=== PATIENT | female | born 1945 | race Caucasian/White ===

== ENCOUNTER 2023-09-24 00:29 | Inpatient (IN) | payer MEDICARE, SELFPAY ==
[2023-09-24] VITALS (19 sets, daily range): BP systolic 161–280; BP diastolic 80–120; PULSE 67–83; RESP 12–23; TEMP 36.6–37; O2SAT 95–100; BMI 21.1
--- NOTE | ~2023-09-24 | US_ITS ---
EXAMINATION: US RETROPERITONEAL LIMITED (RENAL ONLY) CLINICAL INFORMATION: CLEMENTE, JANEY. COMPARISON: None available. TECHNIQUE: Routine grayscale, color color and Doppler imaging of kidneys was performed. FINDINGS: RIGHT KIDNEY: 10.5 x 4.1 x 4.5 cm (SAG x AP x TRV). The kidney is normal in size, contour, and echogenicity. Renal cortical thickness is normal. There are no echogenic calculi seen. There is anechoic cyst with septation midpole measuring 5.0 x 2.5 x 3.7 cm. No congenital calculi seen.. No hydronephrosis. On Doppler imaging there is index upper pole is 0.67, midpole 0.67 and lower pole are 0.59. Peak systolic velocity/end osteoblastic velocity proximal renal artery measures 103/14.6 cm/second, midsegment measures 71.6/21.6 cm/second and distal segment measures 79.3/20.8 cm/second. The abdominal aorta is of normal caliber with peak systolic velocity of 75.5 cm/second LEFT KIDNEY: The left kidney has been surgically removed. US/US renal BI IMPRESSION: 1. No echogenic renal calculi or hydronephrosis. 2. Complex cyst midpole right kidney. 3. Normal Doppler imaging right kidney. 4. The left kidney has been surgically removed.
--- NOTE | ~2023-09-24 | US_ITS ---
EXAMINATION: US RETROPERITONEAL LIMITED (RENAL ONLY) CLINICAL INFORMATION: CLEMENTE, JANEY. COMPARISON: None available. TECHNIQUE: Routine grayscale, color color and Doppler imaging of kidneys was performed. FINDINGS: RIGHT KIDNEY: 10.5 x 4.1 x 4.5 cm (SAG x AP x TRV). The kidney is normal in size, contour, and echogenicity. Renal cortical thickness is normal. There are no echogenic calculi seen. There is anechoic cyst with septation midpole measuring 5.0 x 2.5 x 3.7 cm. No congenital calculi seen.. No hydronephrosis. On Doppler imaging there is index upper pole is 0.67, midpole 0.67 and lower pole are 0.59. Peak systolic velocity/end osteoblastic velocity proximal renal artery measures 103/14.6 cm/second, midsegment measures 71.6/21.6 cm/second and distal segment measures 79.3/20.8 cm/second. The abdominal aorta is of normal caliber with peak systolic velocity of 75.5 cm/second LEFT KIDNEY: The left kidney has been surgically removed. US/US renal doppler IMPRESSION: 1. No echogenic renal calculi or hydronephrosis. 2. Complex cyst midpole right kidney. 3. Normal Doppler imaging right kidney. 4. The left kidney has been surgically removed.
--- NOTE | ~2023-09-24 | XR_ITS ---
EXAMINATION: XR CHEST CLINICAL INFORMATION: Syncope. COMPARISON: 07/08/2015. TECHNIQUE: Frontal view of the chest was obtained. FINDINGS: The cardiomediastinal silhouette is stable and within normal limits. There is apparent pulmonary vascular congestion and diffuse increased markings. There is blunting of the costophrenic angles. The bony structures and soft tissues are unremarkable XR/XR chest 1V IMPRESSION: Pulmonary vascular congestion and diffuse increased markings. Consider developing fluid overload or congestive heart failure with early edema. There appear to be small bilateral pleural effusions.
--- NOTE | ~2023-09-24 | US_ITS ---
EXAMINATION: US EXTRACRANIAL CAROTID DUPLEX, BILATERAL CLINICAL INFORMATION: Syncope COMPARISON: None available. TECHNIQUE: Real-time ultrasound and Doppler techniques (integrating B-mode 2-D vascular images, Doppler spectral analysis and color-flow Doppler imaging) were utilized to interrogate the extracranial carotid arteries, the vertebral arteries and proximal subclavian arteries bilaterally. The degree of stenosis is determined by criteria similar to NASCET. FINDINGS: Right Side: 1. There is high atherosclerotic plaque seen in the bifurcation/proximal ICA/bulb region. 2. The common carotid artery PSV proximally is 85 cm/s and distally 72 cm/s. 3. The proximal internal carotid artery velocities are 84 cm/s systolic and 22 cm/s diastolic. 4. The proximal external carotid artery PSV is 114 cm/s. 5. The vertebral artery shows antegrade is flow. 6. The subclavian artery waveforms are normal. Left Side: 1. There is soft atherosclerotic plaque seen in the bifurcation/proximal ICA region. 2. The common carotid artery PSV proximally is 103 cm/s and distally 8 cm/s. 3. The proximal internal carotid artery velocities are 79 cm/s systolic and 14 cm/s diastolic. 4. The proximal external carotid artery PSV is 135 cm/s. 5. The vertebral artery shows antegrade flow. 6. The subclavian artery waveforms are normal. US/US carotid duplex BI IMPRESSION: 1. RIGHT: No hemodynamically significant stenosis in right carotid artery. 2. LEFT: 0-49% range stenosis in left proximal ICA and bulb region. 3. Normal antegrade flow seen in both vertebral arteries.
--- NOTE | ~2023-09-24 | CT_ITS ---
EXAMINATION: CT head/brain wo IV con, CT cervical spine wo IV con CLINICAL INFORMATION: Reason for Exam FALL HEAD STRIKE COMPARISON: MRI brain 06/04/2014 TECHNIQUE: Contiguous axial imaging was performed from the skull base to vertex without intravenous contrast. Sagittal and coronal reformatted images were obtained. CT images of the cervical spine were acquired without intravenous contrast. This CT examination was performed using dose optimization techniques as appropriate, variously including the following: * Automated exposure control * Adjustment of mA and/or kV according to patient size (this includes techniques or standardized protocols for targeted exams where dose is matched to indication/reason for exam; i.e. extremities or head) Use of iterative reconstruction technique DLP: 830.97 mGy-cm mGy-cm FINDINGS: CT HEAD: Motion degraded examination. There is no evidence of acute intracranial hemorrhage. No mass-effect or ventricular shift is noted. No acute, territorial loss of bishop-white differentiation. Encephalomalacia/gliosis in the right occipital lobe. Generalized cerebral volume loss with associated ventricular and sulcal prominence.Periventricular and subcortical white matter hypodensity is nonspecific but likely represents chronic microvascular ischemic change. Intracranial atherosclerotic calcification is noted. Soft tissue swelling/hematoma along the right posterior calvarium. No underlying depressed calvarial fracture.The paranasal sinuses are well-aerated. The mastoid air cells are clear. Bilateral intraocular lens replacements. CT CERVICAL SPINE: No prevertebral soft tissue swelling. The craniocervical junction is intact. The cervical lordosis is preserved. Grade 1 anterolisthesis of C4-C5, C5-C6, and C7-T1. Vertebral body heights are normal without acute compression fracture. No suspicious osseous lesion. There is multilevel cervical spondylosis. Biapical pleural parenchymal scarring. CT/CT cervical spine wo IV con IMPRESSION: No acute intracranial hemorrhage. Soft tissue swelling/hematoma along the right posterior calvarium. No underlying depressed calvarial fracture. No acute, displaced cervical spine fracture.
--- NOTE | 2023-09-24 00:48 | PC.NURSE ---
provider Elmolgy aware patient presenting with slight confusion and high BP. At time of triage pt pupils reactive. Pt answering questions however confused about what happened, why she is here, what the year is , and what her date of is. Per patient usually A&Ox4 with no confusion. Head CT/C spine CT ordered.
--- NOTE | 2023-09-24 00:59 | ECG_ITS ---
Test Reason : FALL Blood Pressure : / mmHG Vent. Rate : 068 BPM Atrial Rate : 068 BPM P-R Int : 156 ms QRS Dur : 086 ms QT Int : 430 ms P-R-T Axes : 032 -24 049 degrees QTc Int : 457 ms Normal sinus rhythm Minimal voltage criteria for LVH, may be normal variant ( Fuentes product ) Anteroseptal infarct (cited on or before 04-JUN-2014) Abnormal ECG When compared with ECG of 09-JUL-2015 07:04, No significant change was found Referred By: Chalino Dockery Electronically Signed By:ZANE SANTACRUZ
--- NOTE | 2023-09-24 01:04 | ED_ITS ---
HPI - Head Injury General Chief complaint: Head Injury Stated complaint: FALL Time Seen by Provider: 09/24/23 00:51 Source: patient, family () and EMS Mode of arrival: EMS Limitations: physical limitation (Patient is a poor historian) History of Present Illness HPI Narrative: This is a 78-year-old female brought in by ambulance for evaluation after fall/syncope. Patient and left together independently at home as per patient, patient otherwise unable to provide history, no old records for this patient in our facility despite patient confirmed she has been here before, patient can not confirm her medication including anticoagulation therapy, do not remember details of the fall, complaining of right occipital area hematoma and pain with headache. Patient declined CP or SOB. Declined any other injury or pain in the extremities. Related Data Allergies Allergy/AdvReac Type Severity Reaction Status Date / Time No Known Allergies Allergy Verified 09/24/23 00:48 Review of Systems 2 Review of Systems: All other systems are reviewed and are negative Constitutional: Reports as per HPI and Reports no additional constitutional complaints Eyes: Reports as per HPI and Reports no additional eye complaints Reports system reviewed and no additional complaints, except as documented Cardiovascular: Reports as per HPI and Reports no additional cardiovascular complaints Respiratory: Reports as per HPI and Reports no additional respiratory complaints Gastrointestinal: Reports as per HPI and Reports no additional gastrointestinal complaints Genitourinary: Reports no additional female genitourinary complaints Musculoskeletal: Reports no additional musculoskeletal complaints Skin/Breast: Reports system reviewed and no additional complaints, except as docu Psychiatric: Reports no additional psychiatric complaints Endocrine: Reports no additional endocrine complaints Hematologic/Lymphatic: Reports no additional hematologic/lymphatic complaints Allergic/Immunologic: Reports no additional allergic/immunologic complaints Reports system reviewed and no additional complaints, except as documented and Reports Abnormal speech present [facility] Social History Social History Smoked in Last 30 Days: No Use of substances other than those prescribed or required for medical reasons: No Advance Directives: No Advance Directives Information Provided: Yes Physical Exam 2 Vital Signs: Vital Signs: Last Vital Signs Pulse 69 09/24/23 02:53 Resp 16 09/24/23 02:53 BP 232/93 H 09/24/23 02:53 Pulse Ox 99 09/24/23 02:53 O2 Del Method Room Air 09/24/23 02:53 BMI result Body Mass Index 21.1 Vital signs have been reviewed and appear to be correct. Blood pressure elevated. Heart rate normal. Respiratory rate normal. Temperature normal. Oxygen saturation normal. Appearance: Alert. Oriented X2 place, person but not to time. No acute distress. GCS 15 Head: Normal external exam. Normocephalic. 3 x 3 cm area of right occipital hematoma, no step-off, no deformity. No Shen signs noted. No raccoon eyes noted Eyes: PERRLA. EOMI. Conjunctiva and sclera normal. Eyelids normal. ENT: TM's Normal. Pharynx normal. Uvula midline. Moist mucous membranes. No trismus noted. No drooling noted. No muffled voice noted. Neck: Normal inspection. Neck supple. FROM. No adenopathy. Thyroid Normal. No meningeal signs. No neck mass noted. CVS: Normal heart rate and rhythm. Heart sound normal. No murmurs noted. Pulses normal throughout. Respiratory: No respiratory distress. Painless inspiration. Breath sounds normal. No wheezes/rales/rhonchi noted. Chest nontender. No accessory muscle usage noted or decreased air movement noted. Abdomen: Soft and nontender. Bowel sounds normal in all 4 quadrants. No distention noted. No organomegaly noted. No visible injury noted. Back: No CVA tenderness. Full range of motion noted. Skin: Skin warm and dry. Normal skin color. Normal skin turgor. No rashes/lesions/lacerations noted. Extremities: +1 lower extremity edema. Extremities exhibit normal range of motion. Extremities nontender. Neuro: Oriented X2 not to time.. Cranial nerve exam: II-XII are grossly intact No motor deficit. No sensory deficit. Reflexes normal. Course Reevaluation(s) Reevaluation #1: A 78-year-old female with unknown past medical history patient is a poor historian appears to be secondary to dementia no record is available in our facility and patient does not know what she normally receives her medical care came in after she sustained a fall of unclear mechanism but possibly syncope, x- ray of the chest show pulmonary edema with elevated BNP patient declined any dyspnea or PND, found to have high blood pressure in the emergency department will give her a dose of Lasix/nitro paste/low dose of amlodipine for elevated blood pressure. Occipital scalp hematoma with no intracranial bleed with GCS of 15. Time: 02:59 Medical Decision Making Differential Diagnosis Differential Diagnoses: The differential diagnosis associated with the presentation includes (Severe anemia, electrolyte abnormality, intracranial bleed, coagulopathy, ACS, syncope, mechanical fall, cervical spine injury, CHF.) Admission/Observation Consideration of admission/observation: Escalation of care including admission/observation considered Lab Data MDM Lab Attestation statement: I reviewed the patient's lab results. 09/24/23 01:30 09/24/23 01:30 Labs: Lab Results 09/24/23 Range/Units 01:30 WBC 5.3 (4.8-10.8) X10*3/uL RBC 3.30 L (4.20-5.50) X10*6/uL Hgb 12.1 (12.0-16.0) g/dl Hct 35.5 L (37.0-47.0) % MCV 107.6 H (80.0-98.0) fL MCH 36.7 H (27.0-33.0) pg MCHC 34.1 (31.0-35.0) g/dl RDW 14.2 (11.0-16.0) % Plt Count 200 (160-400) X10*3/uL MPV 10.4 (9.4-12.3) fL Immature Gran % (Auto) 0.4 (0.0-0.4) % Neut % (Auto) 56.7 (45-73) % Lymph % (Auto) 25.7 (20-40) % [place] % (Auto) 12.7 H (2-11) % Eos % (Auto) 3.4 (0-4) % Baso % (Auto) 1.1 (0-2) % Lymph # (Auto) 1.4 (1.2-4.9) X10*3/uL [place] # (Auto) 0.7 (0.1-1.2) X10*3/uL Eos # (Auto) 0.2 (0.0-0.4) X10*3/uL Baso # (Auto) 0.1 (0.0-0.2) X10*3/uL Abs Immat Gran (auto) 0.02 (0.00-0.03) X10*3/uL Absolute Neuts (auto) 3.0 (2.0-8.3) x10*3/uL Absolute Nucleated RBC 0.000 (0.0-0.012) X10*3/uL Nucleated RBC % (auto) 0.0 (0.0-0.2) /100WBC PT 11.5 (11.1-13.3) SEC INR 0.9 (0.9-1.1) Sodium 141 (135-145) mmol/L Potassium 4.8 (3.3-5.1) mmol/L Chloride 107 (96-108) mmol/L Carbon Dioxide 25 (22-29) mmol/L Anion Gap 14 (12-20) BUN 16 (9-16) mg/dL Creatinine 1.76 H (0.5-1.4) mg/dL Estim Creat Clear Calc 18.6 Estimated GFR 28 Random Glucose 88 (60-115) mg/dL Calcium 8.9 (8.4-10.2) mg/dL Total Bilirubin 0.5 (0.0-1.0) mg/dL Direct Bilirubin 0.1 (0.0-0.5) mg/dL AST 30 (5-31) U/L ALT 12 (0-31) U/L Alkaline Phosphatase 88 (39-117) U/L Total Creatine Kinase 43 (26-140) U/L Troponin I High Sens 10.6 (<3.5-17.0) ng/L B-Natriuretic Peptide 677 H (<100) pg/mL Total Protein 6.8 (6.5-8.0) g/dL Albumin 3.3 L (3.5-5.0) g/dL Lipase 51 (8-78) U/L Independent Interpretation I performed an independent interpretation of an: Plain X-Ray (Chest:Pulmonary vascular congestion and diffuse increased markings. Consider developing fluid overload or congestive heart failure with early edema. There appear to be small bilateral pleural effusions. ) and CT Scan (Head/C-spine:No acute intracranial hemorrhage. Soft tissue swelling/hematoma along the right posterior calvarium. No underlying depressed calvarial fracture. No acute, displaced cervical spine fracture.) Radiology Impression Discussion of test interpretation with radiology: I have reviewed the radiologist's reading. Chronic Conditions Patient?s care impacted by: Hypertension Critical Care Time Critical Care Time Critical Care Time: Yes Total Critical Care Time: 45 Attestation: I spent 45 minutes providing critical care service to the patient, this including time spent at the bedside to evaluate the patient, reassess the patient, monitoring vital signs, review labs, and radiographic studies, counseling the patient/family, discussing the case with consultants, disposition the patient. Discharge Plan Discharge Clinical Impression: Closed head injury, Syncope, CHF (congestive heart failure), Hypertension Patient Disposition: Admitted As Inpatient
[2023-09-24 01:36] LABS: MANUAL DIFF FLAG NO
[2023-09-24 01:38] LABS: Basophils Absolute Auto 0.1 X10*3/uL (0.0-0.2); Basophils Percent Auto 1.1 % (0-2); Eosinophils Absolute Auto 0.2 X10*3/uL (0.0-0.4); Eosinophils Percent Auto 3.4 % (0-4); Hematocrit 35.5 % (37.0-47.0); Hemoglobin 12.1 g/dl (12.0-16.0); Imm Gran Abs Auto 0.02 X10*3/uL (0.00-0.03); Imm Gran Pct Auto 0.4 % (0.0-0.4); Lymphocytes Absolute Auto 1.4 X10*3/uL (1.2-4.9); Lymphocytes Percent Auto 25.7 % (20-40); Mean Corpuscular HGB Conc 34.1 g/dl (31.0-35.0); Mean Corpuscular Hemoglobin 36.7 pg (27.0-33.0); Mean Corpuscular Volume 107.6 fL (80.0-98.0); Mean Platelet Volume 10.4 fL (9.4-12.3); Monocytes Absolute Auto 0.7 X10*3/uL (0.1-1.2); Monocytes Percent Auto 12.7 % (2-11); Neutrophils Percent Auto 56.7 % (45-73); Platelet Count 200 X10*3/uL (160-400); Red Cell Distribution Width 14.2 % (11.0-16.0); White Blood Count 5.3 X10*3/uL (4.8-10.8)
[2023-09-24 01:44] LABS: INTERNATIONAL NORM RATIO 0.9 (0.9-1.1); Prothrombin Time 11.5 SEC (11.1-13.3)
[2023-09-24 01:57] LABS: Alanine Aminotransferase 12 U/L (0-31); Albumin Level 3.3 g/dL (3.5-5.0); Alkaline Phosphatase 88 U/L (39-117); Anion Gap 14 (12-20); Aspartate Amino Transferase 30 U/L (5-31); Bilirubin Direct 0.1 mg/dL (0.0-0.5); Bilirubin Total 0.5 mg/dL (0.0-1.0); Blood Urea Nitrogen 16 mg/dL (9-16); Calcium 8.9 mg/dL (8.4-10.2); Carbon Dioxide 25 mmol/L (22-29); Chloride 107 mmol/L (96-108); Creatinine Clr Calc Pharmacy 18.6; Estimated Glomerular Filt Rate 28; Glucose Random 88 mg/dL (60-115); Lipase 51 U/L (8-78); Potassium 4.8 mmol/L (3.3-5.1); Sodium 141 mmol/L (135-145); Total Protein 6.8 g/dL (6.5-8.0)
[2023-09-24 01:58] LABS: B Type Natriuretic Peptide 677 pg/mL (<100); Troponin-I High Sensitivity 10.6 ng/L (<3.5-17.0)
--- NOTE | 2023-09-24 02:53 | PC.NURSE ---
PTS BP continues to be elevated at 232/93, Dr. French made aware, Amlodipine ordered. PT continues to be confused, asked this sports book writer several times how she hit her head. Dr. French aware.
[2023-09-24 02:59] LABS: Appearance Urine Clear; Color Urine Yellow; Glucose Urine UA Negative (Negative); Leukocyte Esterase Urine Trace (Negative); Nitrite Urine Negative (Negative); PH 7.5 (5.0-9.0); Specific Gravity - Urine <= 1.005 (1.005-1.025); UMIC TRIGGER UACC YES; Urine Blood Negative (Negative); Urine Ketones Negative (Negative); Urine Protein Negative (Neg-Trace)
[2023-09-24] MEDS: amLODIPine Besylate 5 MG TABLET PO (02:59)
[2023-09-24 03:01] LABS: Bacteria Urine None Seen (None Seen); Hyaline Casts Urine 0-2 /LPF (0-2); RBC Urine 0-2 /HPF (0-2); Squamous Epithelial Cell Urine 0-2 /HPF (0-2); WBC Urine 0-5 /HPF (0-5)
[2023-09-24] MEDS: Nitroglycerin 2 % Oint 1 GM Packet 0.5 INCH TRANSDERMA (03:02)
[2023-09-24] MEDS: Furosemide 40 MG/4 ML VIAL IVPUSH ×2 (03:03→09:41)
--- NOTE | 2023-09-24 04:05 | P.HPHOSP_ITS ---
History of Present Illness Date of Service: 09/24/23 Attending physician on admission: Jocelyn Hussein Chief Complaint: Loss of consciousness Nataliya Forrest is a 78 years old woman who was brought to the ED via EMS after she sustained a fall and hit the posterior aspect of her head. The patient does not have any recollection of what happened and was unable to provide a precise HPI. Even her who was at bedside was not contributing much to the HPI. She does not recall the name of her medication or her past medical history. She thinks that she uses a medication for high blood pressure. She told me multiple occasions that she is always in good health and that she has been always healthy one . At the moment, she only complains of headache related to the head trauma. She denied dizziness, shortness on breath at rest or exertion, chest pain, palpitations, focal weakness, cough, fever or chills. She denies edema to lower extremities. She did not complain of any abdominal pain, nausea, vomiting or diarrhea. In the ED, she was found to have significant systolic hypertension. The rest of the vital signs are normal. Her oxygen saturation is 99% on room air. Blood workup showed no leukocytosis. MCV is elevated. There are no electrolyte imbalances. Creatinine is 1.76. BNP is elevated, 677. LFTs are normal. Head and c-spine CT scans are unremarkable. CXR showed pulmonary vascular congestion and diffuse increased marking (fluid overload or CHF with early edema). ED tx: Amlodipine 5 mg p.o., Lasix 40 mg IV, nitro ointment 0.5 in transdermal, acetaminophen 975 mg PO. Review of Systems 2 Review of Systems: Limited, possibly underlying dementia. [facility] Social History Smoked in Last 30 Days: No Use of substances other than those prescribed or required for medical reasons: No Advance Directives: No Advance Directives Information Provided: Yes Meds Allergies Allergy/AdvReac Type Severity Reaction Status Date / Time No Known Allergies Allergy Verified 09/24/23 00:48 Active Medications: Current Medications Acetaminophen (Acetaminophen 325 Mg Tablet) 650 mg PO Q6H PRN PRN Reason: Pain, Mild (Pain Scale 1-3) Furosemide (Furosemide 20 Mg Tablet) 20 mg PO DAILY RAMY; Protocol Heparin Sodium (Porcine) (Heparin Sodium,Porcine 5,000 Unit/Ml Vial) 5,000 unit SUBCUT Q12H [facility] Sodium Chloride (0.9 % Sodium Chloride Flush 3 Ml Syringe) 3 ml IVFLUSH QSHIFT RAMY Physical Exam 2 Vital Signs and Narrative: Vital Signs: Last Vital Signs Pulse 69 09/24/23 02:53 Resp 16 09/24/23 02:53 BP 232/93 H 09/24/23 02:53 Pulse Ox 99 09/24/23 02:53 O2 Del Method Room Air 09/24/23 02:53 BMI result Body Mass Index 21.1 Constitutional - Awake and Alert, No apparent distress Eyes - PERRLA, EOMI Cardiovascular - S1S2, RRR, No edema Respiratory - Normal lung expansion, Normal respiratory effort, No respiratory distress. Bibasilar crackles. Gastrointestinal - NT / ND; +BS; No rebound or guarding Extremities - No calf tenderness bilaterally, no swelling Musculoskeletal - Normal inspection, normal ROM Skin - Warm/Dry Neurological - Alert & oriented x3. No focal weakness. Normal speech Psychological - Appropriate affect Results Labs 09/24/23 01:30 09/24/23 01:30 Labs: Laboratory Results - last 24 hr 09/24/23 09/24/23 01:30 02:51 MCV 107.6 H MCH 36.7 H MCHC 34.1 RDW 14.2 Plt Count 200 MPV 10.4 Immature Gran % (Auto) 0.4 Neut % (Auto) 56.7 Lymph % (Auto) 25.7 Moore % (Auto) 12.7 H Eos % (Auto) 3.4 Baso % (Auto) 1.1 Lymph # (Auto) 1.4 Moore # (Auto) 0.7 Eos # (Auto) 0.2 Baso # (Auto) 0.1 Abs Immat Gran (auto) 0.02 Absolute Neuts (auto) 3.0 Absolute Nucleated RBC 0.000 Nucleated RBC % (auto) 0.0 PT 11.5 INR 0.9 Anion Gap 14 Estim Creat Clear Calc 18.6 Estimated GFR 28 Random Glucose 88 Calcium 8.9 Total Bilirubin 0.5 Direct Bilirubin 0.1 AST 30 ALT 12 Alkaline Phosphatase 88 Total Creatine Kinase 43 B-Natriuretic Peptide 677 H Total Protein 6.8 Albumin 3.3 L Lipase 51 Urine Color Yellow Urine Appearance Clear Urine pH 7.5 Ur Specific [place] <= 1.005 Urine Protein Negative Urine Glucose (UA) Negative Urine Ketones Negative Urine Blood Negative Urine Nitrite Negative Ur Leukocyte Esterase Trace H Urine RBC 0-2 Urine WBC 0-5 Ur Squamous Epith Cells 0-2 Urine Bacteria None Seen Hyaline Casts 0-2 Imaging Radiologist's Impressions: Impressions Chest X-Ray 09/24/23 01:10 IMPRESSION: Pulmonary vascular congestion and diffuse increased markings. Consider developing fluid overload or congestive heart failure with early edema. There appear to be small bilateral pleural effusions. Cervical Spine CT 09/24/23 01:21 IMPRESSION: No acute intracranial hemorrhage. Soft tissue swelling/hematoma along the right posterior calvarium. No underlying depressed calvarial fracture. No acute, displaced cervical spine fracture. Head CT 09/24/23 01:21 IMPRESSION: No acute intracranial hemorrhage. Soft tissue swelling/hematoma along the right posterior calvarium. No underlying depressed calvarial fracture. No acute, displaced cervical spine fracture. Assessment and Plan (1) Pulmonary edema: Qualifiers: Chronicity: acute Qualified Code(s): J81.0 - Acute pulmonary edema Status: Acute (2) Hypertension: Qualifiers: Hypertension type: primary hypertension Qualified Code(s): I10 - Essential (primary) hypertension Status: Acute (3) Syncope: Qualifiers: Syncope type: unspecified Qualified Code(s): R55 - Syncope and collapse Status: Acute (4) Closed head injury: Qualifiers: Encounter type: initial encounter Qualified Code(s): S09.90XA - Unspecified injury of head, initial encounter Status: Acute Plan Nataliya Forrest is a 78 years old woman presents with: * Syncope. Keeping observation. Telemetry. * Mild pulmonary edema (no shortness a breath, no chest pain, normal oxygen saturation). Pulse oximetry. Supplemental oxygen if needed Continue Lasix. Check TTE. Recheck BNP. Check troponin x2. * Uncontrolled hypertension. Continue Norvasc. * Headache secondary to head trauma. Head and C-spine CT scan are normal. Tylenol as needed. * Fall. Fall precautions. Check vitamin-D level. * Elevated MCV. Check folate and vitamin B12. * Dementia? Check TSH and vitamin B12. DVT prophylaxis: Heparin subcut Code status: Full Quality Stroke Does the patient have a stroke diagnosis?: No VTE Prior VTE?: No VTE Risk Level:: Medical - moderate - high VTE Device Contraindication: Treatment Not Indicated VTE Drug Contraindication: N/A - Med Ordered
--- NOTE | 2023-09-24 04:21 | PC.NURSE ---
Dr. Casey Hussein aware of BP. pt crying stating she needs to go home tonight and there is no reason for me to stay here. pt educated on plan of care and medical necessity to stay. pt axo to self and place unable to state situation/believes it is 2022. previous shift stated this has been baseline since arrival. Dr. Casey Hussein aware of mentation and behavior at this time. PERRLA. skin wpd.
[2023-09-24] MEDS: LORazepam 0.5 MG TABLET 0.25 MG PO (04:43)
[2023-09-24] MEDS: Acetaminophen 325 MG TABLET 975 MG PO (04:43)
--- NOTE | 2023-09-24 05:10 | PC.NURSE ---
Addendum entered by Melva Grant 09/24/23 05:15: call bender within reach. tv turned on for pt. Original Note: pt had moderate BM appears dark. Dr. Casey Hussein visualized stool; obs obtained at bedside sent to lab. pt had an incontinence episode following; changed new bed linen provided. purewick provided. skin intact no sores/wounds/abrasions noted. PERRLA. neuros intact. pt appears more calm now. pt moved to room 10 closer to nurses station. Dr. Casey Hussein aware of vs.
[2023-09-24 05:14] LABS: MANUAL DIFF FLAG NO
[2023-09-24 05:19] LABS: Basophils Percent Auto 0.6 % (0-2); Eosinophils Absolute Auto 0.2 X10*3/uL (0.0-0.4); Eosinophils Percent Auto 3.7 % (0-4); Hematocrit 34.8 % (37.0-47.0); Hemoglobin 11.9 g/dl (12.0-16.0); Imm Gran Abs Auto 0.02 X10*3/uL (0.00-0.03); Imm Gran Pct Auto 0.3 % (0.0-0.4); Lymphocytes Absolute Auto 1.7 X10*3/uL (1.2-4.9); Lymphocytes Percent Auto 26.7 % (20-40); Mean Corpuscular HGB Conc 34.2 g/dl (31.0-35.0); Mean Corpuscular Hemoglobin 36.3 pg (27.0-33.0); Mean Corpuscular Volume 106.1 fL (80.0-98.0); Mean Platelet Volume 10.5 fL (9.4-12.3); Monocytes Absolute Auto 0.8 X10*3/uL (0.1-1.2); Monocytes Percent Auto 13.4 % (2-11); Neutrophils Absolute Auto 3.4 x10*3/uL (2.0-8.3); Neutrophils Percent Auto 55.3 % (45-73); Platelet Count 203 X10*3/uL (160-400); Red Blood Count 3.28 X10*6/uL (4.20-5.50); Red Cell Distribution Width 13.8 % (11.0-16.0); White Blood Count 6.2 X10*3/uL (4.8-10.8)
[2023-09-24 05:21] LABS: OBS Int Ctl Valid YES; OBS1 NEGATIVE (NEGATIVE)
[2023-09-24 05:40] LABS: Alanine Aminotransferase 11 U/L (0-31); Albumin Level 3.3 g/dL (3.5-5.0); Alkaline Phosphatase 88 U/L (39-117); Anion Gap 16 (12-20); Aspartate Amino Transferase 25 U/L (5-31); Bilirubin Total 0.5 mg/dL (0.0-1.0); Blood Urea Nitrogen 17 mg/dL (9-16); Calcium 9.2 mg/dL (8.4-10.2); Carbon Dioxide 23 mmol/L (22-29); Chloride 107 mmol/L (96-108); Creatinine Clr Calc Pharmacy 18.2; Estimated Glomerular Filt Rate 27; Glucose Random 86 mg/dL (60-115); Potassium 4.4 mmol/L (3.3-5.1); Sodium 142 mmol/L (135-145); Total Protein 6.6 g/dL (6.5-8.0)
[2023-09-24 05:44] LABS: Troponin-I High Sensitivity 8.3 ng/L (<3.5-17.0)
[2023-09-24 06:11] LABS: Folate 3.6 ng/mL (> or = 4.0); Vitamin B12 323 pg/mL (200-900)
[2023-09-24] MEDS: Labetalol HCL 100 MG/20 ML VIAL 10 MG IVPUSH ×4 (06:53→22:54)
[2023-09-24] MEDS: Pantoprazole Sodium 40 MG/10 ML VIAL IVPUSH (06:53)
--- NOTE | 2023-09-24 06:54 | PC.NURSE ---
pt found oob trying to leave. pt reassured and brought back to stretcher. placed back on heart monitor and vitals obtained. bp as noted prn labetolol given. call bender within reach. charge account clerk aware of need for sitter.
[2023-09-24] MEDS: Nitroglycerin 2 % Oint 1 GM Packet 1 INCH TRANSDERMA ×2 (07:34→19:18)
--- NOTE | 2023-09-24 08:08 | PHA.MEDREC ---
Pharmacy Consult ? Medication Reconciliation Pharmacy has completed the medication reconciliation.Confirmed medications with patient. Patient is unsure if she takes carvedilol 25mg BID (prescription) says she takes it at least once in the AM. Also is prescribed Alendronate 70mg but states is unsure if she is taking it.
--- NOTE | 2023-09-24 08:14 | MHC.EDTECH ---
placed a purewick after washing and replacing the chucks on the patients bed. trying a purewick to see if she will stay still enough for it to be effective.
[2023-09-24] MEDS: Heparin Sodium,Porcine 5,000 UNIT/ML VIAL 5000 UNIT SUBCUT ×2 (09:41→20:46)
[2023-09-24] MEDS: 0.9 % Sodium Chloride Flush 3 ML SYRINGE IVFLUSH ×3 (09:42→22:50)
[2023-09-24 11:05] LABS: Troponin-I High Sensitivity 10.8 ng/L (<3.5-17.0)
--- NOTE | 2023-09-24 11:28 | PC.NURSE ---
pt reports she wants to go home, refusing to allow staff to call her family - reportedly has two sons but pt and her do not know their numbers. pt reported to DR. Mcdonough that she is afraid that she will before seeing her sons again. both pt and at bedside severely confused, only alert to self. pts took off pts nitro paste, has been helping pt get dressed, both pt and report they are wanting to go home and they will walk home. dr mcdonough at beside talking with pt about the dangers of leaving and going home given her BP pt agreeable to stay, agreed to have Dr. Mcdonough call her son(s). unfortunately, no phone number at this time is available.
--- NOTE | 2023-09-24 11:48 | PC.NURSE ---
pts belongings removed from her room and held at nurses station as they encourage pt to get dressed and leave. shirt, pants and bra in bag
--- NOTE | 2023-09-24 12:04 | MHC.CM.PN ---
Addendum entered by Diana Gilbert 09/24/23 16:19: AFTER SPEAKING WITH HOSPITALIST, PTS SON DECIDED TO COME STAY WITH HIS FATHER WHILE HIS MOTHER IS IN THE HOSPITAL HE IS AWARE HIS FATHER HAS MEMORY IMPAIRMENT AND SAYS HE WILL PROVIDE ANY NECESSARY CARE DCP: HOME ? NEW VNA AND REFERRAL TO [facility] FOR [facility] SERVICES PTS SON TO TRANSPORT Addendum entered by Diana Gilbert 09/24/23 12:10: IMM ALSO DELIVERED TO PTS SON VIA T/C Original Note: CM MET WITH PT AND , JORDYN, AT BEDSIDE THEY REPORT THEY LIVE ALONE AND HAVE BEEN INDEPENDENT WITH CARE THEY HAVE TWO SONS, ONE IN [place] AND ONE IN [place] THEY INITIALLY REQUESTED FAMILY NOT BE CONTACTED THEY REPORT PT DOES NOT USE ANY DME AND HAD NO SERVICES BOTH PT AND INITIALLY SAID HE DROVE HERE, THEN SAID THEY GOT A RIDE PER EMR, PT ARRIVED BY AMBULANCE PT LATER STATED SHE WANTED TO LEAVE, SHE SAID IF SHE WERE TO , SHE WOULD WANT TO MAKE SURE SHE SAW HER BOYS SHE THEN AGREED TO LET HER SONS BE CONTACTED BUT DID NOT HAVE THEIR PHONE NUMBERS SHE PROVIDED CM WITH HER SONS NAME, AKOSUA WATKINS AND LOCATION IN [facility] CM WAS ABLE TO FIND RED NUMBER [phone] AND CALLED TO CONFIRM HIS RELATIONSHIP TO THE PT AKOSUA THEN SPOKE TO THE PT USING A CELL PHONE AFTER DISCUSSION, PT AGREES TO STAY AND RECEIVE TREATMENT AKOSUA IS CURRENTLY AWAITING A CALL FROM PTS HOSPITALIST IMM DELIVERED TO PT AND
--- NOTE | 2023-09-24 16:15 | PM.EVENT ---
Event Note Date of Service: 09/24/23 Event Note: Chart reviewed patient examined. Agree with the H&P as outlined. Aggressive blood pressure control. Spoke with son Clarence who will be here later today to assist with father's care Time Spent With Patient Time: Total time managing care of this patient today ____ minutes.
[2023-09-24] MEDS: lisinopriL 5 MG TABLET PO (16:53)
--- NOTE | 2023-09-24 18:36 | PC.NURSE ---
PT CONTINUALLY ATTEMPTING TO GET OUT OF BED, SHE ISTEARFUL,REPORTS NO ONE WILL SAY HI TO HER, PT STATES iM JUST A STUPID WOMAN . comfort provided. pt quickly attempts to exit her bed again. request made for 1:1 bedside sitter.
--- NOTE | 2023-09-24 18:43 | PC.NURSE ---
provided pt with sensory items to help calm her.
[2023-09-25] VITALS (7 sets, daily range): BP systolic 114–159; BP diastolic 56–72; PULSE 56–75; RESP 16–20; TEMP 36.2–37.2; O2SAT 96–99
--- NOTE | 2023-09-25 | ECG_ITS ---
Test Reason : cp Blood Pressure : / mmHG Vent. Rate : 072 BPM Atrial Rate : 072 BPM P-R Int : 136 ms QRS Dur : 080 ms QT Int : 440 ms P-R-T Axes : 000 190 106 degrees QTc Int : 481 ms Suspect limb lead reversal, interpretation assumes no reversal Normal sinus rhythm Minimal voltage criteria for LVH, may be normal variant ( Fuentes product ) Inferior infarct , age undetermined Anterolateral infarct (cited on or before 04-JUN-2014) Abnormal ECG When compared with ECG of 24-SEP-2023 01:40, QRS axis Shifted left Questionable change in initial forces of Lateral leads Referred By: Clarence Lam Electronically Signed By:Moses Crowder
[2023-09-25 06:12] LABS: MANUAL DIFF FLAG NO
[2023-09-25 06:35] LABS: Basophils Percent Auto 0.6 % (0-2); Eosinophils Absolute Auto 0.1 X10*3/uL (0.0-0.4); Eosinophils Percent Auto 2.6 % (0-4); Hematocrit 30.7 % (37.0-47.0); Hemoglobin 10.6 g/dl (12.0-16.0); Imm Gran Abs Auto 0.02 X10*3/uL (0.00-0.03); Imm Gran Pct Auto 0.4 % (0.0-0.4); Lymphocytes Absolute Auto 1.2 X10*3/uL (1.2-4.9); Lymphocytes Percent Auto 22.5 % (20-40); Mean Corpuscular HGB Conc 34.5 g/dl (31.0-35.0); Mean Corpuscular Hemoglobin 36.6 pg (27.0-33.0); Mean Corpuscular Volume 105.9 fL (80.0-98.0); Mean Platelet Volume 11.4 fL (9.4-12.3); Monocytes Absolute Auto 0.9 X10*3/uL (0.1-1.2); Monocytes Percent Auto 16.5 % (2-11); Neutrophils Absolute Auto 3.1 x10*3/uL (2.0-8.3); Neutrophils Percent Auto 57.4 % (45-73); Platelet Count 185 X10*3/uL (160-400); White Blood Count 5.3 X10*3/uL (4.8-10.8)
[2023-09-25 06:55] LABS: B Type Natriuretic Peptide 419 pg/mL (<100)
[2023-09-25 07:01] LABS: Alanine Aminotransferase 9 U/L (0-31); Albumin Level 3.1 g/dL (3.5-5.0); Alkaline Phosphatase 79 U/L (39-117); Aspartate Amino Transferase 20 U/L (5-31); Bilirubin Total 0.6 mg/dL (0.0-1.0); Blood Urea Nitrogen 22 mg/dL (9-16); Calcium 8.3 mg/dL (8.4-10.2); Creatinine Clr Calc Pharmacy 14.5; Estimated Glomerular Filt Rate 21; Glucose Fasting 87 mg/dL (60-99)
[2023-09-25 07:14] LABS: Anion Gap 16 (12-20); Carbon Dioxide 25 mmol/L (22-29); Chloride 103 mmol/L (96-108); Potassium 3.5 mmol/L (3.3-5.1); Sodium 140 mmol/L (135-145); Thyroid Stimulating Hormone 6.45 uIU/mL (0.32-4.0)
[2023-09-25] MEDS: Heparin Sodium,Porcine 5,000 UNIT/ML VIAL 5000 UNIT SUBCUT (09:43)
[2023-09-25] MEDS: 0.9 % Sodium Chloride Flush 3 ML SYRINGE IVFLUSH ×2 (09:43→16:38)
[2023-09-25] MEDS: lisinopriL 5 MG TABLET PO (09:44)
[2023-09-25] MEDS: Furosemide 20 MG TABLET PO ×2 (09:44→09:46)
[2023-09-25] MEDS: amLODIPine Besylate 5 MG TABLET PO (09:44)
[2023-09-25] MEDS: amLODIPine Besylate 10 MG TABLET PO (13:32)
[2023-09-25] MEDS: carvediloL 25 MG TABLET PO (13:32)
[2023-09-25] MEDS: Sertraline HCL 50 MG TABLET PO (13:33)
--- NOTE | 2023-09-25 14:14 | HO.PM.IMPN ---
Subjective Subjective Date of Service: 09/25/23 Interval History: No acute issues overnight. Blood pressure improved with resumption of therapies Review of Systems Denies chest pain Denies shortness of breath Denies nausea vomiting diarrhea Denies fever chills Physical Exam Vital Signs: Vital Signs: Last Vital Signs Temp 99.0 F 09/25/23 11:58 Pulse 73 09/25/23 11:58 Resp 20 09/25/23 11:58 BP 150/71 H 09/25/23 11:58 Pulse Ox 97 09/25/23 11:58 O2 Del Method Room Air 09/25/23 11:58 BMI result Body Mass Index 21.1 Const: Other: Awake alert no acute distress Resp: Other: Clear to auscultation bilaterally no rales rhonchi or wheezes Cardio: Other: No S4; positive S1-S2; no S3 murmurs rubs or gallops GI: Other: Soft nontender nondistended normoactive bowel sounds Extrem: Other: No edema bilaterally Objective Data Active Medications Acetaminophen (Acetaminophen 325 Mg Tablet) 650 mg PO Q6H PRN PRN Reason: Pain, Mild (Pain Scale 1-3) Amlodipine Besylate (Amlodipine Besylate 10 Mg Tablet) 10 mg PO DAILY [facility]; Protocol Last Admin: 09/25/23 13:32 Dose: 5 mg Documented By: ROLAND Carvedilol (Carvedilol 25 Mg Tablet) 25 mg PO DAILY [facility]; Protocol Last Admin: 09/25/23 13:32 Dose: 25 mg Documented By: ROLAND Heparin Sodium (Porcine) (Heparin Sodium,Porcine 5,000 Unit/Ml Vial) 5,000 unit SUBCUT Q12H [facility] Last Admin: 09/25/23 09:43 Dose: 5,000 unit Documented By: ROLAND Labetalol HCl (Labetalol Hcl 100 Mg/20 Ml Vial) 10 mg IVPUSH Q3H PRN PRN Reason: SBP > 160 Last Admin: 09/24/23 22:54 Dose: 10 mg Documented By: TYREE Losartan Potassium (Losartan Potassium 50 Mg Tablet) 100 mg PO DAILY [facility]; Protocol Last Admin: 09/25/23 13:35 Dose: Not Given Documented By: ROLAND Non-Admin Reason: See Note Comments: Medication change, dose will start during next schedule time Nitroglycerin (Nitroglycerin 2 % Oint 1 Gm Packet) 1 inch TRANSDERMA RQ6H WHILE AWAKE [facility] Last Admin: 09/25/23 12:27 Dose: Not Given Documented By: ERIKA Non-Admin Reason: no chest pain Sertraline HCl (Sertraline Hcl 50 Mg Tablet) 50 mg PO DAILY [facility] Last Admin: 09/25/23 13:33 Dose: 50 mg Documented By: ROLAND Sodium Chloride (0.9 % Sodium Chloride Flush 3 Ml Syringe) 3 ml IVFLUSH QSHIFT [facility] Last Admin: 09/25/23 09:43 Dose: 3 ml Documented By: ROLAND Labs 09/25/23 05:40 09/25/23 05:40 Labs: Laboratory Results - last 24 hr 09/25/23 05:40 MCV 105.9 H MCH 36.6 H MCHC 34.5 RDW 14.0 Plt Count 185 MPV 11.4 Immature Gran % (Auto) 0.4 Neut % (Auto) 57.4 Lymph % (Auto) 22.5 [place] % (Auto) 16.5 H Eos % (Auto) 2.6 Baso % (Auto) 0.6 Lymph # (Auto) 1.2 [place] # (Auto) 0.9 Eos # (Auto) 0.1 Baso # (Auto) 0.0 Abs Immat Gran (auto) 0.02 Absolute Neuts (auto) 3.1 Absolute Nucleated RBC 0.000 Nucleated RBC % (auto) 0.0 Anion Gap 16 Estim Creat Clear Calc 14.5 Estimated GFR 21 Fasting Glucose 87 Calcium 8.3 L D Total Bilirubin 0.6 AST 20 ALT 9 Alkaline Phosphatase 79 B-Natriuretic Peptide 419 H Total Protein 6.0 L Albumin 3.1 L TSH 6.45 H Assessment and Plan (1) Hypertension: Status: Acute (2) Pulmonary edema: Status: Acute Plan Nataliya Forrest is a 78 years old woman presents after near syncopal episode 1. Near-syncope -continue to monitor on telemetry -treat as appropriate 2. Uncontrolled hypertension with pulmonary edema -resume all outpatient therapies -adjust as indicated -renal consult -follow renals/divalents Heparin subcut Full code Requires ongoing hospitalization to achieve optimal blood pressure control to prevent recurrence of pulmonary edema. High risk of outpatient failure at this time Quality Stroke Does the patient have a stroke diagnosis?: No VTE Prior VTE?: No VTE Risk Level:: Medical - moderate - high VTE Device Contraindication: Treatment Not Indicated VTE Drug Contraindication: N/A - Med Ordered
[2023-09-25 16:25] LABS: Glucose, Whole Blood 141 mg/dL (60-115)
[2023-09-25] MEDS: Nitroglycerin 2 % Oint 1 GM Packet 1 INCH TRANSDERMA (16:38)
[2023-09-25 16:51] LABS: OBS Int Ctl Valid YES; OBS1 NEGATIVE (NEGATIVE)
[2023-09-26 04:00] VITALS: BP 139/67; PULSE 72; RESP 18; TEMP 36.2; O2SAT 99
[2023-09-26 06:01] LABS: MANUAL DIFF FLAG NO
[2023-09-26 06:26] LABS: Basophils Percent Auto 0.6 % (0-2); Eosinophils Absolute Auto 0.2 X10*3/uL (0.0-0.4); Eosinophils Percent Auto 4.2 % (0-4); Hematocrit 30.5 % (37.0-47.0); Hemoglobin 10.3 g/dl (12.0-16.0); Imm Gran Abs Auto 0.01 X10*3/uL (0.00-0.03); Imm Gran Pct Auto 0.2 % (0.0-0.4); Lymphocytes Absolute Auto 1.3 X10*3/uL (1.2-4.9); Lymphocytes Percent Auto 23.7 % (20-40); Mean Corpuscular HGB Conc 33.8 g/dl (31.0-35.0); Mean Corpuscular Hemoglobin 36.3 pg (27.0-33.0); Mean Corpuscular Volume 107.4 fL (80.0-98.0); Mean Platelet Volume 11.5 fL (9.4-12.3); Monocytes Absolute Auto 0.9 X10*3/uL (0.1-1.2); Monocytes Percent Auto 16.7 % (2-11); Neutrophils Absolute Auto 2.9 x10*3/uL (2.0-8.3); Neutrophils Percent Auto 54.6 % (45-73); Platelet Count 164 X10*3/uL (160-400); Red Blood Count 2.84 X10*6/uL (4.20-5.50); Red Cell Distribution Width 14.1 % (11.0-16.0); White Blood Count 5.3 X10*3/uL (4.8-10.8)
[2023-09-26 06:34] LABS: Alanine Aminotransferase 8 U/L (0-31); Alkaline Phosphatase 70 U/L (39-117); Anion Gap 14 (12-20); Aspartate Amino Transferase 16 U/L (5-31); Bilirubin Total 0.5 mg/dL (0.0-1.0); Blood Urea Nitrogen 28 mg/dL (9-16); Calcium 8.4 mg/dL (8.4-10.2); Carbon Dioxide 26 mmol/L (22-29); Chloride 102 mmol/L (96-108); Creatinine Clr Calc Pharmacy 13.2; Estimated Glomerular Filt Rate 19; Glucose Fasting 98 mg/dL (60-99); Potassium 3.7 mmol/L (3.3-5.1); Sodium 138 mmol/L (135-145)
[2023-09-26 07:22] VITALS: BP 169/74; PULSE 75; RESP 18; TEMP 36.6; O2SAT 100
--- NOTE | 2023-09-26 07:51 | P.CONNP_ITS ---
History of Present Illness Reason for Consult Consult date: 09/26/23 Chief Complaint Chief complaint: Syncope History of Present Illness Narrative: RTANE Consulted for JANEY CKD severe HTN full noted dictated JANEY: susp[ecy hemodymanic mediated and ques intolerance to TERRANCE/ARB and ? underlying CLEMENTE Severe HTN CKD 3: BSL SCr 1.5-1.8 Will follow w team [facility] Social History Social History Patient Tobacco Use Status: Never used Tobacco Smoked in Last 30 Days: No Use of substances other than those prescribed or required for medical reasons: No Currently Displaying Signs/Symptoms of Drug Intoxication Withdrawal: No Advance Directives: No Advance Directives Information Provided: Yes Nutrition Risks: No Nutritional Risk service: No Meds Allergies Allergy/AdvReac Type Severity Reaction Status Date / Time No Known Allergies Allergy Verified 09/24/23 00:48 Active Medications: Current Medications Acetaminophen (Acetaminophen 325 Mg Tablet) 650 mg PO Q6H PRN PRN Reason: Pain, Mild (Pain Scale 1-3) Amlodipine Besylate (Amlodipine Besylate 10 Mg Tablet) 10 mg PO DAILY [facility]; Protocol Last Admin: 09/25/23 13:32 Dose: 5 mg Carvedilol (Carvedilol 25 Mg Tablet) 25 mg PO DAILY [facility]; Protocol Last Admin: 09/25/23 13:32 Dose: 25 mg Heparin Sodium (Porcine) (Heparin Sodium,Porcine 5,000 Unit/Ml Vial) 5,000 unit SUBCUT Q12H [facility] Last Admin: 09/25/23 21:29 Dose: Not Given Labetalol HCl (Labetalol Hcl 100 Mg/20 Ml Vial) 10 mg IVPUSH Q3H PRN PRN Reason: SBP > 160 Last Admin: 09/24/23 22:54 Dose: 10 mg Nitroglycerin (Nitroglycerin 2 % Oint 1 Gm Packet) 1 inch TRANSDERMA RQ6H WHILE AWAKE [facility] Last Admin: 09/25/23 21:24 Dose: Not Given Sertraline HCl (Sertraline Hcl 50 Mg Tablet) 50 mg PO DAILY [facility] Last Admin: 09/25/23 13:33 Dose: 50 mg Sodium Chloride (0.9 % Sodium Chloride Flush 3 Ml Syringe) 3 ml IVFLUSH QSHIFT [facility] Last Admin: 09/26/23 01:03 Dose: Not Given Home Medications Medication Instructions Recorded Confirmed Last Taken Type carvedilol 25 mg tablet 25 mg PO DAILY 09/24/23 09/24/23 09/24/23 History losartan 100 mg tablet 100 mg PO QAM 09/24/23 09/24/23 09/24/23 History sertraline 50 mg tablet 50 mg PO QAM 09/24/23 09/24/23 09/24/23 History Physical Exam Vital Signs: Last Vital Signs Temp 97.9 F 09/26/23 07:22 Pulse 75 09/26/23 07:22 Resp 18 09/26/23 07:22 BP 169/74 H 09/26/23 07:22 Pulse Ox 100 09/26/23 07:22 O2 Del Method Room Air 09/26/23 07:22 BMI result Body Mass Index 21.1 Results Lab Results 09/26/23 05:49 09/26/23 05:49 Lab results: Chemistry 09/24/23 09/24/23 09/25/23 01:30 04:59 05:40 Sodium 141 142 140 Potassium 4.8 4.4 3.5 D Carbon Dioxide 25 23 25 BUN 16 17 H 22 H Creatinine 1.76 H 1.80 H 2.25 H Calcium 8.9 9.2 8.3 L D 09/26/23 05:49 Sodium 138 Potassium 3.7 Carbon Dioxide 26 BUN 28 H Creatinine 2.48 H Calcium 8.4 Hematology 09/24/23 09/24/23 09/25/23 01:30 04:59 05:40 WBC 5.3 6.2 5.3 Hgb 12.1 11.9 L 10.6 L Plt Count 200 203 185 09/26/23 05:49 WBC 5.3 Hgb 10.3 L Plt Count 164 Urinalysis 09/24/23 02:51 Urine Color Yellow Urine Appearance Clear Urine pH 7.5 Ur Specific [place] <= 1.005 Urine Protein Negative Urine Glucose (UA) Negative Urine Ketones Negative Urine Blood Negative Urine Nitrite Negative Ur Leukocyte Esterase Trace H Urine RBC 0-2 Urine WBC 0-5 Ur Squamous Epith Cells 0-2 Hyaline Casts 0-2 Procedures Date of Service Date of Service: 09/26/23
[2023-09-26] MEDS: Nitroglycerin 2 % Oint 1 GM Packet 1 INCH TRANSDERMA (09:35)
[2023-09-26] MEDS: 0.9 % Sodium Chloride Flush 3 ML SYRINGE IVFLUSH ×3 (09:35→20:07)
[2023-09-26] MEDS: amLODIPine Besylate 10 MG TABLET PO (09:36)
[2023-09-26] MEDS: carvediloL 25 MG TABLET PO (09:36)
[2023-09-26] MEDS: Sertraline HCL 50 MG TABLET PO (09:36)
[2023-09-26] MEDS: Heparin Sodium,Porcine 5,000 UNIT/ML VIAL 5000 UNIT SUBCUT ×2 (09:36→20:07)
[2023-09-26 11:17] VITALS: BP 113/58; PULSE 68; RESP 18; TEMP 36.6; O2SAT 97
--- NOTE | 2023-09-26 13:54 | HO.PM.IMPN ---
Subjective Subjective Date of Service: 09/26/23 Interval History: No acute issues overnight Review of Systems Denies chest pain Denies shortness of breath Denies nausea vomiting diarrhea Denies fever chills Physical Exam Vital Signs: Vital Signs: Last Vital Signs Temp 97.9 F 09/26/23 11:17 Pulse 68 09/26/23 11:17 Resp 18 09/26/23 11:17 BP 113/58 L 09/26/23 11:17 Pulse Ox 97 09/26/23 11:17 O2 Del Method Room Air 09/26/23 11:17 BMI result Body Mass Index 21.1 Const: Other: Awake alert no acute distress Resp: Other: Clear to auscultation bilaterally no rales rhonchi or wheezes Cardio: Other: No S4; positive S1-S2; no S3 murmurs rubs or gallops GI: Other: Soft nontender nondistended normoactive bowel sounds Extrem: Other: No edema bilaterally Objective Data Active Medications Acetaminophen (Acetaminophen 325 Mg Tablet) 650 mg PO Q6H PRN PRN Reason: Pain, Mild (Pain Scale 1-3) Amlodipine Besylate (Amlodipine Besylate 10 Mg Tablet) 10 mg PO DAILY [facility]; Protocol Last Admin: 09/26/23 09:36 Dose: 10 mg Documented By: SUE Carvedilol (Carvedilol 25 Mg Tablet) 25 mg PO DAILY [facility]; Protocol Last Admin: 09/26/23 09:36 Dose: 25 mg Documented By: SUE Heparin Sodium (Porcine) (Heparin Sodium,Porcine 5,000 Unit/Ml Vial) 5,000 unit SUBCUT Q12H [facility] Last Admin: 09/26/23 09:36 Dose: 5,000 unit Documented By: SUE Labetalol HCl (Labetalol Hcl 100 Mg/20 Ml Vial) 10 mg IVPUSH Q3H PRN PRN Reason: SBP > 160 Last Admin: 09/24/23 22:54 Dose: 10 mg Documented By: TYREE Nitroglycerin (Nitroglycerin 2 % Oint 1 Gm Packet) 1 inch TRANSDERMA RQ6H WHILE AWAKE [facility] Last Admin: 09/26/23 09:35 Dose: 1 inch Documented By: SUE Sertraline HCl (Sertraline Hcl 50 Mg Tablet) 50 mg PO DAILY [facility] Last Admin: 09/26/23 09:36 Dose: 50 mg Documented By: SUE Sodium Chloride (0.9 % Sodium Chloride Flush 3 Ml Syringe) 3 ml IVFLUSH QSHIFT [facility] Last Admin: 09/26/23 09:35 Dose: 3 ml Documented By: SUE Labs 09/26/23 05:49 09/26/23 05:49 Labs: Laboratory Results - last 24 hr 09/25/23 09/25/23 09/26/23 14:41 16:24 05:49 MCV 107.4 H MCH 36.3 H MCHC 33.8 RDW 14.1 Plt Count 164 MPV 11.5 Immature Gran % (Auto) 0.2 Neut % (Auto) 54.6 Lymph % (Auto) 23.7 [place] % (Auto) 16.7 H Eos % (Auto) 4.2 H Baso % (Auto) 0.6 Lymph # (Auto) 1.3 [place] # (Auto) 0.9 Eos # (Auto) 0.2 Baso # (Auto) 0.0 Abs Immat Gran (auto) 0.01 Absolute Neuts (auto) 2.9 Absolute Nucleated RBC 0.000 Nucleated RBC % (auto) 0.0 Anion Gap 14 Estim Creat Clear Calc 13.2 Estimated GFR 19 POC Glucose 141 H Fasting Glucose 98 Calcium 8.4 Total Bilirubin 0.5 AST 16 ALT 8 Alkaline Phosphatase 70 Total Protein 6.0 L Albumin 3.0 L Stool Occult Blood NEGATIVE Assessment and Plan (1) Syncope: Status: Acute (2) Hypertension: Status: Acute (3) Pulmonary edema: Status: Acute Plan Nataliya Forrest is a 78 years old woman presents after near syncopal episode 1. Near-syncope -continue to monitor on telemetry... No dysrhythmias noted -check carotid ultrasound/echo -EEG in a.m. -neuro consult 2. Uncontrolled hypertension with pulmonary edemaCKD -resume all outpatient therapies -adjust as indicated -renal consult appreciated -follow renals/divalents Heparin subcut Full code Requires ongoing hospitalization to achieve optimal blood pressure control to prevent recurrence of pulmonary edema. High risk of outpatient failure at this time Quality Stroke Does the patient have a stroke diagnosis?: No VTE Prior VTE?: No VTE Risk Level:: Medical - moderate - high VTE Device Contraindication: Treatment Not Indicated VTE Drug Contraindication: N/A - Med Ordered
[2023-09-26 15:27] VITALS: BP 95/51; PULSE 71; RESP 20; TEMP 36.8; O2SAT 98
[2023-09-26 19:25] VITALS: BP 115/52; PULSE 77; RESP 20; TEMP 36.6; O2SAT 98
[2023-09-27] VITALS: BP 131/62; PULSE 73; RESP 16; TEMP 36.9; O2SAT 97
[2023-09-27 03:09] VITALS: BP 129/60; PULSE 76; RESP 16; TEMP 36.8; O2SAT 100
[2023-09-27 07:46] VITALS: BP 141/64; PULSE 64; RESP 16; TEMP 36.2; O2SAT 98
[2023-09-27] MEDS: amLODIPine Besylate 10 MG TABLET PO (08:46)
[2023-09-27] MEDS: carvediloL 25 MG TABLET PO (08:46)
[2023-09-27] MEDS: Sertraline HCL 50 MG TABLET PO (08:46)
[2023-09-27] MEDS: Heparin Sodium,Porcine 5,000 UNIT/ML VIAL 5000 UNIT SUBCUT ×2 (08:47→20:42)
[2023-09-27] MEDS: 0.9 % Sodium Chloride Flush 3 ML SYRINGE IVFLUSH ×2 (08:47→15:25)
--- NOTE | 2023-09-27 11:04 | P.CNNE_ITS ---
History of Present Illness Data of Consult Service Date: 09/27/23 Primary Care Provider: North Perez MD [facility] Reason for consult: Fall 78 years old woman living with her came to hospital after she fell down at home in the middle of night. Details were unclear as both her and her suffered from cognitive difficulties. The have 2 children, 1 of them lived about an hour away and other 1 in [place]. I talked to the son who was local. There was no previous history of seizure disorder. She has been taking care of her and her cognitive issues have decline recently. She was unable to provide any meaningful history. Review of Systems 2 Review of Systems: No recent known cold or flu-like illness PMFSH Social History Social History Comment: Family in room most of the day Patient Tobacco Use Status: Never used Tobacco Smoked in Last 30 Days: No Use of substances other than those prescribed or required for medical reasons: No Currently Displaying Signs/Symptoms of Drug Intoxication Withdrawal: No Advance Directives: No Advance Directives Information Provided: Yes Nutrition Risks: No Nutritional Risk service: No Meds Allergies Allergy/AdvReac Type Severity Reaction Status Date / Time No Known Allergies Allergy Verified 09/24/23 00:48 Active Medications: Current Medications Acetaminophen (Acetaminophen 325 Mg Tablet) 650 mg PO Q6H PRN PRN Reason: Pain, Mild (Pain Scale 1-3) Amlodipine Besylate (Amlodipine Besylate 10 Mg Tablet) 10 mg PO DAILY [facility]; Protocol Last Admin: 09/27/23 08:46 Dose: 10 mg Carvedilol (Carvedilol 25 Mg Tablet) 25 mg PO DAILY [facility]; Protocol Last Admin: 09/27/23 08:46 Dose: 25 mg Heparin Sodium (Porcine) (Heparin Sodium,Porcine 5,000 Unit/Ml Vial) 5,000 unit SUBCUT Q12H [facility] Last Admin: 09/27/23 08:47 Dose: 5,000 unit Labetalol HCl (Labetalol Hcl 100 Mg/20 Ml Vial) 10 mg IVPUSH Q3H PRN PRN Reason: SBP > 160 Last Admin: 09/24/23 22:54 Dose: 10 mg Sertraline HCl (Sertraline Hcl 50 Mg Tablet) 50 mg PO DAILY [facility] Last Admin: 09/27/23 08:46 Dose: 50 mg Sodium Chloride (0.9 % Sodium Chloride Flush 3 Ml Syringe) 3 ml IVFLUSH QSHIFT [facility] Last Admin: 09/27/23 08:47 Dose: 3 ml Home Medications Medication Instructions Recorded Confirmed Last Taken Type carvedilol 25 mg tablet 25 mg PO DAILY 09/24/23 09/24/23 09/24/23 History losartan 100 mg tablet 100 mg PO QAM 09/24/23 09/24/23 09/24/23 History sertraline 50 mg tablet 50 mg PO QAM 09/24/23 09/24/23 09/24/23 History Physical Exam 2 Vital Signs: Vital Signs: Last Vital Signs Temp 97.2 F 09/27/23 07:46 Pulse 64 09/27/23 07:46 Resp 16 09/27/23 07:46 BP 141/64 H 09/27/23 07:46 Pulse Ox 98 09/27/23 07:46 O2 Del Method Room Air 09/27/23 07:46 BMI result Body Mass Index 21.1 Neuro: Other: Alert and awake looking around with relatively flat affect. Fluency and spontaneity of speech are somewhat diminished. She did not know where she was in what had happened. Face was symmetrical. Visual adams are full. Plantars were flexor. Speech was normal. 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 She was brought to hospital after she fell at home. Details were unclear. She was at risk for mechanical fall and seizure disorder. Sometime a common infection like UTI can also cause falling. I recommend ruling out common infections an EEG. I talked to her son and my advised was 2 find a place closer to his home for both parents as there were not be able to take care of themselves with cognitive difficulties. Procedures Date of Service Date of Service: 09/27/23
--- NOTE | 2023-09-27 11:14 | CONS_ITS ---
DATE OF SERVICE: 09/26/2023 REASON FOR CONSULTATION: I was asked to see the patient to assist in evaluation and management of the patient's acute kidney injury on chronic kidney disease reflected by BUN and creatinine today of 28 and 2.48, whereas her baseline creatinine is usually in the 1.5 to 2.0 range and on admission it was 1.76. HISTORY OF PRESENT ILLNESS: In summary, the patient is a 78-year-old female, who came to the emergency room after having a falling episode and hit the back of her head. The patient does not recall what happened and why she fell. In the emergency room, she was noted to be markedly hypertensive on admission. Her blood pressures have improved with restarting her medications. She has had increasing creatinine as noted, which may reflect that her blood pressure was too well controlled for a period of time. Presently, she is feeling better. PAST MEDICAL HISTORY: Includes stage 3 chronic kidney disease, baseline creatinine 1.5 to 1.8. The patient is a poor historian. Information obtained from electronic medical record. MEDICATIONS ON ADMISSION: It is not completely clear, which she is normally taking. Presently, she is on amlodipine 10 once a day, carvedilol 25 once a day, and she was getting Cozaar. It was also mentioned that she was on Lasix and lisinopril, but they have been discontinued. ALLERGIES: NOTED IN THE EHR. SOCIAL HISTORY: She is a nonsmoker, nondrinker. No illicit drug use. REVIEW OF SYSTEMS: Somewhat limited as the patient is a poor historian. PHYSICAL EXAMINATION: VITAL SIGNS: Blood pressure this morning is 169/74. In reviewing her blood pressures as mentioned when she first came in, she was markedly hypertensive with blood pressure of 220/100. Then she had blood pressures as low as 117/57 yesterday. HEENT: Head is atraumatic, normocephalic. NECK: Supple. Mucous membranes are moist. LUNGS: Breath sounds bilaterally clear. CARDIAC: Regular rate and rhythm without rub. ABDOMEN: Soft, nontender. Good bowel sounds. No CVA tenderness. EXTREMITIES: No edema. LABORATORY DATA: From today, sodium 138, potassium , chloride 102, bicarb 26, BUN 28, creatinine 2.48. Yesterday, BUN and creatinine of 22 and 2.25. As mentioned, admission creatinine was 1.76. Hemoglobin 10.3, hematocrit 30.5, white blood cell count 5.3. Urine was essentially negative by dipstick. She had a head CT on admission without contrast. IMPRESSION AND PLAN: THIS IS A 78-YEAR-OLD WITH ACUTE KIDNEY INJURY ON CHRONIC KIDNEY DISEASE IN THE SETTING OF SEVERE HYPERTENSION AND A FALLING EPISODE. 1. Acute kidney injury. Suspect that she has hemodynamically-mediated acute kidney injury from her severe hypertension on admission and then her blood pressure going lower on the blood pressure medications including the ARB. She certainly may have underlying renovascular disease and be intolerant to ARB or TERRANCE inhibitors and this could be playing a significant role for her bump in creatinine. Her urinalysis is bland, which would go against an acute GN or acute interstitial nephritis. Likewise, obstructive uropathy seems unlikely in a female, but would be in the differential. 2. Stage 3 chronic kidney disease. Baseline creatinine 1.5 to 1.8. Most likely, this is due to hypertensive nephrosclerosis. Renal artery stenosis with ischemic nephropathy would be in the differential as well. 3. Underlying myeloma given her anemia would be also in the differential; however, given her UA is completely negative, this would go against that. 4. Severe hypertension. Certainly, a concern for renovascular-mediated hypertension. Blood pressure control needs to be further adjusted with medication adjustments. At this point, I would avoid using an TERRANCE or an ARB. She is currently on Norvasc and Coreg. We may need to add additional blood pressure medications, but I would monitor blood pressures over the next 24 hours and then see about adding additional blood pressure medications, but avoiding TERRANCE or ARBs. RECOMMENDATIONS: At this time include continue to monitor blood pressures. Avoid TERRANCE and ARBs. Obtain a Doppler of the renal arteries to rule out renal artery stenosis. Avoid NSAIDs. We will follow the patient closely with the team. MD JOSE Holder/KEEGAN / [phone]
[2023-09-27 11:59] VITALS: BP 148/65; PULSE 67; RESP 16; TEMP 36.4; O2SAT 98
[2023-09-27 12:11] LABS: MANUAL DIFF FLAG NO
[2023-09-27 12:14] LABS: Basophils Percent Auto 0.4 % (0-2); Eosinophils Absolute Auto 0.1 X10*3/uL (0.0-0.4); Eosinophils Percent Auto 3.1 % (0-4); Hematocrit 32.7 % (37.0-47.0); Hemoglobin 11.1 g/dl (12.0-16.0); Imm Gran Abs Auto 0.01 X10*3/uL (0.00-0.03); Imm Gran Pct Auto 0.2 % (0.0-0.4); Lymphocytes Absolute Auto 1.1 X10*3/uL (1.2-4.9); Lymphocytes Percent Auto 23.3 % (20-40); Mean Corpuscular HGB Conc 33.9 g/dl (31.0-35.0); Mean Corpuscular Hemoglobin 36.3 pg (27.0-33.0); Mean Corpuscular Volume 106.9 fL (80.0-98.0); Mean Platelet Volume 11.3 fL (9.4-12.3); Monocytes Absolute Auto 0.8 X10*3/uL (0.1-1.2); Monocytes Percent Auto 17.8 % (2-11); Neutrophils Absolute Auto 2.5 x10*3/uL (2.0-8.3); Neutrophils Percent Auto 55.2 % (45-73); Platelet Count 158 X10*3/uL (160-400); Red Blood Count 3.06 X10*6/uL (4.20-5.50); White Blood Count 4.5 X10*3/uL (4.8-10.8)
[2023-09-27] MEDS: Acetaminophen 325 MG TABLET 650 MG PO (12:17)
[2023-09-27 12:32] LABS: Alanine Aminotransferase 12 U/L (0-31); Albumin Level 3.2 g/dL (3.5-5.0); Alkaline Phosphatase 65 U/L (39-117); Anion Gap 16 (12-20); Aspartate Amino Transferase 25 U/L (5-31); Bilirubin Total 0.4 mg/dL (0.0-1.0); Blood Urea Nitrogen 39 mg/dL (9-16); Calcium 8.4 mg/dL (8.4-10.2); Carbon Dioxide 24 mmol/L (22-29); Chloride 103 mmol/L (96-108); Creatinine Clr Calc Pharmacy 13.9; Estimated Glomerular Filt Rate 20; Glucose Fasting 91 mg/dL (60-99); Sodium 139 mmol/L (135-145); Total Protein 6.5 g/dL (6.5-8.0)
--- NOTE | 2023-09-27 14:20 | P.PNIM_ITS ---
Subjective Subjective Date of Service: 09/27/23 Interval History: no further episodes of syncope neck pain, unable to perform EEG Review of Systems Review of Systems: Yes all other systems are reviewed and are negative Physical Exam 2 Vital Signs: Vital Signs: Last Vital Signs Temp 97.5 F 09/27/23 11:59 Pulse 67 09/27/23 11:59 Resp 16 09/27/23 11:59 BP 148/65 H 09/27/23 11:59 Pulse Ox 98 09/27/23 11:59 O2 Del Method Room Air 09/27/23 11:59 BMI result Body Mass Index 21.1 Gen: in no acute distress HEENT: sclera anicteric, moist mucus membranes Neck: supple Lungs: clear to auscultation bilaterally Heart: regular rate and rhythm, no murmurs Abd: soft, non-tender, non-distended Ext: no edema Skin: warm/well-perfused Neuro: alert and oriented to person and place, no focal weakness Psych: appropriate affect Objective Data Active Medications Acetaminophen (Acetaminophen 325 Mg Tablet) 650 mg PO Q6H PRN PRN Reason: Pain, Mild (Pain Scale 1-3) Last Admin: 09/27/23 12:17 Dose: 650 mg Documented By: ELIZA Amlodipine Besylate (Amlodipine Besylate 10 Mg Tablet) 10 mg PO DAILY [facility]; Protocol Last Admin: 09/27/23 08:46 Dose: 10 mg Documented By: ELIZA Carvedilol (Carvedilol 25 Mg Tablet) 25 mg PO DAILY [facility]; Protocol Last Admin: 09/27/23 08:46 Dose: 25 mg Documented By: ELIZA Heparin Sodium (Porcine) (Heparin Sodium,Porcine 5,000 Unit/Ml Vial) 5,000 unit SUBCUT Q12H [facility] Last Admin: 09/27/23 08:47 Dose: 5,000 unit Documented By: ELIZA Labetalol HCl (Labetalol Hcl 100 Mg/20 Ml Vial) 10 mg IVPUSH Q3H PRN PRN Reason: SBP > 160 Last Admin: 09/24/23 22:54 Dose: 10 mg Documented By: TYREE Sertraline HCl (Sertraline Hcl 50 Mg Tablet) 50 mg PO DAILY [facility] Last Admin: 09/27/23 08:46 Dose: 50 mg Documented By: ELIZA Sodium Chloride (0.9 % Sodium Chloride Flush 3 Ml Syringe) 3 ml IVFLUSH QSHIFT [facility] Last Admin: 09/27/23 08:47 Dose: 3 ml Documented By: ELIZA Labs 09/27/23 12:05 09/27/23 12:05 Labs: Laboratory Results - last 24 hr 09/27/23 12:05 MCV 106.9 H MCH 36.3 H MCHC 33.9 RDW 14.0 Plt Count 158 L MPV 11.3 Immature Gran % (Auto) 0.2 Neut % (Auto) 55.2 Lymph % (Auto) 23.3 [place] % (Auto) 17.8 H Eos % (Auto) 3.1 Baso % (Auto) 0.4 Lymph # (Auto) 1.1 L [place] # (Auto) 0.8 Eos # (Auto) 0.1 Baso # (Auto) 0.0 Abs Immat Gran (auto) 0.01 Absolute Neuts (auto) 2.5 Absolute Nucleated RBC 0.000 Nucleated RBC % (auto) 0.0 Anion Gap 16 Estim Creat Clear Calc 13.9 Estimated GFR 20 Fasting Glucose 91 Calcium 8.4 Total Bilirubin 0.4 AST 25 ALT 12 Alkaline Phosphatase 65 Total Protein 6.5 Albumin 3.2 L ITS Impressions Chest X-Ray 09/24/23 01:10 IMPRESSION: Pulmonary vascular congestion and diffuse increased markings. Consider developing fluid overload or congestive heart failure with early edema. There appear to be small bilateral pleural effusions. Cervical Spine CT 09/24/23 01:21 IMPRESSION: No acute intracranial hemorrhage. Soft tissue swelling/hematoma along the right posterior calvarium. No underlying depressed calvarial fracture. No acute, displaced cervical spine fracture. Head CT 09/24/23 01:21 IMPRESSION: No acute intracranial hemorrhage. Soft tissue swelling/hematoma along the right posterior calvarium. No underlying depressed calvarial fracture. No acute, displaced cervical spine fracture. Renal Ultrasound 09/26/23 08:35 IMPRESSION: 1. No echogenic renal calculi or hydronephrosis. 2. Complex cyst midpole right kidney. 3. Normal Doppler imaging right kidney. 4. The left kidney has been surgically removed. Renal Ultrasound 09/26/23 08:35 IMPRESSION: 1. No echogenic renal calculi or hydronephrosis. 2. Complex cyst midpole right kidney. 3. Normal Doppler imaging right kidney. 4. The left kidney has been surgically removed. Carotid Doppler Study 09/26/23 14:20 IMPRESSION: 1. RIGHT: No hemodynamically significant stenosis in right carotid artery. 2. LEFT: 0-49% range stenosis in left proximal ICA and bulb region. 3. Normal antegrade flow seen in both vertebral arteries. Assessment and Plan (1) Syncope: Status: Acute (2) Hypertension: Status: Acute (3) Pulmonary edema: Status: Acute Plan d4 78yo F with HTN + CKD3 + solitary kidney s/p nephrectomy for RCC who sustained fall and hit the back of her head, admitted for workup of presyncope and sustained a witnessed synpocal episode. Found to have markedly elevated HTN presyncope/syncope - Neuro consult, TTE uncontrolled HTN - continue carvedilol, replaced losartan with amlodipine JANEY/CKD3 - Cr appears to be improving with BP control. Losartan discontinued. Renal doppler in remaining kidney normal. elevated TSH - check LT4 folate deficiency - replete folate VTE ppx - UFH dispo - PT consult In my clinical judgment, the patient requires continued inpatient hospitalization for the following reasons: syncope workup Quality Stroke Does the patient have a stroke diagnosis?: No VTE Prior VTE?: No VTE Risk Level:: Medical - moderate - high VTE Device Contraindication: Treatment Not Indicated VTE Drug Contraindication: N/A - Med Ordered
[2023-09-27] MEDS: Folic Acid 1 MG TABLET PO (15:11)
[2023-09-27 15:12] LABS: Free T4 (Free Thyroxine) 1.02 ng/dL (0.71-1.85)
[2023-09-27] MEDS: 0.9 % Sodium Chloride 1,000 ML 100 ML IVCONT (15:25)
[2023-09-27 15:40] VITALS: BP 121/59; PULSE 66; RESP 16; TEMP 36.4; O2SAT 98
--- NOTE | 2023-09-27 17:58 | P.PNNP_ITS ---
Subjective Subjective Date of Service: 09/27/23 Interval history: Seen and examined, events noted Orhtostaic today SON at bedside Physical Exam 2 Vital Signs: Vital Signs: Last Vital Signs Temp 97.6 F 09/27/23 15:40 Pulse 66 09/27/23 15:40 Resp 16 09/27/23 15:40 BP 121/59 L 09/27/23 15:40 Pulse Ox 98 09/27/23 15:40 O2 Del Method Room Air 09/27/23 15:40 BMI result Body Mass Index 21.1 Const: Other: Awake alert no acute distress Resp: Other: Clear to auscultation bilaterally no rales rhonchi or wheezes Cardio: Other: No S4; positive S1-S2; no S3 murmurs rubs or gallops GI: Other: Soft nontender nondistended normoactive bowel sounds Neuro: Other: Alert and awake looking around with relatively flat affect. Fluency and spontaneity of speech are somewhat diminished. She did not know where she was in what had happened. Face was symmetrical. Visual adams are full. Plantars were flexor. Speech was normal. Extrem: Other: No edema bilaterally Objective Data Labs 09/27/23 12:05 09/27/23 12:05 Labs: Laboratory Results - last 24 hr 09/27/23 12:05 WBC 4.5 L RBC 3.06 L Hgb 11.1 L Hct 32.7 L MCV 106.9 H MCH 36.3 H MCHC 33.9 RDW 14.0 Plt Count 158 L MPV 11.3 Immature Gran % (Auto) 0.2 Neut % (Auto) 55.2 Lymph % (Auto) 23.3 [place] % (Auto) 17.8 H Eos % (Auto) 3.1 Baso % (Auto) 0.4 Lymph # (Auto) 1.1 L [place] # (Auto) 0.8 Eos # (Auto) 0.1 Baso # (Auto) 0.0 Abs Immat Gran (auto) 0.01 Absolute Neuts (auto) 2.5 Absolute Nucleated RBC 0.000 Nucleated RBC % (auto) 0.0 Sodium 139 Potassium 4.0 Chloride 103 Carbon Dioxide 24 Anion Gap 16 BUN 39 H Creatinine 2.34 H Estim Creat Clear Calc 13.9 Estimated GFR 20 Fasting Glucose 91 Calcium 8.4 Total Bilirubin 0.4 AST 25 ALT 12 Alkaline Phosphatase 65 Total Protein 6.5 Albumin 3.2 L Free T4 1.02 Procedures Date of Service Date of Service: 09/27/23 Assessment & Plan Assessment and plan (1) Syncope: Status: Acute (2) Hypertension: Status: Acute (3) Pulmonary edema: Status: Acute Plan 78yo F adm with syncope and severe HTN and developed JANEY on CKD in PT with shavon salgado 1. JANEY: c/w renal hypoperfsuiion with over medicated and ARB effect 2. CKD 3: siolitary kidney and most likely signif HTN renal dis Doppler neg for CLEMENTE 3. Syncope: suspect orthostatiic Hypotension playing signif role; Neuro eval for other causes REC: avoid TERRANCE/ARB; decr BP meds; check orhtostatic BPs; track renal func; need PT/OT to deal with [place] Time Spent With Patient Time: Total time managing care of this patient today ____ minutes. Progress Note: Quality Stroke Does the patient have a stroke diagnosis?: No
[2023-09-27 20:00] VITALS: BP 139/61; PULSE 67; RESP 18; TEMP 36.2; O2SAT 100
[2023-09-28] VITALS (10 sets, daily range): BP systolic 103–139; BP diastolic 50–70; PULSE 61–79; RESP 18–20; TEMP 36.1–36.4; O2SAT 97–100
[2023-09-28] MEDS: 0.9 % Sodium Chloride 1,000 ML 100 ML IVCONT ×2 (02:41→11:17)
--- NOTE | 2023-09-28 07:00 | CA_ITS ---
Transthoracic Echocardiogram Patient (Last, First, Middle): Nataliya Forrest, Gender: Female Date of : 1945 Age: 78 Procedure Date: 09/28/2023 Procedure Type: Transthoracic Echocardiogram [place] [facility] [place]: 152. cm Weight: 48.54 kg BSA: 1.43 m2 Heart Rate: 62 bpm BP: 129 / 60 mmHg Lathe Operator Contact Lens: TIFFANY Referring MD: Clarence Lam DO Symptoms: syncope Study Quality: Adequate ECG Rhythm: Sinus Conclusions: - Normal left ventricular size, thickness, systolic function, and wall motion. The visually estimated ejection fraction is between 55-60%. Abnormal diastolic function is noted. Spectral Doppler is indicative of an impaired relaxation filling pattern. Elevated filling pressures. GLS -18%. - Normal right ventricular cavity size and systolic function. - The left atrium is normal in size. The right atrium is moderately dilated. Findings Left Ventricle Normal left ventricular size, thickness, systolic function, and wall motion. The visually estimated ejection fraction is between 55-60%. Abnormal diastolic function is noted. Spectral Doppler is indicative of an impaired relaxation filling pattern. Elevated filling pressures. GLS -18%. Right Ventricle Normal right ventricular cavity size and systolic function. Atria The left atrium is normal in size. The right atrium is moderately dilated. Aortic Valve There is a normal trileaflet aortic valve. There is no aortic valve stenosis. There is trace (trivial) aortic valve regurgitation. Mitral Valve There is mild mitral annular calcification. There is no mitral valve regurgitation. There is no mitral valve stenosis. Pulmonic Valve The pulmonic valve is likely normal. Tricuspid Valve Normal tricuspid valve structure. There is no tricuspid valve regurgitation. Normal right atrial pressure. There is no evidence of pulmonary hypertension. Great Vessels All visible segments of the aorta are normal in size. Venous The inferior vena cava is normal in size and collapses greater than 50% with inspiration. Pericardium/Pleural There is no evidence of pericardial effusion. Prior Study Comparison No prior study available for comparison. Measurements 2D Linear Measurements IVSd: 0.95 0.6-0.9/0.6-1.0 cm LVIDd: 3.94 3.9-5.3/4.2-5.9 cm LVIDd Index: 2.76 2.4-3.2/2.2-3.1 cm/m2 LVIDs: 2.79 2.0-3.6 cm LVPWd: 1.05 0.7-1.1 cm LA Diam: 2.60 2.7-3.8/3.0-4.0 cm LAIDs Index: 1.82 1.5-2.3 cm/m2 LV Mass: 154.14 67-162/88-224 g LV Mass Index: 107.79 43-95/49-115 g/m2 LVOT Diam: 1.80 3.0+(-)1.3 cm 2D Systolic Function EF 4C: 68.20 >55% EF 2C: 68.00 >55% EF BiP: 65.70 >55% Mitral Valve MV Pk E: 0.92 MV PK A: 0.94 MV Decel Time: 310.00 E/A: 1.00 E'Lateral: 5.98 E'Medial: 5.00 E/E' Med: 18.50 E/E' Lat: 15.50 PHT: 91.00 MVA PHT: 2.42 Decel [place]: 2.98 Aortic Valve AoV Pk Vlad: 1.93 AoV Mn Vlad: 1.50 AoV VTI: 0.43 AoV Pk Grad: 15.00 Aov Mn Grad: 10.00 CHER Cont.VTI: 1.48 LVOT LVOT Pk Vlad: 1.14 LVOT Mn Vlad: 0.80 LVOT VTI: 0.25 LVOT Pk Grad: 5.00 LVOT Mn Grad: 3.00 LVOT Diam: 1.80 LVOT Area: 2.54 Diastolic Function MV Pk E: 0.92 MV Pk A: 0.94 E/A: 1.00 E'Medial: 5.00 E/E' Med: 18.50 E' Laterial: 5.98 E/E' Lat: 15.50 Right Ventricle TAPSE (mm): 17.20 TVS' Vlad: 14.70 Tricuspid Valve TR Pk Vlad: 2.35 TR Pk Grad: 22.00 RA Press: 3.00 RVSP: 25.00 Great Vessels Aorta Sinus of Valsalva: 2.90 2.0-3.5 cm Ao Asc: 2.90 2.1-3.4 cm Pulmonary Valve PV Pk Vlad: 1.19 Peak PV Grad: 6.00 Updated in Other Vendor System with Status of Final Moses Crowder MD electronically signed on 09/28/2023 11:10:28 AM with status of Final
[2023-09-28] MEDS: amLODIPine Besylate 5 MG TABLET PO (08:46)
[2023-09-28] MEDS: Heparin Sodium,Porcine 5,000 UNIT/ML VIAL 5000 UNIT SUBCUT (08:46)
[2023-09-28] MEDS: carvediloL 25 MG TABLET PO (08:46)
[2023-09-28] MEDS: Folic Acid 1 MG TABLET PO (08:46)
[2023-09-28] MEDS: 0.9 % Sodium Chloride Flush 3 ML SYRINGE IVFLUSH ×2 (08:46→23:55)
[2023-09-28] MEDS: Sertraline HCL 50 MG TABLET PO (08:46)
[2023-09-28 09:05] LABS: Anion Gap 11 (12-20); Blood Urea Nitrogen 34 mg/dL (9-16); Calcium 7.9 mg/dL (8.4-10.2); Carbon Dioxide 23 mmol/L (22-29); Chloride 111 mmol/L (96-108); Estimated Glomerular Filt Rate 29; Glucose Random 87 mg/dL (60-115); Potassium 3.5 mmol/L (3.3-5.1); Sodium 141 mmol/L (135-145)
--- NOTE | 2023-09-28 13:11 | MHC.CM.PN ---
EMR REVIEWED, PER HOSPITALIST PT REMAINS ORTHOSTATIC, P.T. RECOMMENDING STR HOWEVER UNSURE HOW WELL PT WOULD DO PT HAS DEMENTIA AND ACCORDING TO SON AKOSUA HAS BEEN WORSE SINCE SHE CAME IN TO THE HOSPITAL REPORTING TO SON/CM THAT SHE IS IN [place], PER SON AKOSUA THEY HAVE HIRED A HH AGENCY FOR PT AND PT'S AND PT'S OTHER SON IN [facility] IS COMING AND THEY WILL BOTH BE STAYING W/PT & WHILE THEY LOOK FOR AN [facility] NEAR [place] IN [place]. CM HAD INITIALLY CALLED SON TO LET HIM KNOW PT WOULD BE CLEARED FOR DC HOWEVER THAT WAS PRIOR TO ORTHO'S BEING REPEATED, CM ATTEMPTED TO CONTACT AKOSUA AT [phone] AND PT'S DIL GAVE CM AKOSUA'S CELL PHONE [phone], DETAILED MESSAGE LEFT.
--- NOTE | 2023-09-28 13:47 | P.PNIM_ITS ---
Subjective Subjective Date of Service: 09/28/23 Interval History: still orthostatic though improved; BP dropped to 103/50 standing and pt became dizzy Review of Systems Review of Systems: Yes all other systems are reviewed and are negative Physical Exam 2 Vital Signs: Vital Signs: Last Vital Signs Temp 97.6 F 09/28/23 11:39 Pulse 65 09/28/23 12:14 Resp 18 09/28/23 11:39 BP 130/64 09/28/23 12:14 Pulse Ox 97 09/28/23 12:14 O2 Del Method Room Air 09/28/23 11:39 BMI result Body Mass Index 21.1 Gen: in no acute distress HEENT: sclera anicteric, moist mucus membranes Neck: supple Lungs: clear to auscultation bilaterally Heart: regular rate and rhythm, no murmurs Abd: soft, non-tender, non-distended Ext: no edema Skin: warm/well-perfused Neuro: alert and oriented to person and place, no focal weakness Psych: appropriate affect Objective Data Active Medications Acetaminophen (Acetaminophen 325 Mg Tablet) 650 mg PO Q6H PRN PRN Reason: Pain, Mild (Pain Scale 1-3) Last Admin: 09/27/23 12:17 Dose: 650 mg Documented By: ELIZA Amlodipine Besylate (Amlodipine Besylate 5 Mg Tablet) 5 mg PO DAILY [facility]; Protocol Last Admin: 09/28/23 08:46 Dose: 5 mg Documented By: SAL Carvedilol (Carvedilol 25 Mg Tablet) 25 mg PO DAILY [facility]; Protocol Last Admin: 09/28/23 08:46 Dose: 25 mg Documented By: SAL Folic Acid (Folic Acid 1 Mg Tablet) 1 mg PO DAILY [facility] Last Admin: 09/28/23 08:46 Dose: 1 mg Documented By: SAL Heparin Sodium (Porcine) (Heparin Sodium,Porcine 5,000 Unit/Ml Vial) 5,000 unit SUBCUT Q12H [facility] Last Admin: 09/28/23 08:46 Dose: 5,000 unit Documented By: SAL Sodium Chloride (Ns) 1,000 mls @ 100 mls/hr IVCONT .Q10H [facility] Last Admin: 09/28/23 11:17 Dose: 100 mls/hr Documented By: SAL Labetalol HCl (Labetalol Hcl 100 Mg/20 Ml Vial) 10 mg IVPUSH Q3H PRN PRN Reason: SBP > 160 Last Admin: 09/24/23 22:54 Dose: 10 mg Documented By: TYREE Sertraline HCl (Sertraline Hcl 50 Mg Tablet) 50 mg PO DAILY [facility] Last Admin: 09/28/23 08:46 Dose: 50 mg Documented By: SAL Sodium Chloride (0.9 % Sodium Chloride Flush 3 Ml Syringe) 3 ml IVFLUSH QSHIFT [facility] Last Admin: 09/28/23 08:46 Dose: 3 ml Documented By: SAL Labs 09/27/23 12:05 09/28/23 08:21 Labs: Laboratory Results - last 24 hr 09/27/23 09/28/23 12:05 08:21 Hold Purple Top SEE NOTE Anion Gap 11 L Estim Creat Clear Calc 19.0 Estimated GFR 29 Random Glucose 87 Calcium 7.9 L Free T4 1.02 TTE 09/28/23 - Normal left ventricular size, thickness, systolic function, and wall motion. The visually estimated ejection fraction is between 55-60%. Abnormal diastolic function is noted. Spectral Doppler is indicative of an impaired relaxation filling pattern. Elevated filling pressures. GLS -18%. - Normal right ventricular cavity size and systolic function. - The left atrium is normal in size. The right atrium is moderately dilated. Assessment and Plan (1) Syncope: Status: Acute (2) Hypertension: Status: Acute (3) Pulmonary edema: Status: Acute Plan d5 78yo F with HTN + CKD3 + solitary kidney s/p nephrectomy for RCC who sustained fall and hit the back of her head, admitted for workup of presyncope and sustained a witnessed synpocal episode. Found to have markedly elevated HTN presyncope/syncope orthostatic hypotension - will continue IV NS; decreased amlodipine dose; recheck orthostatics in AM. uncontrolled HTN - continue carvedilol, replaced losartan with amlodipine and decrease dose of amlodipine. Will have to tolerate higher BP due to risk of fall from orthostasis. JANEY/CKD3 - Cr continues to improve with BP control. Losartan discontinued. Renal doppler in remaining kidney normal. elevated TSH - LT4 normal; recheck TSH in 6 wk folate deficiency - repleting folate VTE ppx - UFH dispo - PT consulted. STR recommended but family prefers to care for her at home. In my clinical judgment, the patient requires continued inpatient hospitalization for the following reasons: still orthostatic Quality Stroke Does the patient have a stroke diagnosis?: No VTE Prior VTE?: No VTE Risk Level:: Medical - moderate - high VTE Device Contraindication: Treatment Not Indicated VTE Drug Contraindication: N/A - Med Ordered
[2023-09-29 03:30] VITALS: BP 143/68; PULSE 78; RESP 20; TEMP 36.1; O2SAT 99
[2023-09-29 07:37] VITALS: BP 179/75; PULSE 68; RESP 20; TEMP 36.3; O2SAT 99
[2023-09-29 07:50] LABS: Anion Gap 10 (12-20); Blood Urea Nitrogen 41 mg/dL (9-16); Calcium 8.3 mg/dL (8.4-10.2); Carbon Dioxide 22 mmol/L (22-29); Chloride 112 mmol/L (96-108); Creatinine Clr Calc Pharmacy 19.1; Estimated Glomerular Filt Rate 29; Glucose Random 82 mg/dL (60-115); Sodium 140 mmol/L (135-145)
[2023-09-29] MEDS: 0.9 % Sodium Chloride Flush 3 ML SYRINGE IVFLUSH (08:33)
[2023-09-29] MEDS: amLODIPine Besylate 5 MG TABLET PO (08:33)
[2023-09-29] MEDS: Sertraline HCL 50 MG TABLET PO (08:33)
[2023-09-29] MEDS: carvediloL 25 MG TABLET PO (08:33)
[2023-09-29] MEDS: Folic Acid 1 MG TABLET PO (08:33)
[2023-09-29] MEDS: Acetaminophen 325 MG TABLET 650 MG PO (08:33)
--- NOTE | 2023-09-29 10:24 | MHC.CM.PN ---
IMM 09/29. Pt is medically cleared for D/C home with new [facility] and family support. Pts son Clarence will transport her home.
[2023-09-29 11:02] VITALS: BP 120/57; PULSE 62
[2023-09-29 11:03] VITALS: BP 107/51; BP 108/61; PULSE 68; PULSE 70
--- NOTE | 2023-09-29 11:40 | P.PNNP_ITS ---
Subjective Subjective Date of Service: 09/29/23 Interval history: seen and examined no complaints Physical Exam 2 Vital Signs: Vital Signs: Last Vital Signs Temp 97.4 F 09/29/23 07:37 Pulse 70 09/29/23 11:03 Resp 20 09/29/23 07:37 BP 107/51 L 09/29/23 11:03 Pulse Ox 99 09/29/23 07:37 O2 Del Method Room Air 09/29/23 07:37 BMI result Body Mass Index 21.1 Const: General: alert and awake HEENT: Head: Yes normocephalic and Yes atraumatic Neck: Neck: Yes supple Resp: Auscultation: diminished lung sounds Cardio: Heart sounds: S1 normal heart sound present and S2 normal heart sound present GI: Palpation (GI): Soft to palpation and nontender Extrem: General: Yes no pedal edema Objective Data Labs 09/27/23 12:05 09/29/23 07:14 Labs: Laboratory Results - last 24 hr 09/29/23 07:14 Hold Purple Top SEE NOTE Sodium 140 Potassium 4.0 Chloride 112 H Carbon Dioxide 22 Anion Gap 10 L BUN 41 H Creatinine 1.71 H Estim Creat Clear Calc 19.1 Estimated GFR 29 Random Glucose 82 Calcium 8.3 L Procedures Date of Service Date of Service: 09/29/23 Assessment & Plan Assessment and plan (1) JANEY (acute kidney injury): Status: Acute (2) CKD (chronic kidney disease) stage 3, GFR 30-59 ml/min: Status: Acute Plan Scr stable JANEY due to renal hypoperfusion known solitary kidney s/p nephrectomy for RCC h/o CKD follow with Dr Blackmon Doppler negative for renovascular disease LVEF 55% REC avoid ACEi and ARB follow kidney function and electrolytes Time Spent With Patient Time: Total time managing care of this patient today ____ minutes. Progress Note: Quality Stroke Does the patient have a stroke diagnosis?: No
--- NOTE | 2023-09-29 12:30 | W.MHC.F2F ---
Service Date Service Date: 09/29/23 Encounter Date of encounter: 09/29/23 Encounter: Impaired Cognition, Impaired Gait Pattern, Impaired Safety ,Impaired Standing Balance, Impaired Transfer Ability,Muscle Weakness,Pain, Postural Asymmetry Reasons for Services Signs and symptoms assessed: Orthostasis Reason for shelter: medication management, medication treatment, teach disease management and other (BP monitoring) Reason for physical therapy: home safety and mobility, therapeutic exercises, gait/transfer training, assess need for DME, ADL training and energy conservation MD Overseeing Care: Kevan Agn Homebound: Leaving the home is medically contraindicated at this time without the asist of a device and/or another person due th the listed conditions above and below. Reason homebound: unsteady gait / fall risk Homebound supporting statement: Transfer Training,Gait Training, Therapeutic Activities, Therapeutic Exercise, Patient Education, Safety,Balance Certification: Based on the above findings, I certify that this patient is confined to the home and needs intermittent shelter care, physical therapy and/or speech therapy, or continues to need occupational therapy. The patient is under my care, and I have initiated the establishment of the plan of care. The patient will be followed by a physician who will periodically review the plan of care. Time Spent With Patient Time: Total time managing care of this patient today ____ minutes.
--- NOTE | 2023-09-29 12:45 | P.DS_ITS ---
DS: Providers Provider Date of Service: 09/29/23 Date of admission: 09/24/23 09:31 Date of discharge: 09/29/23 Primary care physician: Kevan Ang MD Consults: 09/26/23 07:37 Consult to Nephrology Routine Consulting Provider: Villa Pack Reason for consultation: JANYE Has provider been notified: Yes 09/27/23 08:50 Consult to Neurology Routine Consulting Provider: [facility] Reason for consultation: syncop DS: Diagnosis Discharge Diagnosis (1) JANEY (acute kidney injury): Status: Acute (2) CKD (chronic kidney disease) stage 3, GFR 30-59 ml/min: Status: Acute (3) Syncope: Status: Acute (4) Orthostatic hypotension: Status: Acute (5) Folate deficiency anemia: Status: Acute DS: Summary Hospital Course Hospital Course: from H+P by hospitalist Jocelyn Newman, 09/24/23: Nataliya Forrest is a 78 years old woman who was brought to the ED via EMS after she sustained a fall and hit the posterior aspect of her head. The patient does not have any recollection of what happened and was unable to provide a precise HPI. Even her who was at bedside was not contributing much to the HPI. She does not recall the name of her medication or her past medical history. She thinks that she uses a medication for high blood pressure. She told me multiple occasions that she is always in good health and that she has been always healthy one . At the moment, she only complains of headache related to the head trauma. She denied dizziness, shortness on breath at rest or exertion, chest pain, palpitations, focal weakness, cough, fever or chills. She denies edema to lower extremities. She did not complain of any abdominal pain, nausea, vomiting or diarrhea. In the ED, she was found to have significant systolic hypertension. The rest of the vital signs are normal. Her oxygen saturation is 99% on room air. Blood workup showed no leukocytosis. MCV is elevated. There are no electrolyte imbalances. Creatinine is 1.76. BNP is elevated, 677. LFTs are normal. Head and c-spine CT scans are unremarkable. CXR showed pulmonary vascular congestion and diffuse increased marking (fluid overload or CHF with early edema). ED tx: Amlodipine 5 mg p.o., Lasix 40 mg IV, nitro ointment 0.5 in transdermal, acetaminophen 975 mg PO. 78yo F with HTN + CKD3 + solitary kidney s/p nephrectomy for RCC who sustained fall after a suspected syncopal episode and hit the back of her head. Found to have markedly elevated HTN on presentation and developed creatinine elevation above baseline. She was admitted to the hospitalist service on telemetry and had another witnessed syncopal episode. Ultimately workup revealed orthostatic hypotension. She was given IV fluid hydration with resolution of orthostasis. Losartan was also replaced with amlodipine and the dose of amlodpine was decreased. BP goal in her was liberalized to around 150/80 given her orthostasis. Creatinine returned to baseline with losartan discontinuation. Renal doppler in her remaining kidney was normal. She was found to have folate deficiency and was started on repletion. TSH was high with normal free T4; TFTs should be rechecked in 1 month. Given fall risk from orthostasis, placement in short-term rehabilitation was recommended but she declined. She was discharged home to the care of her son, who will arrange in-home care. VNA services were arranged. She should have Nephrology and Primary Care follow-up in 1-2 weeks. Time Attestation Discharge coordination time: Greater than 30 minutes Quality: Safe Use of Opioids Does Pt have an Active Cancer Diagnosis on the Problem List?: No Quality: Stroke Does the patient have a stroke diagnosis?: No Physical Exam Vital Signs: Vital Signs: Last Vital Signs Temp 97.4 F 09/29/23 07:37 Pulse 70 09/29/23 11:03 Resp 20 09/29/23 07:37 BP 107/51 L 09/29/23 11:03 Pulse Ox 99 09/29/23 07:37 O2 Del Method Room Air 09/29/23 07:37 BMI result Body Mass Index 21.1 Gen: in no acute distress HEENT: sclera anicteric, moist mucus membranes Neck: supple Lungs: clear to auscultation bilaterally Heart: regular rate and rhythm, no murmurs Abd: soft, non-tender, non-distended Ext: no edema Skin: warm/well-perfused Neuro: alert and oriented to person and place, no focal weakness Psych: appropriate affect DS: Data Data Completed and Pending Completed studies during hospitalization [Text1]: Laboratory Results WBC 4.5 X10*3/uL (4.8-10.8) L 09/27/23 12:05 RBC 3.06 X10*6/uL (4.20-5.50) L 09/27/23 12:05 Hgb 11.1 g/dl (12.0-16.0) L 09/27/23 12:05 Hct 32.7 % (37.0-47.0) L 09/27/23 12:05 MCV 106.9 fL (80.0-98.0) H 09/27/23 12:05 MCH 36.3 pg (27.0-33.0) H 09/27/23 12:05 MCHC 33.9 g/dl (31.0-35.0) 09/27/23 12:05 RDW 14.0 % (11.0-16.0) 09/27/23 12:05 Plt Count 158 X10*3/uL (160-400) L 09/27/23 12:05 MPV 11.3 fL (9.4-12.3) 09/27/23 12:05 Immature Gran % (Auto) 0.2 % (0.0-0.4) 09/27/23 12:05 Neut % (Auto) 55.2 % (45-73) 09/27/23 12:05 Lymph % (Auto) 23.3 % (20-40) 09/27/23 12:05 [place] % (Auto) 17.8 % (2-11) H 09/27/23 12:05 Eos % (Auto) 3.1 % (0-4) 09/27/23 12:05 Baso % (Auto) 0.4 % (0-2) 09/27/23 12:05 Lymph # (Auto) 1.1 X10*3/uL (1.2-4.9) L 09/27/23 12:05 [place] # (Auto) 0.8 X10*3/uL (0.1-1.2) 09/27/23 12:05 Eos # (Auto) 0.1 X10*3/uL (0.0-0.4) 09/27/23 12:05 Baso # (Auto) 0.0 X10*3/uL (0.0-0.2) 09/27/23 12:05 Abs Immat Gran (auto) 0.01 X10*3/uL (0.00-0.03) 09/27/23 12:05 Absolute Neuts (auto) 2.5 x10*3/uL (2.0-8.3) 09/27/23 12:05 Absolute Nucleated RBC 0.000 X10*3/uL (0.0-0.012) 09/27/23 12:05 Nucleated RBC % (auto) 0.0 /100WBC (0.0-0.2) 09/27/23 12:05 Hold Purple Top SEE NOTE 09/29/23 07:14 PT 11.5 SEC (11.1-13.3) 09/24/23 01:30 INR 0.9 (0.9-1.1) 09/24/23 01:30 Sodium 140 mmol/L (135-145) 09/29/23 07:14 Potassium 4.0 mmol/L (3.3-5.1) 09/29/23 07:14 Chloride 112 mmol/L (96-108) H 09/29/23 07:14 Carbon Dioxide 22 mmol/L (22-29) 09/29/23 07:14 Anion Gap 10 (12-20) L 09/29/23 07:14 BUN 41 mg/dL (9-16) H 09/29/23 07:14 Creatinine 1.71 mg/dL (0.5-1.4) H 09/29/23 07:14 Estim Creat Clear Calc 19.1 09/29/23 07:14 Estimated GFR 29 09/29/23 07:14 POC Glucose 141 mg/dL (60-115) H 09/25/23 14:41 Random Glucose 82 mg/dL (60-115) 09/29/23 07:14 Fasting Glucose 91 mg/dL (60-99) 09/27/23 12:05 Calcium 8.3 mg/dL (8.4-10.2) L 09/29/23 07:14 Total Bilirubin 0.4 mg/dL (0.0-1.0) 09/27/23 12:05 Direct Bilirubin 0.1 mg/dL (0.0-0.5) 09/24/23 01:30 AST 25 U/L (5-31) 09/27/23 12:05 ALT 12 U/L (0-31) 09/27/23 12:05 Alkaline Phosphatase 65 U/L (39-117) 09/27/23 12:05 Total Creatine Kinase 43 U/L (26-140) 09/24/23 01:30 Troponin I High Sens 10.8 ng/L (<3.5-17.0) 09/24/23 10:39 B-Natriuretic Peptide 419 pg/mL (<100) H 09/25/23 05:40 Total Protein 6.5 g/dL (6.5-8.0) 09/27/23 12:05 Albumin 3.2 g/dL (3.5-5.0) L 09/27/23 12:05 Lipase 51 U/L (8-78) 09/24/23 01:30 Vitamin B12 323 pg/mL (200-900) 09/24/23 04:59 Folate 3.6 ng/mL (> or = 4.0) L 09/24/23 04:59 TSH 6.45 uIU/mL (0.32-4.0) H 09/25/23 05:40 Free T4 1.02 ng/dL (0.71-1.85) 09/27/23 12:05 Urine Color Yellow 09/24/23 02:51 Urine Appearance Clear 09/24/23 02:51 Urine pH 7.5 (5.0-9.0) 09/24/23 02:51 Ur Specific [place] <= 1.005 (1.005-1.025) 09/24/23 02:51 Urine Protein Negative mg/dL (Neg-Trace) 09/24/23 02:51 Urine Glucose (UA) Negative mg/dL (Negative) 09/24/23 02:51 Urine Ketones Negative mg/dL (Negative) 09/24/23 02:51 Urine Blood Negative (Negative) 09/24/23 02:51 Urine Nitrite Negative (Negative) 09/24/23 02:51 Ur Leukocyte Esterase Trace (Negative) H 09/24/23 02:51 Urine RBC 0-2 /HPF (0-2) 09/24/23 02:51 Urine WBC 0-5 /HPF (0-5) 09/24/23 02:51 Ur Squamous Epith Cells 0-2 /HPF (0-2) 09/24/23 02:51 Urine Bacteria None Seen (None Seen) 09/24/23 02:51 Hyaline Casts 0-2 /LPF (0-2) 09/24/23 02:51 Stool Occult Blood NEGATIVE (NEGATIVE) 09/25/23 16:24 Impressions Chest X-Ray 09/24/23 01:10 IMPRESSION: Pulmonary vascular congestion and diffuse increased markings. Consider developing fluid overload or congestive heart failure with early edema. There appear to be small bilateral pleural effusions. Cervical Spine CT 09/24/23 01:21 IMPRESSION: No acute intracranial hemorrhage. Soft tissue swelling/hematoma along the right posterior calvarium. No underlying depressed calvarial fracture. No acute, displaced cervical spine fracture. Head CT 09/24/23 01:21 IMPRESSION: No acute intracranial hemorrhage. Soft tissue swelling/hematoma along the right posterior calvarium. No underlying depressed calvarial fracture. No acute, displaced cervical spine fracture. Renal Ultrasound 09/26/23 08:35 IMPRESSION: 1. No echogenic renal calculi or hydronephrosis. 2. Complex cyst midpole right kidney. 3. Normal Doppler imaging right kidney. 4. The left kidney has been surgically removed. Carotid Doppler Study 09/26/23 14:20 IMPRESSION: 1. RIGHT: No hemodynamically significant stenosis in right carotid artery. 2. LEFT: 0-49% range stenosis in left proximal ICA and bulb region. 3. Normal antegrade flow seen in both vertebral arteries. TTE 09/28/23 - Normal left ventricular size, thickness, systolic function, and wall motion. The visually estimated ejection fraction is between 55-60%. Abnormal diastolic function is noted. Spectral Doppler is indicative of an impaired relaxation filling pattern. Elevated filling pressures. GLS -18%. - Normal right ventricular cavity size and systolic function. - The left atrium is normal in size. The right atrium is moderately dilated. Discharge Plan Discharge Anticipated Discharge Date/Time: 09/29/23 12:38 Patient Disposition: Home Health Service Discharge Diagnosis: Syncope due to orthostatic hypotension Acute/chronic kidney disease Folate deficiency anemia Referrals: Akin Blackmon MD [Physician] - 2 Weeks Kevan Ang MD [Primary Care Provider] - 1 Week Discharge Medications: New amlodipine 5 mg Tablet 5 mg PO DAILY Qty: 30 0RF Protocol: Hold for SBP< HOLD for SBP < : 90 folic acid 1 mg Tablet 1 mg PO DAILY Qty: 30 0RF Continued carvedilol 25 mg tablet 25 mg PO DAILY sertraline 50 mg tablet 50 mg PO QAM Discontinued losartan 100 mg tablet 100 mg PO QAM Discharge Orders: Discharge Order (Routine); Ordered 09/29/23 Ordered By: Jelani Torres Diet: Advance to usual diet Activity on Discharge: As tolerated Stand Alone Forms: Patient Portal Discharge page Other Ambulatory Orders: TSH reflex Free T4 (Routine) Timeframe: 1 Month Facility: [facility] - Location: Laboratory Ordered By: Jelani Torres Care Plan Goals: Prevent falls Health Concerns: Syncope due to orthostatic hypotension Acute/chronic kidney disease Folate deficiency anemia Plan of Treatment: Stop losartan. Replace it with amlodipine 5 mg daily. Continue carvedilol 25 mg daily. Orthostatic precautions. Home with VNA services. Follow up with your beverage host Dr Blackmon in 1-2 weeks. Take folate as prescribed. Eat plenty of leafy green vegetables. Please follow up with your primary care doctor within 1 week. Return to the hospital if you experience recurrent or worsening symptoms. TSH was elevated, though free T4 was normal. Recheck TSH + free T4 in 4-6 weeks. Assessment: See Discharge Summary. Patient Instructions: Syncope in Older Adults (DC)
[2023-09-30 11:08] LABS: Vitamin D 25-OH, D2 <4 ng/mL; Vitamin D 25-OH, D3 43 ng/mL; Vitamin D 25-OH, Total 43 ng/mL (30-100)
== END 2023-09-29 13:24 | disposition home health service (06) | DRG 312 ==
LOC: HO.ED 03:05 → HO.EDOVER 03:44 → HO.IMC 19:53
PROVIDERS: Hospitalist; Admitting Provider Internal Medicine; Emergency Provider Emergency Medicine; PCP Family Medicine; Visit Provider Family Medicine
DX: I95.1 Orthostatic hypotension (principal); J81.0 Acute pulmonary edema; N17.9 Acute kidney failure, unspecified; D52.9 Folate deficiency anemia, unspecified; F01.50 Vascular dementia, unspecified severity, without behavioral disturbance, psychotic disturbance, mood disturbance, and anxiety; D63.1 Anemia in chronic kidney disease; I12.9 Hypertensive chronic kidney disease with stage 1 through stage 4 chronic kidney disease, or unspecified chronic kidney disease; N18.30 Chronic kidney disease, stage 3 unspecified; Z90.5 Acquired absence of kidney; Z85.528 Personal history of other malignant neoplasm of kidney; Z79.899 Other long term (current) drug therapy
CPT/HCPCS: 36415; 70450; 71045; 72125; 76775; 80048; 80053; 80076; 81001; 82272; 82306; 82550; 82607; 82746; 82947; 83690; 83880; 84439; 84443; 84484; 85025; 85610; 93005; 93306; 93356; 93880; 93975; 97116; 97162; 97530; 99222; 99285; 99499; C1758; C9113; J1644; J1920; J1940; Q9957

== ENCOUNTER → 2023-09-24 00:59 | Outpatient (BNV) | payer MEDICARE, SELFPAY | PROVIDERS: Admitting Provider Internal Medicine; Emergency Provider Emergency Medicine; PCP Internal Medicine; Visit Provider Internal Medicine | DX: R94.31 Abnormal electrocardiogram [ECG] [EKG] (principal) | CPT/HCPCS: 93010 ==

== ENCOUNTER → 2023-09-24 03:39 | Outpatient (BNV) | payer MEDICARE, SELFPAY | PROVIDERS: Admitting Provider Internal Medicine; Emergency Provider Emergency Medicine; PCP Internal Medicine; Visit Provider Internal Medicine | DX: J81.0 Acute pulmonary edema (principal); R55 Syncope and collapse; I10 Essential (primary) hypertension; S09.90XA Unspecified injury of head, initial encounter | CPT/HCPCS: 99232; 99233; 99238; G0180 ==

== ENCOUNTER 2023-09-24 09:31 | Outpatient (BNV) | payer MEDICARE, SELFPAY | END 2023-09-25 14:34 | PROVIDERS: Admitting Provider Internal Medicine; Emergency Provider Emergency Medicine; PCP Internal Medicine; Visit Provider Internal Medicine Cardiovascular Disease | DX: R07.9 Chest pain, unspecified (principal); R94.31 Abnormal electrocardiogram [ECG] [EKG] | CPT/HCPCS: 93010 ==

== ENCOUNTER 2023-09-24 09:31 | Outpatient (BNV) | payer MEDICARE, SELFPAY | END 2023-09-28 07:00 | PROVIDERS: Admitting Provider Internal Medicine; Emergency Provider Emergency Medicine; PCP Family Medicine; Visit Provider Internal Medicine Cardiovascular Disease | DX: I34.81 Nonrheumatic mitral (valve) annulus calcification (principal) | CPT/HCPCS: 93306 ==

== ENCOUNTER → 2023-09-24 09:31 | Outpatient (BNV) | payer MEDICARE, SELFPAY | PROVIDERS: Admitting Provider Internal Medicine; Emergency Provider Emergency Medicine; PCP Internal Medicine; Visit Provider Psychiatry & Neurology Neurology | DX: F03.90 Unspecified dementia, unspecified severity, without behavioral disturbance, psychotic disturbance, mood disturbance, and anxiety (principal) | CPT/HCPCS: 99222 ==

== ENCOUNTER 2024-05-07 08:34 | Inpatient (IN) | payer MEDICARE, BC, SELFPAY ==
[2024-05-07] VITALS (30 sets, daily range): BP systolic 114–257; BP diastolic 47–111; PULSE 68–82; RESP 16–24; TEMP 36.6–36.8; O2SAT 90–99; BMI 21.0
--- NOTE | ~2024-05-07 | XR_ITS ---
EXAMINATION: XR CHEST CLINICAL INFORMATION: Difficulty breathing. COMPARISON: Most recent chest radiograph dated 09/24/2023. TECHNIQUE: Frontal view of the chest was obtained. FINDINGS: Interstitial and pulmonary vascular prominence with small bilateral pleural effusions and bibasilar airspace opacities, new/increased when compared to the prior examination. Stable cardiomediastinal silhouette. No pneumothorax. XR/XR chest 1V IMPRESSION: Interstitial and pulmonary vascular prominence with small bilateral pleural effusions and bibasilar airspace opacities, new/increased when compared to the prior examination. Findings can be seen in the setting of pulmonary edema. Electronically signed by: Juni Stearns MD 05/07/2024 09:26 AM EDT
--- NOTE | ~2024-05-07 | MR_ITS ---
EXAMINATION: MR ABDOMEN WITHOUT AND WITH CONTRAST CLINICAL INFORMATION: midpole cyst R kidney; hx L nephrectomy for cancer COMPARISON: Renal ultrasound 09/26/2023 TECHNIQUE: MR abdomen was performed without and with use of 5.5 mL intravenous Gadavist gadolinium contrast. Postcontrast images are performed in multiphase dynamic sequences. Imaging was performed in 3 planes. FINDINGS: Overall exam is slightly limited due to motion artifact. LUNG BASES: Small bilateral pleural effusions with bibasilar atelectasis. LIVER, GALLBLADDER, AND BILIARY TREE: Liver is mildly enlarged measuring 18.4 cm in craniocaudad dimension. No significant signal drop on the out of phase images. Evaluation of the liver parenchyma is slightly limited due to motion artifact. There is a 0.7 cm T2 hyperintense lesion in the right hepatic lobe segment 8 which demonstrates progressive enhancement on the postcontrast images, likely compatible with a small hemangioma, 6:13 and 14:24. Another punctate focus of enhancement in the hepatic dome may be related to tiny hemangioma, 12:15. The gallbladder is unremarkable. There is no intra or extrahepatic biliary ductal dilation. PANCREAS: 0.7 cm T2 hyperintense cystic lesion in the posterior tail of the pancreas, 3:7. The pancreatic duct is nondilated. SPLEEN: Normal size. No focal lesion. ADRENAL GLANDS: No adrenal nodule or mass. KIDNEYS: Status post left nephrectomy. There is a minimally complex exophytic cyst with thin septations in the lateral midpole of the right kidney measuring up to 5 cm. No enhancing nodular component. 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 Additional non-enhancing/hypoenhancing subcentimeter cortical lesion in the anterior cortex of the lower pole of the right kidney without definite correlate on T2-weighted images is too small to characterize and may also relate to a minimally complex cyst, 12:61. Right kidney otherwise demonstrates normal size and enhancement. No hydronephrosis. GASTROINTESTINAL TRACT: No bowel obstruction. Trace perihepatic ascites. ABDOMINAL WALL: No significant hernia is appreciated. LYMPH NODES: No abdominal lymphadenopathy. VASCULAR: The abdominal aorta is normal in caliber. OSSEOUS STRUCTURES: Multilevel degenerative changes of the visualized spine. MR/MR abdomen wo/w con IMPRESSION: Status post prior left nephrectomy. 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 No dedicated follow-up imaging is required. Additional non-enhancing/hypoenhancing subcentimeter cortical lesion in the anterior cortex of the lower pole of the right kidney without definite correlate on T2-weighted images is too small to characterize and may also relate to a minimally complex cyst. Small hepatic hemangiomas. Subcentimeter pancreatic cystic lesion. Follow-up imaging in 2 years is recommended. Small bilateral pleural effusions with bibasilar atelectasis Electronically signed by: Ayaz Zepeda MD 05/10/2024 09:37 AM EDT
--- NOTE | 2024-05-07 08:47 | ECG_ITS ---
Test Reason : DYSPNEA, HTN Blood Pressure : / mmHG Vent. Rate : 071 BPM Atrial Rate : 071 BPM P-R Int : 168 ms QRS Dur : 086 ms QT Int : 414 ms P-R-T Axes : 047 -26 068 degrees QTc Int : 449 ms Normal sinus rhythm Anteroseptal infarct (cited on or before 04-JUN-2014) Abnormal ECG When compared with ECG of 25-SEP-2023 14:34, Questionable change in initial forces of Lateral leads Nonspecific T wave abnormality has replaced inverted T waves in Lateral leads QRS axis Shifted left Referred By: Generic ED Physician Electronically Signed By:PETE ROSALES
--- NOTE | 2024-05-07 09:27 | ED.SOB ---
HPI - SOB/Dyspnea General Chief Complaint: Dyspnea Stated Complaint: Diff breathing Time Seen by Provider: 05/07/24 09:00 Source: patient and family Mode of arrival: ambulatory Limitations: no limitations History of Present Illness ED Provider: DR. Dockery HPI Narrative: 79-year-old female brought in by her 2 sons for evaluation of shortness of breath for a day or 2, no chest pain, patient declined any coughing, fever, or chills. Notice that the shortness of breath is more with exertion as described by her 2 sons minimal exertion would increase her shortness of breath, did not notice any leg edema or gaining weight, noticed when she lay flat increased coughing but not necessarily worsening of her shortness of breath. No chest pain, abdominal pain, no fever, no chills, no exposure to sick contacts. Patient normally lives home functional, Patient and family admitted to stress going on lately because her will be going to senior living tomorrow. Related Data Home Medications ?Medication ?Instructions ?Recorded ?Confirmed sertraline 50 mg tablet 50 mg PO DAILY 09/24/23 09/24/23 carvedilol 12.5 mg tablet 12.5 mg PO BID 05/07/24 ferrous sulfate 325 mg (65 mg 325 mg PO DAILY 05/07/24 iron) tablet,delayed release losartan 100 mg tablet 100 mg PO DAILY 05/07/24 Previous Rx's ?Medication ?Instructions ?Recorded amlodipine 5 mg tablet 5 mg PO DAILY #30 tabs 09/29/23 folic acid 1 mg tablet 1 mg PO DAILY #30 tabs 09/29/23 Allergies Allergy/AdvReac Type Severity Reaction Status Date / Time gluten Allergy Gastrointestinal Verified 05/07/24 08:44 Upset Review of Systems Review of Systems: All other systems are reviewed and are negative Constitutional: Reports as per HPI and Reports no additional constitutional complaints Eyes: Reports as per HPI and Reports no additional eye complaints Reports system reviewed and no additional complaints, except as documented Cardiovascular: Reports as per HPI and Reports no additional cardiovascular complaints Respiratory: Reports as per HPI and Reports no additional respiratory complaints Gastrointestinal: Reports as per HPI and Reports no additional gastrointestinal complaints Genitourinary: Reports no additional female genitourinary complaints Musculoskeletal: Reports no additional musculoskeletal complaints Skin/Breast: Reports system reviewed and no additional complaints, except as docu Psychiatric: Reports no additional psychiatric complaints Endocrine: Reports no additional endocrine complaints Hematologic/Lymphatic: Reports no additional hematologic/lymphatic complaints Allergic/Immunologic: Reports no additional allergic/immunologic complaints Reports system reviewed and no additional complaints, except as documented and Reports Abnormal speech present [facility] Past Medical History Medical History CKD (chronic kidney disease) stage 3, GFR 30-59 ml/min Multifactorial dementia Pulmonary edema Hypertension Syncope Closed head injury Social History Social History Alcohol intake: current Alcohol intake frequency: 0-2 drinks per day Comment: Family in room most of the day Patient Tobacco Use Status: Never used Tobacco Smoked in Last 30 Days: No Use of substances other than those prescribed or required for medical reasons: No Advance Directives: No Advance Directives Information Provided: No service: No Physical Exam Vital Signs: Vital Signs: Last Vital Signs Temp 98 F 05/07/24 15:30 Pulse 70 05/07/24 15:30 Resp 18 05/07/24 15:30 BP 164/67 H 05/07/24 15:30 Pulse Ox 98 05/07/24 15:30 O2 Del Method Nasal Cannula 05/07/24 15:30 O2 Flow Rate 1.5 05/07/24 15:30 BMI result Body Mass Index 21.0 Vital signs have been reviewed and appear to be correct. Blood pressure elevated. Heart rate normal. Respiratory rate normal. Temperature normal. Oxygen saturation normal. Appearance: Alert. Oriented X3. No acute distress. Head: Normal external exam. Normocephalic. Atraumatic. No Shen signs noted. No raccoon eyes noted Eyes: PERRLA. EOMI. Conjunctiva and sclera normal. Eyelids normal. ENT: TM's Normal. Pharynx normal. Uvula midline. Moist mucous membranes. No trismus noted. No drooling noted. No muffled voice noted. Neck: Normal inspection. Neck supple. FROM. No adenopathy. Thyroid Normal. No meningeal signs. No neck mass noted. CVS: Normal heart rate and rhythm. Heart sound normal. No murmurs noted. Pulses normal throughout. Respiratory: No respiratory distress. Painless inspiration. Bilateral basilar rales bilaterally.. Chest nontender. No accessory muscle usage noted or decreased air movement noted. Abdomen: Soft and nontender. Bowel sounds normal in all 4 quadrants. No distention noted. No organomegaly noted. No visible injury noted. Back: No CVA tenderness. Full range of motion noted. Skin: Skin warm and dry. Normal skin color. Normal skin turgor. No rashes/lesions/lacerations noted. Extremities: +1 lower extremity edema bilaterally. Extremities exhibit normal range of motion. Extremities nontender. Neuro: Oriented X 3. Cranial nerve exam: II-XII are grossly intact No motor deficit. No sensory deficit. Reflexes normal. Course Reevaluation(s) Reevaluation #1: 79-year-old female with shortness of breath slightly hypoxic and hypertensive physical exam is consistent with CHF. Continue diuresis, nitro paste to the chest wall, monitoring the blood pressure, admit to medical floor for further diuresis and blood pressure control. Time: 10:36 Reevaluation #2: blood pressure is still at high value, patient is symptomatic with congestive heart failure, multiple doses of oral amlodipine with no good effect, will start the patient on nicardipine IV drip of greater admission to ICU case was discussed with who accepted the patient to ICU for further blood pressure monitoring. Time: 14:01 Medications Administered Generic Name Dose Route Start Last Admin Trade Name Freq PRN Reason Stop Dose Admin Nicardipine HCl 25 mg/ Sodium 260 mls @ 0 mls/hr 05/07/24 14:00 05/07/24 15:24 Chloride IVCONT 0 mg/hr .Q0M RAMY 0 mls/hr Titration Protocol Per Protocol Discontinued Medications Generic Name Dose Route Start Last Admin Trade Name Freq PRN Reason Stop Dose Admin Amlodipine Besylate 2.5 mg 05/07/24 10:41 05/07/24 10:51 Amlodipine Besylate 2.5 Mg Tablet PO 05/07/24 10:42 2.5 mg ONCE ONE Administration Protocol Amlodipine Besylate 10 mg 05/07/24 12:01 05/07/24 12:09 Amlodipine Besylate 10 Mg Tablet PO 05/07/24 12:02 10 mg ONCE ONE Administration Protocol Furosemide 40 mg 05/07/24 09:24 05/07/24 09:38 Furosemide 40 Mg/4 Ml Vial IVPUSH 05/07/24 09:25 40 mg ONCE ONE Administration Protocol Furosemide 40 mg 05/07/24 10:41 05/07/24 10:51 Furosemide 40 Mg/4 Ml Vial IVPUSH 05/07/24 10:42 40 mg STAT STA Administration Protocol Hydralazine HCl 5 mg 05/07/24 13:34 05/07/24 13:41 Hydralazine Hcl 20 Mg/Ml Vial IVPUSH 05/07/24 13:35 5 mg ONCE ONE Administration Protocol Nitroglycerin 0.5 inch 05/07/24 09:24 05/07/24 09:38 Nitroglycerin 2 % Oint 1 Gm Packet TRANSDERMA 05/07/24 09:25 0.5 inch ONCE ONE Administration Medical Decision Making Differential Diagnosis Differential Diagnoses: The differential diagnosis associated with the presentation includes ( ACS, CHF, pneumonia, pneumothorax, pleural effusion, electrolyte derangement, hypertensive urgency, hypertensive emergency,) Admission/Observation Consideration of admission/observation: Escalation of care including admission/observation considered Consult Healthcare Provider Management of the patient was discussed with: Hospitalist ( Dr. Diamond) Lab Data MDM Lab Attestation statement: I reviewed the patient's lab results. 05/07/24 09:32 05/07/24 09:32 Labs: Lab Results 05/07/24 Range/Units 09:32 WBC 4.2 L (4.8-10.8) X10*3/uL RBC 2.71 L (4.20-5.50) X10*6/uL Hgb 8.1 L D (12.0-16.0) g/dl Hct 25.8 L D (37.0-47.0) % MCV 95.2 (80.0-98.0) fL MCH 29.9 (27.0-33.0) pg MCHC 31.4 (31.0-35.0) g/dl RDW 14.3 (11.0-16.0) % Plt Count 175 (160-400) X10*3/uL MPV 11.3 (9.4-12.3) fL Immature Gran % (Auto) 0.2 (0.0-0.4) % Neut % (Auto) 70.2 (45-73) % Lymph % (Auto) 15.4 L (20-40) % [place] % (Auto) 10.4 (2-11) % Eos % (Auto) 3.1 (0-4) % Baso % (Auto) 0.7 (0-2) % Lymph # (Auto) 0.6 L (1.2-4.9) X10*3/uL [place] # (Auto) 0.4 (0.1-1.2) X10*3/uL Eos # (Auto) 0.1 (0.0-0.4) X10*3/uL Baso # (Auto) 0.0 (0.0-0.2) X10*3/uL Abs Immat Gran (auto) 0.01 (0.00-0.03) X10*3/uL Absolute Neuts (auto) 2.9 (2.0-8.3) x10*3/uL Absolute Nucleated RBC 0.000 (0.0-0.012) X10*3/uL Nucleated RBC % (auto) 0.0 (0.0-0.2) /100WBC Sodium 140 (135-145) mmol/L Potassium 4.2 (3.3-5.1) mmol/L Chloride 110 H (96-108) mmol/L Carbon Dioxide 21 L (22-29) mmol/L Anion Gap 13 (12-20) BUN 20 H (9-16) mg/dL Creatinine 2.01 H (0.5-1.4) mg/dL Estim Creat Clear Calc 20.7 Estimated GFR 24 Random Glucose 109 (60-115) mg/dL Calcium 8.7 (8.4-10.2) mg/dL Troponin I High Sens 11.4 (<3.5-17.0) ng/L B-Natriuretic Peptide 1155 H (<100) pg/mL Independent Interpretation I performed an independent interpretation of an: EKG ( Normal sinus rhythm at 71 beats per minutes, left axis deviation, normal intervals, no ST-T changes.) and Plain X-Ray ( chest:Interstitial and pulmonary vascular prominence with small bilateral pleural effusions and bibasilar airspace opacities, new/increased when compared to the prior examination. Findings can be seen in the setting of pulmonary edema.) Radiology Impression Discussion of test interpretation with radiology: I have reviewed the radiologist's reading. Critical Care Time Critical Care Time Critical Care Time: Yes Total Critical Care Time: 60 Attestation: The patient was critically ill with a high probability of imminent or life-threatening deterioration. I spent greater than 30 minutes of discontinuous time evaluating the patient, delivering critical care at the bedside, discussing evaluating data with consultants. Critical care time does not include time spent performing separately billable procedures or teaching. Time spent performing critical care was 60 minutes. Discharge Plan Discharge Clinical Impression: CHF (congestive heart failure), Hypertensive emergency Patient Disposition: Admitted As Inpatient
[2024-05-07] MEDS: Furosemide 40 MG/4 ML VIAL IVPUSH ×2 (09:38→10:51)
[2024-05-07] MEDS: Nitroglycerin 2 % Oint 1 GM Packet 0.5 INCH TRANSDERMA (09:38)
[2024-05-07 09:40] LABS: MANUAL DIFF FLAG NO
[2024-05-07 09:45] LABS: Basophils Percent Auto 0.7 % (0-2); Eosinophils Absolute Auto 0.1 X10*3/uL (0.0-0.4); Eosinophils Percent Auto 3.1 % (0-4); Hematocrit 25.8 % (37.0-47.0); Hemoglobin 8.1 g/dl (12.0-16.0); Imm Gran Abs Auto 0.01 X10*3/uL (0.00-0.03); Imm Gran Pct Auto 0.2 % (0.0-0.4); Lymphocytes Absolute Auto 0.6 X10*3/uL (1.2-4.9); Lymphocytes Percent Auto 15.4 % (20-40); Mean Corpuscular HGB Conc 31.4 g/dl (31.0-35.0); Mean Corpuscular Hemoglobin 29.9 pg (27.0-33.0); Mean Corpuscular Volume 95.2 fL (80.0-98.0); Mean Platelet Volume 11.3 fL (9.4-12.3); Monocytes Absolute Auto 0.4 X10*3/uL (0.1-1.2); Monocytes Percent Auto 10.4 % (2-11); Neutrophils Absolute Auto 2.9 x10*3/uL (2.0-8.3); Neutrophils Percent Auto 70.2 % (45-73); Platelet Count 175 X10*3/uL (160-400); Red Blood Count 2.71 X10*6/uL (4.20-5.50); Red Cell Distribution Width 14.3 % (11.0-16.0); White Blood Count 4.2 X10*3/uL (4.8-10.8)
[2024-05-07 10:02] LABS: Anion Gap 13 (12-20); Blood Urea Nitrogen 20 mg/dL (9-16); Calcium 8.7 mg/dL (8.4-10.2); Carbon Dioxide 21 mmol/L (22-29); Chloride 110 mmol/L (96-108); Creatinine Clr Calc Pharmacy 20.7; Estimated Glomerular Filt Rate 24; Glucose Random 109 mg/dL (60-115); Potassium 4.2 mmol/L (3.3-5.1); Sodium 140 mmol/L (135-145)
[2024-05-07 10:10] LABS: B Type Natriuretic Peptide 1155 pg/mL (<100); Troponin-I High Sensitivity 11.4 ng/L (<3.5-17.0)
[2024-05-07] MEDS: amLODIPine Besylate 2.5 MG TABLET PO (10:51)
--- NOTE | 2024-05-07 11:14 | PC.NURSE ---
Message sent to case management per family request- sons stating father is in overflow and is supposed to be transferred to a facility in [place] tomorrow but that it will be hard to visit both mom and dad if mom is admitted here at [facility].
[2024-05-07] MEDS: amLODIPine Besylate 10 MG TABLET PO (12:09)
--- NOTE | 2024-05-07 13:11 | PC.NURSE ---
Provider aware of continued high BP`s
[2024-05-07] MEDS: hydrALAZINE HCl 20 MG/ML VIAL 5 MG IVPUSH (13:41)
[2024-05-07] MEDS: niCARdipine HCL 25 MG in 0.9 % Sodium Chloride 250 ML 52 MG IVCONT (14:26)
--- NOTE | 2024-05-07 14:52 | PM.CCHP ---
History of Present Illness Date of Service: 05/07/24 Chief Complaint: Not feeling good This 79-year-old sweet elderly lady with past medical history of hypertension, single kidney (s/pnephrectomy for tumor), early dementia had presented to the hospital as her is being he had at the ER overflow due to advanced Alzheimer's disease. Her blood pressure was found to be in 230 systolic so MICU was consulted for admission. According to the son who is her POA her home blood pressure has been ranging around 180s for the past month, she is on carvedilol and losartan 100 mg daily at home which she has been taking. She was put on amlodipine in the past but it caused lower extremity swelling so she stopped taking it. Review of Systems Constitutional: Constitutional: Denies body ache(s), Denies chills, Denies daytime sleepiness and Denies difficulty sleeping Eyes: Eyes: Denies change in vision and Denies decreased night vision ENT: Reports Normal hearing present and Denies bleeding gums Cardiovascular: Cardiovascular: Denies Abdominal Cramping after Meds and Denies Abdominal Distension Respiratory: Respiratory: Denies change in phlegm color, Denies chest congestion and Denies cough Gastrointestinal: Gastrointestinal: Denies belching, Denies melena and Denies bloating Genitourinary: Genitourinary: Denies abnormal vaginal bleeding, Reports amenorrhea and Denies change in libido Musculoskeletal: Musculoskeletal: Denies back pain, Denies myalgias and Reports atrophy Integumentary/Breasts: Skin/Breast: Denies bleeding lesions, Denies breast swelling and Denies swelling Neurologic: Reports Normal hearing present, Denies Neuro-related abnormal movements, Denies Abnormal speech present and Denies behavioral changes Psychiatric: Psychiatric: Denies behavioral changes, Denies change in appetite and Denies change in libido Endocrine: Endocrine: Denies change in libido and Denies cold intolerance [facility] Past Medical History Medical History CKD (chronic kidney disease) stage 3, GFR 30-59 ml/min Multifactorial dementia Pulmonary edema Hypertension Syncope Closed head injury Social History Social History Alcohol intake: current Alcohol intake frequency: 0-2 drinks per day Comment: Family in room most of the day Patient Tobacco Use Status: Never used Tobacco Smoked in Last 30 Days: No Use of substances other than those prescribed or required for medical reasons: No Advance Directives: No Advance Directives Information Provided: No service: No Meds Allergies Allergy/AdvReac Type Severity Reaction Status Date / Time gluten Allergy Gastrointestinal Verified 05/07/24 08:44 Upset Active Medications: Current Medications Carvedilol (Carvedilol 25 Mg Tablet) 25 mg PO BID ONE; Protocol Stop: 05/07/24 14:51 Heparin Sodium (Porcine) (Heparin Sodium,Porcine 5,000 Unit/Ml Vial) 5,000 unit SUBCUT Q12H RAMY Hydrochlorothiazide (Hydrochlorothiazide 25 Mg Tablet) 25 mg PO DAILY ONE; Protocol Stop: 05/07/24 14:51 Nicardipine HCl 25 mg/ Sodium (Chloride) 260 mls @ 0 mls/hr IVCONT .Q0M RAMY; Protocol Last Titration: 05/07/24 14:50 Dose: 7.5 mg/hr, 78 mls/hr Losartan Potassium (Losartan Potassium 50 Mg Tablet) 100 mg PO DAILY ONE; Protocol Stop: 05/07/24 14:51 Home Medications ?Medication ?Instructions ?Recorded ?Confirmed ?Last Taken ?Type sertraline 50 mg tablet 50 mg PO DAILY 09/24/23 09/24/23 09/24/23 History carvedilol 12.5 mg tablet 12.5 mg PO BID 05/07/24 Unknown History ferrous sulfate 325 mg (65 mg 325 mg PO DAILY 05/07/24 Unknown History iron) tablet,delayed release losartan 100 mg tablet 100 mg PO DAILY 05/07/24 Unknown History Physical Exam Vital Signs: Vital Signs: Last Vital Signs Temp 98.2 F 05/07/24 14:08 Pulse 75 05/07/24 14:50 Resp 22 H 05/07/24 14:08 BP 205/74 H 05/07/24 14:50 Pulse Ox 98 05/07/24 14:08 O2 Del Method Nasal Cannula 05/07/24 14:08 O2 Flow Rate 1.5 05/07/24 14:08 BMI result Body Mass Index 21.0 General: Not in acute distress, comfortable sitting on the bed Nutritional Appearance: Poor nourished and under weight Eyes: appearance normal, both eyes and all related structures; Alignment and Position: alignment normal and position normal Neck: No lymphadenopathy, no thyromegaly Resp: bilateral air entry equal, occasional added sounds present Cardio: Regular rate, regular rhythm; Heart sounds: S1 normal heart sound present and S2 normal heart sound present GI: soft, nontender, no guarding, no hepatosplenomegaly : bladder normal to inspection, bladder normal to palpation, no renal angle tenderness Skin: no rashes or lesions noted and elasticity normal Neuro: oriented to person, oriented to place, oriented to time and moves all extremities Neuro: Cranial nerves: Yes Normal hearing present Speech: No Abnormal speech present Results Labs 05/07/24 09:32 05/07/24 09:32 Labs: Laboratory Results - last 24 hr 05/07/24 09:32 MCV 95.2 MCH 29.9 MCHC 31.4 RDW 14.3 Plt Count 175 MPV 11.3 Immature Gran % (Auto) 0.2 Neut % (Auto) 70.2 Lymph % (Auto) 15.4 L [place] % (Auto) 10.4 Eos % (Auto) 3.1 Baso % (Auto) 0.7 Lymph # (Auto) 0.6 L [place] # (Auto) 0.4 Eos # (Auto) 0.1 Baso # (Auto) 0.0 Abs Immat Gran (auto) 0.01 Absolute Neuts (auto) 2.9 Absolute Nucleated RBC 0.000 Nucleated RBC % (auto) 0.0 Anion Gap 13 Estim Creat Clear Calc 20.7 Estimated GFR 24 Random Glucose 109 Calcium 8.7 Troponin I High Sens 11.4 B-Natriuretic Peptide 1155 H Imaging Radiologist's Impressions: Impressions Chest X-Ray 05/07/24 08:47 IMPRESSION: Interstitial and pulmonary vascular prominence with small bilateral pleural effusions and bibasilar airspace opacities, new/increased when compared to the prior examination. Findings can be seen in the setting of pulmonary edema. Electronically signed by: Juni Stearns MD 05/07/2024 09:26 AM EDT RP Assessment and Plan (1) Hypertensive emergency: Status: Acute (2) Elevated TSH: Status: Acute (3) Folate deficiency anemia: Status: Acute (4) Orthostatic hypotension: Status: Acute (5) CHF (congestive heart failure): Status: Acute Plan 79-year-old lady with past medical history of hypertension, single kidney presented to the ED due to hypertensive urgency Hypertensive urgency: Blood pressure is in the ED ranging from 220/97 to 252/117mmHg, so started on nicardipine drip At home patient is on Coreg and losartan which has been restarted. At home her blood pressure stays around 180s We will add hydrochlorothiazide for additional diuretic affect, stopped amlodipine in the past due to lower extremity swelling Titrate nicardipine drip, target map around 100 mm Hg until tomorrow morning Troponin normal, BNP 1100, EKG showed poor progression of R-wave. TTE in September normal Chronic kidney disease: Status post nephrectomy for tumor Creatinine at baseline Chronic malnutrition: We will improved diet as tolerated Prophylaxis: Heparin Code status: DNI DNR Total time managing care of this patient today: 40 minutes.
--- NOTE | 2024-05-07 15:22 | PC.NURSE ---
Late charting d/t pt care. Pt comes from home for increased sob/cough since Wednesday. Upon arrival pt very sob, unable to speak in full sentences, sitting up in the bed, also hypertensive 200s/100s, aware of HTN. Pt a/ox4, increased wob/sob noted, pt feels as though shes unable to catch her breath, S1 and S2 heard, NSR on crate liner- HR 70s, abdomen soft, non-tender on palpation. Pt medicated with 80mg IVP Lasix, pt educated on lasix/ side effects. Pt placed on purewick, this RN wasn't comfortable with pt getting oob to commode with sob, pt also has increased SOB with moving around in bed. Pt output 1500ml, clear yellow urine. Pt also on and off bedpan with small, soft bowel movements. Pt family notified this RN to rash pt develops on legs when taking Amlodipine, pcp recently took her off amlodipine d/t the rash. [employer] notified, per MD give Amlodipine and monitor for side effects. PO Amlodipine given, pt BP remains in the 200s/100s. IVP hydralazine given, per MD Thorne plan to start nicardipene drip. Pt placed on nicardipine drip at 5mg/hr, pt BP still 200s/100s at 15 min BP check, titrated up to 7.5mg/hr. After second 15 min check pt BP 147/48, nicardipene drip decreased back to 5mg/hr, MD notified about BP and question stopping drip or continuing. Report given to 3RD GRADE TEACHERKYLEIGH Breaux pt to be transported to ICU with RN.
--- NOTE | 2024-05-07 15:25 | PC.NURSE ---
Provider aware of current BP, new order to pause drip. Patient reports feeling better, decreased sob. Placed on bed pain had small BM.
--- NOTE | 2024-05-07 15:49 | PC.NURSE ---
Pt desat into high 80s with good pleth, placed on 2L NC. O2 sat up to 95%.
--- NOTE | 2024-05-07 15:58 | PHA.MEDREC ---
Addendum entered by Kolton Taylor [facility] 05/07/24 16:49: MED REC CHECKED BY [facility] Original Note: Pharmacy Consult ? Medication Reconciliation Pharmacy has completed the medication reconciliation.
[2024-05-07] MEDS: Losartan Potassium 50 MG TABLET 100 MG PO (16:04)
[2024-05-07] MEDS: hydroCHLOROthiazide 25 MG TABLET PO (16:04)
[2024-05-07] MEDS: Heparin Sodium,Porcine 5,000 UNIT/ML VIAL 5000 UNIT SUBCUT (16:04)
[2024-05-07] MEDS: carvediloL 25 MG TABLET PO ×2 (16:08→19:59)
[2024-05-07] MEDS: Albumin Human 25 % 100 ML IV ×2 (19:59→21:27)
[2024-05-08] VITALS (23 sets, daily range): BP systolic 122–200; BP diastolic 47–110; PULSE 65–81; RESP 14–20; TEMP 36.1–37.7; O2SAT 91–98; BMI 20.5
[2024-05-08] MEDS: 0.9 % Sodium Chloride Flush 3 ML SYRINGE IVFLUSH ×4 (00:16→19:51)
[2024-05-08] MEDS: Heparin Sodium,Porcine 5,000 UNIT/ML VIAL 5000 UNIT SUBCUT ×2 (03:18→15:27)
[2024-05-08 04:41] LABS: VBG Base Excess 3.7 mmol/L; VBG HCO3 26 mmol/L (22-26); VBG O2 % Saturation < 30.0 %; VBG pCO2 31 mmHg; VBG pH 7.52 (7.32-7.43); VBG pO2 26 mmHg
[2024-05-08 04:44] LABS: Venous Blood Gas Refer to POC result
[2024-05-08 05:05] LABS: MANUAL DIFF FLAG NO
[2024-05-08 05:07] LABS: Basophils Percent Auto 0.6 % (0-2); Eosinophils Absolute Auto 0.1 X10*3/uL (0.0-0.4); Eosinophils Percent Auto 1.4 % (0-4); Hematocrit 24.4 % (37.0-47.0); Hemoglobin 7.6 g/dl (12.0-16.0); Imm Gran Abs Auto 0.02 X10*3/uL (0.00-0.03); Imm Gran Pct Auto 0.4 % (0.0-0.4); Lymphocytes Absolute Auto 1.2 X10*3/uL (1.2-4.9); Lymphocytes Percent Auto 23.8 % (20-40); Mean Corpuscular HGB Conc 31.1 g/dl (31.0-35.0); Mean Corpuscular Hemoglobin 29.1 pg (27.0-33.0); Mean Corpuscular Volume 93.5 fL (80.0-98.0); Mean Platelet Volume 11.8 fL (9.4-12.3); Monocytes Absolute Auto 0.6 X10*3/uL (0.1-1.2); Monocytes Percent Auto 13.3 % (2-11); Neutrophils Absolute Auto 2.9 x10*3/uL (2.0-8.3); Neutrophils Percent Auto 60.5 % (45-73); Platelet Count 195 X10*3/uL (160-400); Red Blood Count 2.61 X10*6/uL (4.20-5.50); Red Cell Distribution Width 14.3 % (11.0-16.0); White Blood Count 4.8 X10*3/uL (4.8-10.8)
[2024-05-08 05:26] LABS: B Type Natriuretic Peptide 876 pg/mL (<100)
[2024-05-08 05:28] LABS: Alanine Aminotransferase 13 U/L (0-31); Albumin Level 4.2 g/dL (3.5-5.0); Alkaline Phosphatase 57 U/L (39-117); Anion Gap 15 (12-20); Aspartate Amino Transferase 17 U/L (5-31); Bilirubin Total 0.6 mg/dL (0.0-1.0); Blood Urea Nitrogen 27 mg/dL (9-16); Calcium 9.5 mg/dL (8.4-10.2); Carbon Dioxide 24 mmol/L (22-29); Chloride 106 mmol/L (96-108); Creatinine Clr Calc Pharmacy 16.4; Estimated Glomerular Filt Rate 18; Glucose Random 99 mg/dL (60-115); Phosphorus 3.7 mg/dL (2.7-4.5); Potassium 3.3 mmol/L (3.3-5.1); Sodium 142 mmol/L (135-145); Total Protein 7.1 g/dL (6.5-8.0)
[2024-05-08] MEDS: Potassium Chloride Packet 20 MEQ PACKET 40 MEQ PO (05:58)
[2024-05-08] MEDS: Losartan Potassium 50 MG TABLET 100 MG PO (08:23)
[2024-05-08] MEDS: carvediloL 25 MG TABLET PO ×2 (08:24→19:49)
[2024-05-08] MEDS: hydroCHLOROthiazide 25 MG TABLET PO (08:24)
[2024-05-08] MEDS: Flu Vacc TS2024-25(6mos up)/PF 0.5 ML SYRINGE IM (08:48)
--- NOTE | 2024-05-08 09:41 | P.PNCC_ITS ---
Subjective Subjective Date of Service: 05/08/24 Critical Care Time (minutes): 60 Physical Exam 2 Vital Signs: Vital Signs: Last Vital Signs Temp 97.6 F 05/08/24 08:00 Pulse 72 05/08/24 09:00 Resp 18 05/08/24 09:00 BP 163/64 H 05/08/24 09:00 Pulse Ox 96 05/08/24 09:00 O2 Del Method Room Air 05/08/24 09:00 O2 Flow Rate 1.5 05/08/24 00:00 FiO2 35 05/07/24 21:00 BMI result Body Mass Index 20.5 Const: General: cooperative, healthy appearing, comfortable, no acute distress, well developed, alert, awake and Physically active O rientation/consciousness: patient oriented x3 HEENT: Head: Yes normal to inspection, Yes normocephalic and Yes atraumatic Eyes: General: appearance normal, both eyes and all related structures Neck: Neck: Yes normal visual inspection, Yes full ROM, Yes trachea midline and Yes supple Chest: Chest palpation & inspection: normal inspection of the chest Resp: Other: no appreciable rales, rhonchi, wheezing Effort & Inspection: normal respiratory effort Cardio: Rate: regular rate Rhythm: regular rhythm GI: Inspection: Yes normal to inspection, No Abdominal wall edema and No distended Palpation (GI): Soft to palpation, not firm, nontender, no guarding and not rigid Skin: General skin exam: no rashes or lesions noted Neuro: General: patient oriented x3, tone normal, moves all extremities and no focal motor deficits Psych: Appearance: grossly normal Objective Data Labs 05/08/24 04:31 05/08/24 04:31 Labs: Laboratory Results - last 24 hr 05/07/24 05/08/24 09:32 04:31 WBC 4.2 L 4.8 RBC 2.71 L 2.61 L Hgb 8.1 L D 7.6 L Hct 25.8 L D 24.4 L MCV 95.2 93.5 MCH 29.9 29.1 MCHC 31.4 31.1 RDW 14.3 14.3 Plt Count 175 195 MPV 11.3 11.8 Immature Gran % (Auto) 0.2 0.4 Neut % (Auto) 70.2 60.5 Lymph % (Auto) 15.4 L 23.8 [place] % (Auto) 10.4 13.3 H Eos % (Auto) 3.1 1.4 Baso % (Auto) 0.7 0.6 Lymph # (Auto) 0.6 L 1.2 [place] # (Auto) 0.4 0.6 Eos # (Auto) 0.1 0.1 Baso # (Auto) 0.0 0.0 Abs Immat Gran (auto) 0.01 0.02 Absolute Neuts (auto) 2.9 2.9 Absolute Nucleated RBC 0.000 0.000 Nucleated RBC % (auto) 0.0 0.0 VBG pH 7.52 H VBG pCO2 31 VBG pO2 26 VBG HCO3 26 VBG O2 Saturation < 30.0 VBG Base Excess 3.7 Sodium 140 142 Potassium 4.2 3.3 D Chloride 110 H 106 Carbon Dioxide 21 L 24 Anion Gap 13 15 BUN 20 H 27 H Creatinine 2.01 H 2.54 H Estim Creat Clear Calc 20.7 16.4 Estimated GFR 24 18 Random Glucose 109 99 Calcium 8.7 9.5 D Phosphorus 3.7 Magnesium 2.0 Total Bilirubin 0.6 AST 17 ALT 13 Alkaline Phosphatase 57 Troponin I High Sens 11.4 B-Natriuretic Peptide 1155 H 876 H Total Protein 7.1 Albumin 4.2 Progress Note: A&P Assessment and plan (1) Hypertensive urgency: Status: Acute Plan Patient is a 79 Y F w/ hypertension, single kidney, and dementia, presenting to emergency department on 05/07 w/ dyspnea, found to have SP 230s, admitted for nicardipine gtt N: no acute issues CV: hypertensive urgency, s/p nicardipine gtt; re-started home carvedilol, lisinopril; hydralazine PRN R: no acute issues GI: cardiac diet : acute on chronic renal insufficiency; to monitor renal indices H: acute on chronic anemia; to closely monitor ID: no overt stigmata of infection E: to follow-up TSH/T4 P: no acute issues Quality Stroke Does the patient have a stroke diagnosis?: No VTE Prior VTE?: No VTE Risk Level:: Medical - low VTE Device Contraindication: N/A - Device Ordered VTE Drug Contraindication: N/A - Med Ordered
[2024-05-08 11:35] LABS: TSH reflex Free T4 5.84 uIU/mL (0.32-4.0)
[2024-05-08 12:15] LABS: Free T4 (Free Thyroxine) 1.12 ng/dL (0.71-1.85)
[2024-05-08 13:45] LABS: Appearance Urine Clear; Color Urine Yellow; Glucose Urine UA Negative (Negative); Leukocyte Esterase Urine Negative (Negative); Nitrite Urine Negative (Negative); PH 7.5 (5.0-9.0); Urine Blood Negative (Negative); Urine Ketones Negative (Negative); Urine Protein Negative (Neg-Trace)
[2024-05-08 13:47] LABS: Bacteria Urine None Seen (None Seen); Hyaline Casts Urine 0-2 /LPF (0-2); RBC Urine 0-2 /HPF (0-2); Squamous Epithelial Cell Urine 0-2 /HPF (0-2); WBC Urine 0-5 /HPF (0-5)
--- NOTE | 2024-05-08 13:52 | P.CDIM_ITS ---
PROVIDER RESPONSE TEXT: To clarify, the appropriate diagnosis supported by the clinical indicators: Acute kidney Insufficiency QUERY TEXT: PHYSICIAN'S DOCUMENTATION REQUEST Date of Query: 05/08/2024 10:34 AM EDT Patient Name: Nataliya Forrest Admit Date: 05/07/2024 Dear Jeanette Hansen MD, A review of the medical record indicates additional documentation may be needed. Please review below and update the documentation accordingly. Clinical Indicators: Cr: 2.54 Gfr 18 Bun 27 Single kidney, hypertension CKD 3 Poorly nourished. Acute kidney Insufficiency Acute kidney Injury Other (explain) Clinically unable to determine (explain) Thank you, Marleny Rosales, CCS, CDIS Use of terms such as suspected, likely, concern for, or probable (associated with a specific diagnosi s that is being evaluated, monitored, or treated as if it exists) are acceptable and can be coded in the inpatient se tting, when documented at the time of discharge. Please use your independent medical judgment in providing your response. THIS QUERY IS PART OF THE PERMANENT MEDICAL RECORD
--- NOTE | 2024-05-08 14:30 | MHC.CM.PN ---
Pt admitted to ICU w/HTN crisis: doing well and may downgrade today to IMC: Met w/pt and son to review d/c planning needs: pt presently resides alone: has family support and was previously caring for her spouse who is boarding in the ED awaiting transfer to [facility] in [place]. Family considering [facility] placement once pt is d/c'd vs home or transfer to [facility] for STR. Pt is ambulatory at baseline without DME or services. IMM in chart, advanced directives at home: copy requested. Family can transport vs BLS. CM to follow. Referred to [facility] in [place] should she need STR.
--- NOTE | 2024-05-08 16:06 | PM.EVENT ---
Event Note Date of Service: 05/08/24 Event Note: d2 79yo F with HTN, solitary kidney, CKD4, dementia, HFpEF presenting with dyspnea and diuresed; developed HTN emergency and admitted to ICU for nicardipine drip; restarted home carvedilol + losartan, also started on HCTZ, and stepped down to telemetry will obtain TTE Nephrology consult ] Time Spent With Patient Time: Total time managing care of this patient today ____ minutes.
[2024-05-08] MEDS: hydrALAZINE HCl 20 MG/ML VIAL 10 MG IVPUSH (23:47)
[2024-05-09] VITALS (11 sets, daily range): BP systolic 103–174; BP diastolic 42–78; PULSE 60–84; RESP 14–20; TEMP 35.4–36.5; O2SAT 97–100
--- NOTE | 2024-05-09 | ECG_ITS ---
Test Reason : Stat Order Blood Pressure : / mmHG Vent. Rate : 062 BPM Atrial Rate : 062 BPM P-R Int : 122 ms QRS Dur : 082 ms QT Int : 472 ms P-R-T Axes : 030 -29 103 degrees QTc Int : 479 ms Normal sinus rhythm Left ventricular hypertrophy with repolarization abnormality ( [place] product ) Cannot rule out Septal infarct (cited on or before 04-JUN-2014) Abnormal ECG When compared with ECG of 07-MAY-2024 09:03, No significant change was found Referred By: Jelani Torres Electronically Signed By:PETE ROSALES
[2024-05-09] MEDS: hydrALAZINE HCl 20 MG/ML VIAL IVPUSH (01:30)
[2024-05-09 06:39] LABS: MANUAL DIFF FLAG NO
[2024-05-09 07:00] LABS: Basophils Percent Auto 0.6 % (0-2); Eosinophils Absolute Auto 0.1 X10*3/uL (0.0-0.4); Eosinophils Percent Auto 1.3 % (0-4); Hematocrit 26.2 % (37.0-47.0); Hemoglobin 8.3 g/dl (12.0-16.0); Imm Gran Abs Auto 0.03 X10*3/uL (0.00-0.03); Imm Gran Pct Auto 0.6 % (0.0-0.4); Lymphocytes Absolute Auto 0.4 X10*3/uL (1.2-4.9); Lymphocytes Percent Auto 7.9 % (20-40); Mean Corpuscular HGB Conc 31.7 g/dl (31.0-35.0); Mean Corpuscular Volume 91.6 fL (80.0-98.0); Mean Platelet Volume 11.5 fL (9.4-12.3); Monocytes Absolute Auto 0.6 X10*3/uL (0.1-1.2); Monocytes Percent Auto 12.8 % (2-11); Neutrophils Absolute Auto 3.6 x10*3/uL (2.0-8.3); Neutrophils Percent Auto 76.8 % (45-73); Platelet Count 202 X10*3/uL (160-400); Red Blood Count 2.86 X10*6/uL (4.20-5.50); Red Cell Distribution Width 14.6 % (11.0-16.0); White Blood Count 4.7 X10*3/uL (4.8-10.8)
--- NOTE | 2024-05-09 07:00 | CA_ITS ---
Transthoracic Echocardiogram Patient (Last, First, Middle): Nataliya Forrest, Gender: Female Date of : 1945 Age: 79 Procedure Date: 05/09/2024 Procedure Type: Transthoracic Echocardiogram Location: [facility] Height: 167.64 cm Weight: 57.15 kg BSA: 1.64 m2 Heart Rate: 65 bpm BP: 150 / 42 mmHg [employer] Operations Superintendent: TO Referring MD: Jelani Torres MD Symptoms: ADHF Study Quality: Adequate w/Contrast ECG Rhythm: Sinus Conclusions: - The left ventricular systolic function is normal. The calculated ejection fraction is 66% by biplane method. - Evidence suggests grade II (moderate) diastolic dysfunction. - The basal inferior, mid inferior, and basal inferolateral segments are hypokinetic. - No obvious valvular pathology seen on this study. Findings Procedure Information Contrast agent, definity, is being given per protocol without apparent complications. Left Ventricle Normal left ventricular cavity size. There is normal left ventricular wall thickness. The left ventricular systolic function is normal. The calculated ejection fraction is 66% by biplane method. There is no evidence of regional wall motion abnormalities. Evidence suggests grade II (moderate) diastolic dysfunction. Wall Motion Rest Echo Findings The basal inferior, mid inferior, and basal inferolateral segments are hypokinetic. Atria Both atria are normal in size. Aortic Valve There is a normal trileaflet aortic valve. There is no aortic valve stenosis. There is trace (trivial) aortic valve regurgitation. Mitral Valve There is mild mitral annular calcification. There is trace mitral valve regurgitation. There is no mitral valve stenosis. Pulmonic Valve The pulmonic valve is likely normal. Tricuspid Valve Normal tricuspid valve structure. There is trace tricuspid valve regurgitation. There is no evidence of pulmonary hypertension. Great Vessels The asc aorta is normal in size. Venous The inferior vena cava is normal in size and collapses greater than 50% with inspiration. Pericardium/Pleural There is a trivial pericardial effusion. Prior Study Comparison No significant change compared to prior study dated: 09/28/2023. Wall motion similar on review of prior images. Recommendations, Care & Conclusions No obvious valvular pathology seen on this study. Measurements 2D Linear Measurements IVSd: 0.97 0.6-0.9/0.6-1.0 cm LVIDd: 4.60 3.9-5.3/4.2-5.9 cm LVIDd Index: 2.80 2.4-3.2/2.2-3.1 cm/m2 LVIDs: 2.86 2.0-3.6 cm LVPWd: 0.86 0.7-1.1 cm LA Diam: 2.80 2.7-3.8/3.0-4.0 cm LAIDs Index: 1.71 1.5-2.3 cm/m2 LV Mass: 175.38 67-162/88-224 g LV Mass Index: 106.94 43-95/49-115 g/m2 LVOT Diam: 2.00 3.0+(-)1.3 cm 2D Systolic Function EF 4C: 65.30 >55% EF 2C: 66.80 >55% EF BiP: 65.60 >55% Mitral Valve MV VTI: 0.38 MV Pk Vlad: 1.10 MV Mn Vlad: 0.67 MV Pk Grad: 5.00 MV Mn Grad: 2.00 MV Pk E: 1.06 MV PK A: 0.77 MV Decel Time: 278.00 E/A: 1.40 E'Lateral: 4.35 E'Medial: 4.35 E/E' Med: 24.40 E/E' Lat: 24.40 PHT: 81.00 MVA PHT: 2.72 MVA Continuity: 1.93 Decel [place]: 3.81 Aortic Valve AoV Pk Vlad: 1.89 AoV Mn Vlad: 1.38 AoV VTI: 0.35 AoV Pk Grad: 14.00 Aov Mn Grad: 9.00 CHER Cont.VTI: 2.10 LVOT LVOT Pk Vlad: 1.13 LVOT Mn Vlad: 0.81 LVOT VTI: 0.23 LVOT Pk Grad: 5.00 LVOT Mn Grad: 3.00 LVOT Diam: 2.00 LVOT Area: 3.14 Diastolic Function MV Pk E: 1.06 MV Pk A: 0.77 E/A: 1.40 E'Medial: 4.35 E/E' Med: 24.40 E' Laterial: 4.35 E/E' Lat: 24.40 Right Ventricle TAPSE (mm): 21.90 TVS' Vlad: 11.30 Tricuspid Valve TR Pk Vlad: 2.00 TR Pk Grad: 16.00 RA Press: 3.00 RVSP: 19.00 Great Vessels Aorta Sinus of Valsalva: 2.87 2.0-3.[address] [place]: 2.47 1.7-3.4 cm Ao Asc: 3.10 2.1-3.4 cm Updated in Other Vendor System with Status of Final Dale Gudino MD electronically signed on 05/09/2024 12:30:14 PM with status of Final
[2024-05-09 07:07] LABS: Anion Gap 15 (12-20); Blood Urea Nitrogen 43 mg/dL (9-16); Calcium 9.3 mg/dL (8.4-10.2); Carbon Dioxide 21 mmol/L (22-29); Chloride 106 mmol/L (96-108); Estimated Glomerular Filt Rate 17; Glucose Random 116 mg/dL (60-115); Phosphorus 3.5 mg/dL (2.7-4.5); Potassium 3.7 mmol/L (3.3-5.1); Sodium 138 mmol/L (135-145)
[2024-05-09 07:14] LABS: B Type Natriuretic Peptide 394 pg/mL (<100)
[2024-05-09] MEDS: hydrALAZINE HCl 10 MG TABLET PO (07:37)
[2024-05-09] MEDS: Losartan Potassium 50 MG TABLET 100 MG PO (07:37)
[2024-05-09] MEDS: carvediloL 25 MG TABLET PO ×2 (07:38→22:36)
[2024-05-09] MEDS: Aspirin 81 MG TAB.CHEW PO (07:38)
[2024-05-09] MEDS: Furosemide 20 MG TABLET PO (07:38)
[2024-05-09] MEDS: 0.9 % Sodium Chloride Flush 3 ML SYRINGE IVFLUSH ×3 (07:45→22:40)
[2024-05-09 09:25] LABS: Glucose, Whole Blood 126 mg/dL (60-115)
--- NOTE | 2024-05-09 10:20 | PC.NURSE ---
0915 this rn was notified by GROUP TEACHER to check on pt. pt was helped to bedside commode w 1 assist by GROUP TEACHER but unable to get back to bed w assist d/t generalized weakness, looked pale, required 2 assist, came up and assess pt at bedside. VS taken as BP 187/92 ASH, HR 61, O2 97% on RA. POc 126. Repeated BP122/59, HR 65. MD aware and disccused w son at bedside for possible orthostatic hypotention. Ekg ordered and taken with additional lab work
[2024-05-09 10:23] LABS: Troponin-I High Sensitivity 11.4 ng/L (<3.5-17.0)
--- NOTE | 2024-05-09 10:47 | P.CONCA_ITS ---
History of Present Illness History of Present Illness Date of Service: 05/09/24 Chief complaint: Hypertensive urgency Narrative: This is a cardiology consultation regarding question of VT on telemetry. Patient has Alzheimer's disease. History of hypertension, single kidney, status post nephrectomy for tumor. Apparently blood pressures run high even at home. Currently, admission was because of blood pressure in the 230s and she was admitted to the ICU. And then it seems that she got transferred to the floor. Patient herself has generalized feeling of feeling unwell but no clear complaints like angina or shortness of breath. No previous diagnosis of coronary disease or myocardial infarction or cardiomyopathy or anything along those lines. Discussed with patient's sons at the bedside. It seems that the blood pressure does run high even at home as much as 180s. Review of Systems 2 Review of Systems: Yes all other systems are reviewed and are negative Constitutional: Constitutional: Reports as per HPI and Reports no additional constitutional complaints Eyes: Eyes: Reports as per HPI and Denies no additional eye complaints ENT: Denies system reviewed and no additional complaints, except as documented and Reports as per HPI Cardiovascular: Cardiovascular: Reports as per HPI, Reports no additional cardiovascular complaints, Denies acrocyanosis, Denies cool extremities, Denies chest pain, Denies leg edema, Denies lightheadedness, Denies palpitations and Denies dyspnea Respiratory: Respiratory: Reports as per HPI, Denies no additional respiratory complaints and Denies dyspnea Gastrointestinal: Gastrointestinal: Reports as per HPI and Denies no additional gastrointestinal complaints Genitourinary: Genitourinary: Reports as per HPI Musculoskeletal: Musculoskeletal: Reports no additional musculoskeletal complaints and Reports as per HPI Integumentary/Breasts: Skin/Breast: Reports system reviewed and no additional complaints, except as docu Neurologic: Reports system reviewed and no additional complaints, except as documented and Reports as per HPI Psychiatric: Psychiatric: Reports no additional psychiatric complaints and Reports as per HPI Endocrine: Endocrine: Reports no additional endocrine complaints, Reports as per HPI and Denies palpitations Hematologic/Lymphatic: Hematologic/Lymphatic: Reports no additional hematologic/lymphatic complaints and Reports as per HPI Allergic/Immunologic: Allergic/Immunologic: Reports no additional allergic/immunologic complaints and Reports as per HPI PMF Past Medical History Medical History (Updated 05/09/24 @ 10:49 by Dale Gudino MD) CKD (chronic kidney disease) stage 3, GFR 30-59 ml/min Multifactorial dementia Pulmonary edema Hypertension Syncope Closed head injury Family History Pertinent family history: No pertinent family history Surgical History Surgical History (Updated 05/07/24 @ 16:47 by Namita Hsusein RN) History of kidney removal Social History Social History Household Members: Spouse Housing: House Do you presently have visiting nurse or other home services: Yes (home health services) Alcohol intake: current Alcohol intake frequency: 0-2 drinks per day Comment: Family in room most of the day Patient Tobacco Use Status: Never used Tobacco service: No Meds Allergies Allergy/AdvReac Type Severity Reaction Status Date / Time gluten Allergy Gastrointestinal Verified 05/07/24 08:44 Upset Active Medications: Current Medications Aspirin (Aspirin 81 Mg Tab.Chew) 81 mg PO DAILY [facility] Last Admin: 05/09/24 07:38 Dose: 81 mg Carvedilol (Carvedilol 25 Mg Tablet) 25 mg PO BID [facility]; Protocol Last Admin: 05/09/24 07:38 Dose: 25 mg Furosemide (Furosemide 20 Mg Tablet) 20 mg PO DAILY [facility]; Protocol Last Admin: 05/09/24 07:38 Dose: 20 mg Heparin Sodium (Porcine) (Heparin Sodium,Porcine 5,000 Unit/Ml Vial) 5,000 unit SUBCUT Q12H [facility] Last Admin: 05/09/24 03:00 Dose: Not Given Hydralazine HCl (Hydralazine Hcl 20 Mg/Ml Vial) 10 mg IVPUSH Q6H PRN; Protocol PRN Reason: Systolic >180 Last Admin: 05/08/24 23:47 Dose: 10 mg Hydralazine HCl (Hydralazine Hcl 10 Mg Tablet) 10 mg PO BID [facility]; Protocol Last Admin: 05/09/24 07:37 Dose: 10 mg Losartan Potassium (Losartan Potassium 50 Mg Tablet) 100 mg PO DAILY [facility]; Protocol Last Admin: 05/09/24 07:37 Dose: 100 mg Sodium Chloride (0.9 % Sodium Chloride Flush 3 Ml Syringe) 3 ml IVFLUSH QSHIFT [facility] Last Admin: 05/09/24 07:45 Dose: 3 ml Home Medications ?Medication ?Instructions ?Recorded ?Confirmed ?Last Taken ?Type sertraline 50 mg tablet 50 mg PO DAILY 09/24/23 05/07/24 05/07/24 09:00 History aspirin 81 mg tablet,delayed 81 mg PO DAILY 05/07/24 05/07/24 05/07/24 09:00 History release calcium carbonate 600 mg-vitamin 1 tab PO DAILY 05/07/24 05/07/24 05/07/24 09:00 History D3 10 mcg (400 unit) tablet (Calcium 600 + D(3)) carvedilol 12.5 mg tablet 12.5 mg PO BID 05/07/24 05/07/24 05/07/24 09:00 History ferrous sulfate 325 mg (65 mg 325 mg PO DAILY 05/07/24 05/07/24 05/07/24 09:00 History iron) tablet,delayed release losartan 100 mg tablet 100 mg PO DAILY 05/07/24 05/07/24 05/07/24 09:00 History multivitamin 1 tab PO DAILY 05/07/24 05/07/24 05/07/24 09:00 History Physical Exam 2 Vital Signs: Vital Signs: Last Vital Signs Temp 97.7 F 05/09/24 07:06 Pulse 84 05/09/24 07:06 Resp 18 05/09/24 07:06 BP 174/78 H 05/09/24 07:06 Pulse Ox 100 05/09/24 07:06 O2 Del Method Room Air 05/09/24 07:06 O2 Flow Rate 1.5 05/08/24 00:00 FiO2 35 05/07/24 21:00 BMI result Body Mass Index 20.5 Const: General: comfortable and no acute distress O rientation/consciousness: patient oriented x3 HEENT: Other: Unremarkable Head: Yes normal to inspection Neck: Neck: Yes normal visual inspection Chest: Chest palpation & inspection: normal inspection of the chest Resp: Auscultation: clear to auscultation bilaterally Cardio: Palpation: normal PMI Heart sounds: S1 normal heart sound present, S2 normal heart sound present, no gallops, Murmur heart sound present systolic II/ and no rubs GI: Palpation (GI): Soft to palpation Back/Spine/Pelvis: Other: unremarkable Skin: General skin exam: no rashes or lesions noted Neuro: General: patient oriented x3 Extrem: General: Yes normal to inspection Psych: Mental Status: mental status grossly normal Objective Labs and Meds 05/09/24 06:28 05/09/24 06:28 Lab results: Laboratory Results - last 24 hr 05/08/24 05/08/24 05/09/24 10:09 Unknown 06:28 WBC 4.7 L RBC 2.86 L Hgb 8.3 L Hct 26.2 L MCV 91.6 MCH 29.0 MCHC 31.7 RDW 14.6 Plt Count 202 MPV 11.5 Immature Gran % (Auto) 0.6 H Neut % (Auto) 76.8 H Lymph % (Auto) 7.9 L [place] % (Auto) 12.8 H Eos % (Auto) 1.3 Baso % (Auto) 0.6 Lymph # (Auto) 0.4 L [place] # (Auto) 0.6 Eos # (Auto) 0.1 Baso # (Auto) 0.0 Abs Immat Gran (auto) 0.03 Absolute Neuts (auto) 3.6 Absolute Nucleated RBC 0.000 Nucleated RBC % (auto) 0.0 Sodium 138 Potassium 3.7 Chloride 106 Carbon Dioxide 21 L Anion Gap 15 BUN 43 H Creatinine 2.71 H Estim Creat Clear Calc 15.0 Estimated GFR 17 POC Glucose Random Glucose 116 H Calcium 9.3 Phosphorus 3.5 Magnesium 2.0 Troponin I High Sens B-Natriuretic Peptide 394 H TSH 5.84 H Free T4 1.12 Urine Color Yellow Urine Appearance Clear Urine pH 7.5 Ur Specific [place] 1.010 Urine Protein Negative Urine Glucose (UA) Negative Urine Ketones Negative Urine Blood Negative Urine Nitrite Negative Ur Leukocyte Esterase Negative Urine RBC 0-2 Urine WBC 0-5 Ur Squamous Epith Cells 0-2 Urine Bacteria None Seen Hyaline Casts 0-2 Blood Type O Positive Antibody Screen NEGATIVE 05/09/24 05/09/24 09:21 09:49 WBC RBC Hgb Hct MCV MCH MCHC RDW Plt Count MPV Immature Gran % (Auto) Neut % (Auto) Lymph % (Auto) [place] % (Auto) Eos % (Auto) Baso % (Auto) Lymph # (Auto) [place] # (Auto) Eos # (Auto) Baso # (Auto) Abs Immat Gran (auto) Absolute Neuts (auto) Absolute Nucleated RBC Nucleated RBC % (auto) Sodium Potassium Chloride Carbon Dioxide Anion Gap BUN Creatinine Estim Creat Clear Calc Estimated GFR POC Glucose 126 H Random Glucose Calcium Phosphorus Magnesium Troponin I High Sens 11.4 B-Natriuretic Peptide TSH Free T4 Urine Color Urine Appearance Urine pH Ur Specific [place] Urine Protein Urine Glucose (UA) Urine Ketones Urine Blood Urine Nitrite Ur Leukocyte Esterase Urine RBC Urine WBC Ur Squamous Epith Cells Urine Bacteria Hyaline Casts Blood Type Antibody Screen ECG Interpretation: EKGs suggestive of underlying sinus rhythm at 62/Min and left ventricular hypertrophy with repolarization changes. Assessment and Plan (1) SVT (supraventricular tachycardia): Status: Acute Plan Telemetry was reviewed. On my evaluation, tachycardic rhythm more suggestive of supraventricular origin with possible aberrancy, but not ventricular. Unremarkable high sensitivity troponins. Echocardiogram from September with LVEF of 55-60%. Abnormal diastolic function. Mild mitral annular calcification but otherwise unremarkable. At this time, she is already on beta-blockers and that can be continued. If this is recurrent arrhythmia, then we can reassess and possibly add a calcium channel akin. With regard to the hypertension itself, nephrology can manage due to single kidney as well as chronic kidney disease. Discussed with Dr. Torres. Discussed with family at the bedside. Procedures Date of Service Date of Service: 05/09/24
--- NOTE | 2024-05-09 12:08 | HO.PM.IMPN ---
Subjective Subjective Date of Service: 05/09/24 Interval History: suddenly became weak in both legs and felt lightheaded; no focal/unilateral weakness BP high overnight; PO hydralazine added hx of orthostasis had a long run of SVT early this AM but no telemetry events during episode of weakness Review of Systems Review of Systems: Yes all other systems are reviewed and are negative Physical Exam Vital Signs: Vital Signs: Last Vital Signs Temp 97.2 F 05/09/24 11:40 Pulse 65 05/09/24 11:40 Resp 14 05/09/24 11:40 BP 114/52 L 05/09/24 11:40 Pulse Ox 100 05/09/24 11:40 O2 Del Method Room Air 05/09/24 11:40 O2 Flow Rate 1.5 05/08/24 00:00 FiO2 35 05/07/24 21:00 BMI result Body Mass Index 20.5 Gen: in no acute distress HEENT: sclera anicteric, moist mucus membranes Neck: supple Lungs: clear to auscultation bilaterally Heart: regular rate and rhythm, no murmurs Abd: soft, non-tender, non-distended Ext: no edema Skin: warm/well-perfused Neuro: alert and oriented to self/place, no focal weakness, no pronator drift Psych: appropriate affect Objective Data Active Medications Aspirin (Aspirin 81 Mg Tab.Chew) 81 mg PO DAILY [facility] Last Admin: 05/09/24 07:38 Dose: 81 mg Documented By: RITIKA Carvedilol (Carvedilol 25 Mg Tablet) 25 mg PO BID [facility]; Protocol Last Admin: 05/09/24 07:38 Dose: 25 mg Documented By: RITIKA Furosemide (Furosemide 20 Mg Tablet) 20 mg PO DAILY [facility]; Protocol Last Admin: 05/09/24 07:38 Dose: 20 mg Documented By: RITIKA Heparin Sodium (Porcine) (Heparin Sodium,Porcine 5,000 Unit/Ml Vial) 5,000 unit SUBCUT Q12H [facility] Last Admin: 05/09/24 03:00 Dose: Not Given Documented By: CHAS Non-Admin Reason: Patient Refused Hydralazine HCl (Hydralazine Hcl 20 Mg/Ml Vial) 10 mg IVPUSH Q6H PRN; Protocol PRN Reason: Systolic >180 Last Admin: 05/08/24 23:47 Dose: 10 mg Documented By: CHAS Hydralazine HCl (Hydralazine Hcl 10 Mg Tablet) 10 mg PO BID [facility]; Protocol Last Admin: 05/09/24 07:37 Dose: 10 mg Documented By: RITIKA Losartan Potassium (Losartan Potassium 50 Mg Tablet) 100 mg PO DAILY [facility]; Protocol Last Admin: 05/09/24 07:37 Dose: 100 mg Documented By: RITIKA Sodium Chloride (0.9 % Sodium Chloride Flush 3 Ml Syringe) 3 ml IVFLUSH QSHIFT [facility] Last Admin: 05/09/24 07:45 Dose: 3 ml Documented By: RITIKA Labs 05/09/24 06:28 05/09/24 06:28 Labs: Laboratory Results - last 24 hr 05/08/24 05/08/24 05/09/24 10:09 Unknown 06:28 MCV 91.6 MCH 29.0 MCHC 31.7 RDW 14.6 Plt Count 202 MPV 11.5 Immature Gran % (Auto) 0.6 H Neut % (Auto) 76.8 H Lymph % (Auto) 7.9 L [place] % (Auto) 12.8 H Eos % (Auto) 1.3 Baso % (Auto) 0.6 Lymph # (Auto) 0.4 L [place] # (Auto) 0.6 Eos # (Auto) 0.1 Baso # (Auto) 0.0 Abs Immat Gran (auto) 0.03 Absolute Neuts (auto) 3.6 Absolute Nucleated RBC 0.000 Nucleated RBC % (auto) 0.0 Anion Gap 15 Estim Creat Clear Calc 15.0 Estimated GFR 17 POC Glucose Random Glucose 116 H Calcium 9.3 Phosphorus 3.5 Magnesium 2.0 Troponin I High Sens B-Natriuretic Peptide 394 H Free T4 1.12 Urine Color Yellow Urine Appearance Clear Urine pH 7.5 Ur Specific [place] 1.010 Urine Protein Negative Urine Glucose (UA) Negative Urine Ketones Negative Urine Blood Negative Urine Nitrite Negative Ur Leukocyte Esterase Negative Urine RBC 0-2 Urine WBC 0-5 Ur Squamous Epith Cells 0-2 Urine Bacteria None Seen Hyaline Casts 0-2 05/09/24 05/09/24 09:21 09:49 MCV MCH MCHC RDW Plt Count MPV Immature Gran % (Auto) Neut % (Auto) Lymph % (Auto) [place] % (Auto) Eos % (Auto) Baso % (Auto) Lymph # (Auto) [place] # (Auto) Eos # (Auto) Baso # (Auto) Abs Immat Gran (auto) Absolute Neuts (auto) Absolute Nucleated RBC Nucleated RBC % (auto) Anion Gap Estim Creat Clear Calc Estimated GFR POC Glucose 126 H Random Glucose Calcium Phosphorus Magnesium Troponin I High Sens 11.4 B-Natriuretic Peptide Free T4 Urine Color Urine Appearance Urine pH Ur Specific [place] Urine Protein Urine Glucose (UA) Urine Ketones Urine Blood Urine Nitrite Ur Leukocyte Esterase Urine RBC Urine WBC Ur Squamous Epith Cells Urine Bacteria Hyaline Casts Assessment and Plan (1) SVT (supraventricular tachycardia): Status: Acute (2) Hypertensive emergency: Status: Acute Plan d3 79yo F with HTN, 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, CKD4, dementia, HFpEF presenting with acute dyspnea and diuresed; had HTN emergency and admitted to ICU for nicardipine drip; restarted home carvedilol + losartan, also started on HCTZ, and stepped down to telemetry 05/08 HTN emergency orthostatic HTN - now on losartan, carvedilol, furosemide; hold hydralazine - Nephrology consultation JANEY/CKD4 - Nephrology consultation, MR of kidney given complex cyst noted on prior US 09/26/23 SVT - troponin low, Cardiology consulted, continue carvedilol, TTE pending VTE ppx - UFH dispo - already planned to move into [facility] but will need PT eval prior In my clinical judgment, the patient requires continued inpatient hospitalization for the following reasons: uncontrolled BP, JANEY, SVT Total time managing care of this patient today: 45 minutes. Quality Stroke Does the patient have a stroke diagnosis?: No VTE Prior VTE?: No VTE Risk Level:: Medical - low VTE Device Contraindication: N/A - Device Ordered VTE Drug Contraindication: N/A - Med Ordered
[2024-05-09 12:33] LABS: Immature Retic Fraction 26.8 % (3.0-15.9); Retic HGB Equivalent 30.2 pg (30.0-35.0); Reticulocyte Percent 2.5 % (0.5-1.8); Reticulocytes Absolute 0.071 X10*6/uL (0.026-0.095)
[2024-05-09 12:46] LABS: Iron 15 mcg/dL (30-160); Lactate Dehydrogenase 210 U/L (122-220); Percent Iron Saturation 5 % (15-50); Total Iron Binding Capacity 294 mcg/dL (228-428); Unsaturated Iron Binding 279 ug/dL
[2024-05-09 13:00] LABS: Ferritin 27 ng/mL (10-250)
[2024-05-09 13:35] LABS: Troponin-I High Sensitivity 11.1 ng/L (<3.5-17.0)
[2024-05-09 14:00] LABS: Vitamin B12 266 pg/mL (200-900)
--- NOTE | 2024-05-09 14:18 | PM.CNNEP ---
History of Present Illness Reason for Consult Consult date: 05/09/24 Chief Complaint Chief complaint: Hypertensive urgency History of Present Illness Narrative: 79-year-old elderly lady with past medical history of hypertension, single kidney (s/p left nephrectomy for tumor), early dementia had presented to the hospital as her is being he had at the ER overflow due to advanced Alzheimer's disease. Her blood pressure was found to be in 230 systolic so MICU was consulted for admission. According to the son who is her POA her home blood pressure has been ranging around 180s for the past month, she is on carvedilol and losartan 100 mg daily at home which she has been taking. She was put on amlodipine in the past but it caused lower extremity swelling so she stopped taking it She has been transferred to the floor. Blood pressure is suboptimal. She had being evaluated for hypertension and underlying chronic kidney disease. The ultrasonogram done few months ago showed a cyst on the right midpole. She has a solitary kidney. Review of Systems Constitutional: Denies fever(s) and Denies weight loss Cardiovascular: Denies chest pain Respiratory: Denies cough and Denies hemoptysis Gastrointestinal: Denies abdominal pain, Denies diarrhea and Denies nausea Musculoskeletal: Denies back pain Denies focal weakness PMFSH Past Medical History Medical History (Updated 05/09/24 @ 14:21 by Jeff Ruvalcaba MD) CKD (chronic kidney disease) stage 3, GFR 30-59 ml/min Multifactorial dementia Pulmonary edema Hypertension Syncope Closed head injury Surgical History Surgical History (Updated 05/07/24 @ 16:47 by Namita Hussein RN) History of kidney removal Social History Social History Household Members: Spouse Housing: House Do you presently have visiting nurse or other home services: Yes (home health services) Alcohol intake: current Alcohol intake frequency: 0-2 drinks per day Comment: Family in room most of the day Patient Tobacco Use Status: Never used Tobacco service: No Meds Allergies Allergy/AdvReac Type Severity Reaction Status Date / Time gluten Allergy Gastrointestinal Verified 05/07/24 08:44 Upset Active Medications: Current Medications Aspirin (Aspirin 81 Mg Tab.Chew) 81 mg PO DAILY [facility] Last Admin: 05/09/24 07:38 Dose: 81 mg Carvedilol (Carvedilol 25 Mg Tablet) 25 mg PO BID [facility]; Protocol Last Admin: 05/09/24 07:38 Dose: 25 mg Furosemide (Furosemide 20 Mg Tablet) 20 mg PO DAILY [facility]; Protocol Last Admin: 05/09/24 07:38 Dose: 20 mg Heparin Sodium (Porcine) (Heparin Sodium,Porcine 5,000 Unit/Ml Vial) 5,000 unit SUBCUT Q12H [facility] Last Admin: 05/09/24 03:00 Dose: Not Given Hydralazine HCl (Hydralazine Hcl 20 Mg/Ml Vial) 10 mg IVPUSH Q6H PRN; Protocol PRN Reason: Systolic >180 Last Admin: 05/08/24 23:47 Dose: 10 mg Hydralazine HCl (Hydralazine Hcl 10 Mg Tablet) 10 mg PO BID [facility]; Protocol Last Admin: 05/09/24 07:37 Dose: 10 mg Losartan Potassium (Losartan Potassium 50 Mg Tablet) 100 mg PO DAILY [facility]; Protocol Last Admin: 05/09/24 07:37 Dose: 100 mg Sodium Chloride (0.9 % Sodium Chloride Flush 3 Ml Syringe) 3 ml IVFLUSH QSHIFT [facility] Last Admin: 05/09/24 07:45 Dose: 3 ml Home Medications ?Medication ?Instructions ?Recorded ?Confirmed ?Last Taken ?Type sertraline 50 mg tablet 50 mg PO DAILY 09/24/23 05/07/24 05/07/24 09:00 History aspirin 81 mg tablet,delayed 81 mg PO DAILY 05/07/24 05/07/24 05/07/24 09:00 History release calcium carbonate 600 mg-vitamin 1 tab PO DAILY 05/07/24 05/07/24 05/07/24 09:00 History D3 10 mcg (400 unit) tablet (Calcium 600 + D(3)) carvedilol 12.5 mg tablet 12.5 mg PO BID 05/07/24 05/07/24 05/07/24 09:00 History ferrous sulfate 325 mg (65 mg 325 mg PO DAILY 05/07/24 05/07/24 05/07/24 09:00 History iron) tablet,delayed release losartan 100 mg tablet 100 mg PO DAILY 05/07/24 05/07/24 05/07/24 09:00 History multivitamin 1 tab PO DAILY 05/07/24 05/07/24 05/07/24 09:00 History Physical Exam Vital Signs: Last Vital Signs Temp 97.2 F 05/09/24 11:40 Pulse 65 05/09/24 11:40 Resp 14 05/09/24 11:40 BP 114/52 L 05/09/24 11:40 Pulse Ox 100 05/09/24 11:40 O2 Del Method Room Air 05/09/24 11:40 O2 Flow Rate 1.5 05/08/24 00:00 FiO2 35 05/07/24 21:00 BMI result Body Mass Index 20.5 Const General: comfortable; No acute distress Orientation/consciousness: patient oriented x3 Eyes General: appearance normal, both eyes and all related structures Visual Meneses: normal visual meneses by confrontation Neck Neck: Yes supple and Yes no JVD Resp Effort & Inspection: normal respiratory effort and respiratory effort not decreased Auscultation: rhonchi Cardio Palpation: no palpable S3 and no palpable S4 Heart sounds: no rubs GI Inspection: Yes normal to inspection Palpation (GI): Soft to palpation Percussion: Yes normal to percussion Auscultation: normal bowel sounds General: Yes no CVA tenderness Back/Spine/Pelvis Back: no CVA tenderness Skin General skin exam: no petechiae and no purpura Neuro General: patient oriented x3 and no focal motor deficits Extrem General: No clubbing and No edema Results Lab Results 05/09/24 06:28 05/09/24 06:28 Lab results: Chemistry 05/07/24 05/08/24 05/09/24 09:32 04:31 06:28 Sodium 140 142 138 Potassium 4.2 3.3 D 3.7 Carbon Dioxide 21 L 24 21 L BUN 20 H 27 H 43 H Creatinine 2.01 H 2.54 H 2.71 H Calcium 8.7 9.5 D 9.3 Phosphorus 3.7 3.5 Hematology 05/07/24 05/08/24 05/09/24 09:32 04:31 06:28 WBC 4.2 L 4.8 4.7 L Hgb 8.1 L D 7.6 L 8.3 L Plt Count 175 195 202 Urinalysis 05/08/24 Unknown Urine Color Yellow Urine Appearance Clear Urine pH 7.5 Ur Specific [place] 1.010 Urine Protein Negative Urine Glucose (UA) Negative Urine Ketones Negative Urine Blood Negative Urine Nitrite Negative Ur Leukocyte Esterase Negative Urine RBC 0-2 Urine WBC 0-5 Ur Squamous Epith Cells 0-2 Hyaline Casts 0-2 Assessment and Plan (1) Hypertensive urgency: Status: Acute (2) CKD (chronic kidney disease) stage 4, GFR 15-29 ml/min: Status: Acute (3) Solitary kidney, acquired: Status: Acute (4) Anemia due to chronic kidney disease: Status: Acute Plan Elderly woman with a history of stage 4 chronic kidney disease in the setting of longstanding hypertension and solitary right kidney. Status post left nephrectomy for renal cell carcinoma. Right kidney reveals a mid pole cyst which was reported complex in nature. Doppler of renal artery was not suggestive of renal artery stenosis Recommendation Evaluate the right renal cyst. Since her creatinine is 2.71 I would avoid IV contrast . Can obtain MRI of the kidney. Optimize blood pressure. Agree with current antihypertensive medications Can increased oral hydralazine. Goal is to achieve target systolic blood pressure of 140 to 160 mm Hg Avoid rapid drops in blood pressure and rapidly active in antihypertensive agents. Monitor renal function Check iron studies. Once the blood pressure is optimized we will re-evaluate her for erythropoietin replacement therapy to correct anemia. She will follow along with the team. Thank you Procedures Date of Service Date of Service: 05/09/24
[2024-05-09] MEDS: LORazepam 2 MG/ML VIAL 0.5 MG IVPUSH (14:53)
[2024-05-09] MEDS: gadobutroL 7.5 ML VIAL IVPUSH (15:37)
[2024-05-09] MEDS: Heparin Sodium,Porcine 5,000 UNIT/ML VIAL 5000 UNIT SUBCUT (15:50)
[2024-05-10] VITALS (13 sets, daily range): BP systolic 92–158; BP diastolic 48–76; PULSE 60–77; RESP 15–20; TEMP 36.1–36.9; O2SAT 98–100
[2024-05-10] MEDS: Heparin Sodium,Porcine 5,000 UNIT/ML VIAL 5000 UNIT SUBCUT ×2 (03:43→14:17)
[2024-05-10 06:58] LABS: MANUAL DIFF FLAG NO
[2024-05-10 07:10] LABS: Basophils Percent Auto 1.1 % (0-2); Eosinophils Absolute Auto 0.2 X10*3/uL (0.0-0.4); Eosinophils Percent Auto 4.9 % (0-4); Hematocrit 26.3 % (37.0-47.0); Imm Gran Abs Auto 0.02 X10*3/uL (0.00-0.03); Imm Gran Pct Auto 0.5 % (0.0-0.4); Lymphocytes Percent Auto 27.5 % (20-40); Mean Corpuscular HGB Conc 30.4 g/dl (31.0-35.0); Mean Corpuscular Hemoglobin 28.6 pg (27.0-33.0); Mean Corpuscular Volume 93.9 fL (80.0-98.0); Mean Platelet Volume 11.6 fL (9.4-12.3); Monocytes Absolute Auto 0.6 X10*3/uL (0.1-1.2); Monocytes Percent Auto 16.9 % (2-11); Neutrophils Absolute Auto 1.8 x10*3/uL (2.0-8.3); Neutrophils Percent Auto 49.1 % (45-73); Platelet Count 188 X10*3/uL (160-400); Red Cell Distribution Width 14.9 % (11.0-16.0); White Blood Count 3.7 X10*3/uL (4.8-10.8)
[2024-05-10 07:35] LABS: Anion Gap 14 (12-20); Blood Urea Nitrogen 52 mg/dL (9-16); Calcium 9.3 mg/dL (8.4-10.2); Carbon Dioxide 23 mmol/L (22-29); Chloride 108 mmol/L (96-108); Glucose Random 93 mg/dL (60-115); Magnesium 2.4 mg/dL (1.6-2.6); Phosphorus 5.8 mg/dL (2.7-4.5); Potassium 3.5 mmol/L (3.3-5.1); Sodium 141 mmol/L (135-145)
[2024-05-10 07:38] LABS: B Type Natriuretic Peptide 123 pg/mL (<100)
[2024-05-10 07:46] LABS: Estimated Glomerular Filt Rate 17
[2024-05-10] MEDS: Aspirin 81 MG TAB.CHEW PO (09:48)
[2024-05-10] MEDS: carvediloL 25 MG TABLET PO ×2 (09:49→21:28)
[2024-05-10] MEDS: Furosemide 20 MG TABLET PO (09:49)
[2024-05-10] MEDS: 0.9 % Sodium Chloride Flush 3 ML SYRINGE IVFLUSH ×2 (09:56→14:18)
--- NOTE | 2024-05-10 10:14 | PM.PNCARD ---
Subjective Subjective Date of Service: 05/10/24 Interval history: Patient herself has no complaints. She states she feels fine. Son is at the bedside. Review of Systems Review of Systems Yes all other systems are reviewed and are negative Constitutional: Reports as per HPI and Reports no additional constitutional complaints Eyes: Reports as per HPI and Denies no additional eye complaints Denies system reviewed and no additional complaints, except as documented and Reports as per HPI Cardiovascular: Reports as per HPI, Reports no additional cardiovascular complaints, Denies acrocyanosis, Denies cool extremities, Denies chest pain, Denies leg edema, Denies lightheadedness, Denies palpitations and Denies dyspnea Respiratory: Reports as per HPI, Denies no additional respiratory complaints and Denies dyspnea Gastrointestinal: Reports as per HPI and Denies no additional gastrointestinal complaints Genitourinary: Reports as per HPI Musculoskeletal: Reports no additional musculoskeletal complaints and Reports as per HPI Skin/Breast: Reports system reviewed and no additional complaints, except as docu Reports system reviewed and no additional complaints, except as documented and Reports as per HPI Psychiatric: Reports no additional psychiatric complaints and Reports as per HPI Endocrine: Reports no additional endocrine complaints, Reports as per HPI and Denies palpitations Hematologic/Lymphatic: Reports no additional hematologic/lymphatic complaints and Reports as per HPI Allergic/Immunologic: Reports no additional allergic/immunologic complaints and Reports as per HPI Physical Exam Vital Signs: Last Vital Signs Temp 97.0 F 05/10/24 07:55 Pulse 66 05/10/24 07:55 Resp 18 05/10/24 07:55 BP 146/76 H 05/10/24 07:55 Pulse Ox 100 05/10/24 07:55 O2 Del Method Room Air 05/10/24 07:55 O2 Flow Rate 1.5 05/08/24 00:00 BMI result Body Mass Index 20.5 Const General: comfortable and no acute distress Orientation/consciousness: patient oriented x3 HEENT Other: Unremarkable Head: Yes normal to inspection Neck Neck: Yes normal visual inspection Chest Chest palpation & inspection: normal inspection of the chest Resp Auscultation: clear to auscultation bilaterally Cardio Palpation: normal PMI Heart sounds: S1 normal heart sound present, S2 normal heart sound present, no gallops, Murmur heart sound present systolic II/ and at the right sternal border and no rubs GI Palpation (GI): Soft to palpation Back/Spine/Pelvis Other: unremarkable Skin General skin exam: no rashes or lesions noted Neuro General: patient oriented x3 Extrem General: Yes normal to inspection Psych Mental Status: mental status grossly normal Objective Labs and Meds 05/10/24 06:31 05/10/24 06:31 Lab results: Laboratory Results - last 24 hr 05/09/24 05/09/24 05/09/24 06:28 09:49 12:41 WBC RBC Hgb Hct MCV MCH MCHC RDW Plt Count MPV Immature Gran % (Auto) Neut % (Auto) Lymph % (Auto) [place] % (Auto) Eos % (Auto) Baso % (Auto) Lymph # (Auto) [place] # (Auto) Eos # (Auto) Baso # (Auto) Abs Immat Gran (auto) Absolute Neuts (auto) Absolute Nucleated RBC Nucleated RBC % (auto) Absolute Retic 0.071 Percent Retic 2.5 H Immature Retic Fraction 26.8 H Retic Hgb Equivalent 30.2 Sodium Potassium Chloride Carbon Dioxide Anion Gap BUN Creatinine Estim Creat Clear Calc Estimated GFR Random Glucose Calcium Phosphorus Magnesium Iron 15 L TIBC 294 % Saturation 5 L Unsat Iron Binding 279 Ferritin 27 Lactate Dehydrogenase 210 Troponin I High Sens 11.4 11.1 B-Natriuretic Peptide Vitamin B12 266 Folate 14.0 05/10/24 06:31 WBC 3.7 L RBC 2.80 L Hgb 8.0 L Hct 26.3 L MCV 93.9 MCH 28.6 MCHC 30.4 L RDW 14.9 Plt Count 188 MPV 11.6 Immature Gran % (Auto) 0.5 H Neut % (Auto) 49.1 Lymph % (Auto) 27.5 [place] % (Auto) 16.9 H Eos % (Auto) 4.9 H Baso % (Auto) 1.1 Lymph # (Auto) 1.0 L [place] # (Auto) 0.6 Eos # (Auto) 0.2 Baso # (Auto) 0.0 Abs Immat Gran (auto) 0.02 Absolute Neuts (auto) 1.8 L Absolute Nucleated RBC 0.000 Nucleated RBC % (auto) 0.0 Absolute Retic Percent Retic Immature Retic Fraction Retic Hgb Equivalent Sodium 141 Potassium 3.5 Chloride 108 Carbon Dioxide 23 Anion Gap 14 BUN 52 H Creatinine 2.72 H Estim Creat Clear Calc 15.0 Estimated GFR 17 Random Glucose 93 Calcium 9.3 Phosphorus 5.8 H Magnesium 2.4 Iron TIBC % Saturation Unsat Iron Binding Ferritin Lactate Dehydrogenase Troponin I High Sens B-Natriuretic Peptide 123 H Vitamin B12 Folate Imaging Radiologist's impression: Impressions Abdomen MRI 05/09/24 15:13 IMPRESSION: Status post prior left nephrectomy. 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 No dedicated follow-up imaging is required. Additional non-enhancing/hypoenhancing subcentimeter cortical lesion in the anterior cortex of the lower pole of the right kidney without definite correlate on T2-weighted images is too small to characterize and may also relate to a minimally complex cyst. Small hepatic hemangiomas. Subcentimeter pancreatic cystic lesion. Follow-up imaging in 2 years is recommended. Small bilateral pleural effusions with bibasilar atelectasis Electronically signed by: Ayaz Zepeda MD 05/10/2024 09:37 AM EDT RP Progress Note: A&P Assessment and plan (1) SVT (supraventricular tachycardia): Status: Acute (2) CKD (chronic kidney disease) stage 4, GFR 15-29 ml/min: Status: Acute Plan No further arrhythmias on telemetry. In the echocardiogram, LVEF is 66%. Moderate diastolic dysfunction. Inferior/inferolateral hypokinesis. Findings discussed with son at the bedside. Clinically, she has got no symptoms like angina and also has significant renal issues. In this instance, do not really recommend workup as there is high risk of contrast induced nephropathy with catheterization. That will make her dialysis dependent. Son totally agrees with this plan. He would also like to stay conservative as much. Time Spent With Patient Time: Total time managing care of this patient today ____ minutes. Progress Note: Quality Stroke Does the patient have a stroke diagnosis?: No Procedures Date of Service Date of Service: 05/10/24
--- NOTE | 2024-05-10 10:36 | P.PNIM_ITS ---
Subjective Subjective Date of Service: 05/10/24 Interval History: denies lightheadedness BP 140s/60s-70s now no chest pain, dyspnea, or edema Review of Systems Review of Systems: Yes all other systems are reviewed and are negative Physical Exam 2 Vital Signs: Vital Signs: Last Vital Signs Temp 97.0 F 05/10/24 07:55 Pulse 66 05/10/24 07:55 Resp 18 05/10/24 07:55 BP 146/76 H 05/10/24 07:55 Pulse Ox 100 05/10/24 07:55 O2 Del Method Room Air 05/10/24 07:55 O2 Flow Rate 1.5 05/08/24 00:00 BMI result Body Mass Index 20.5 Gen: in no acute distress HEENT: sclera anicteric, moist mucus membranes Neck: supple Lungs: clear to auscultation bilaterally Heart: regular rate and rhythm, no murmurs Abd: soft, non-tender, non-distended Ext: no edema Skin: warm/well-perfused Neuro: alert and oriented to self/place, no focal weakness, no pronator drift Psych: appropriate affect Objective Data Active Medications Aspirin (Aspirin 81 Mg Tab.Chew) 81 mg PO DAILY [facility] Last Admin: 05/10/24 09:48 Dose: 81 mg Documented By: MENDEL Carvedilol (Carvedilol 25 Mg Tablet) 25 mg PO BID [facility]; Protocol Last Admin: 05/10/24 09:49 Dose: 25 mg Documented By: MENDEL Furosemide (Furosemide 20 Mg Tablet) 20 mg PO DAILY [facility]; Protocol Last Admin: 05/10/24 09:49 Dose: 20 mg Documented By: MENDEL Heparin Sodium (Porcine) (Heparin Sodium,Porcine 5,000 Unit/Ml Vial) 5,000 unit SUBCUT Q12H [facility] Last Admin: 05/10/24 03:43 Dose: 5,000 unit Documented By: AMERICO Hydralazine HCl (Hydralazine Hcl 20 Mg/Ml Vial) 10 mg IVPUSH Q6H PRN; Protocol PRN Reason: Systolic >180 Last Admin: 05/08/24 23:47 Dose: 10 mg Documented By: CHAS Hydralazine HCl (Hydralazine Hcl 10 Mg Tablet) 10 mg PO BID [facility]; Protocol Last Admin: 05/09/24 07:37 Dose: 10 mg Documented By: RITIKA Losartan Potassium (Losartan Potassium 50 Mg Tablet) 100 mg PO DAILY [facility]; Protocol Last Admin: 05/10/24 09:49 Dose: 100 mg Documented By: MENDEL Sodium Chloride (0.9 % Sodium Chloride Flush 3 Ml Syringe) 3 ml IVFLUSH QSHIFT [facility] Last Admin: 05/10/24 09:56 Dose: 3 ml Documented By: MENDEL Labs 05/10/24 06:31 05/10/24 06:31 Labs: Laboratory Results - last 24 hr 05/09/24 05/09/24 05/10/24 06:28 12:41 06:31 MCV 93.9 MCH 28.6 MCHC 30.4 L RDW 14.9 Plt Count 188 MPV 11.6 Immature Gran % (Auto) 0.5 H Neut % (Auto) 49.1 Lymph % (Auto) 27.5 [place] % (Auto) 16.9 H Eos % (Auto) 4.9 H Baso % (Auto) 1.1 Lymph # (Auto) 1.0 L [place] # (Auto) 0.6 Eos # (Auto) 0.2 Baso # (Auto) 0.0 Abs Immat Gran (auto) 0.02 Absolute Neuts (auto) 1.8 L Absolute Nucleated RBC 0.000 Nucleated RBC % (auto) 0.0 Absolute Retic 0.071 Percent Retic 2.5 H Immature Retic Fraction 26.8 H Retic Hgb Equivalent 30.2 Anion Gap 14 Estim Creat Clear Calc 15.0 Estimated GFR 17 Random Glucose 93 Calcium 9.3 Phosphorus 5.8 H Magnesium 2.4 Iron 15 L TIBC 294 % Saturation 5 L Unsat Iron Binding 279 Ferritin 27 Lactate Dehydrogenase 210 Troponin I High Sens 11.1 B-Natriuretic Peptide 123 H Vitamin B12 266 Folate 14.0 Impressions Abdomen MRI 05/09/24 15:13 IMPRESSION: Status post prior left nephrectomy. 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 No dedicated follow-up imaging is required. Additional non-enhancing/hypoenhancing subcentimeter cortical lesion in the anterior cortex of the lower pole of the right kidney without definite correlate on T2-weighted images is too small to characterize and may also relate to a minimally complex cyst. Small hepatic hemangiomas. Subcentimeter pancreatic cystic lesion. Follow-up imaging in 2 years is recommended. Small bilateral pleural effusions with bibasilar atelectasis Electronically signed by: Ayaz Zepeda MD 05/10/2024 09:37 AM EDT TTE 05/09/24 - The left ventricular systolic function is normal. The calculated ejection fraction is 66% by biplane method. - Evidence suggests grade II (moderate) diastolic dysfunction. - The basal inferior, mid inferior, and basal inferolateral segments are hypokinetic. - No obvious valvular pathology seen on this study. 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, CKD4, dementia, HFpEF presenting with acute dyspnea and diuresed; had HTN emergency and admitted to ICU for nicardipine drip; restarted home carvedilol + losartan, also started on HCTZ, and stepped down to telemetry 05/08 HTN emergency orthostatic HTN - now on losartan, carvedilol, furosemide to give if SBP 150+ - Nephrology followed renal cyst [5 cm complex in lateral midpole of R kidney] - likely Bosniak type 2, no f/u required; additional subcentimeter lesion in lower pole too small to characterize, may relate to minimally complex cyst subcentimeter pancreatic cyst - consider f/u imaging in 2 yr JANEY/CKD4 - Nephrology consultation, SCr appears to have plateaued, recheck in AM SVT - troponin low, Cardiology consulted, continue carvedilol. TTE with findings of ischemic caridomyopathy but invasive treatment not recommended by Cardiology VTE ppx - UFH dispo - planned to move to [place] but will have PT eval as she may require SVT instead In my clinical judgment, the patient requires continued inpatient hospitalization for the following reasons: labile BP, JANEY Total time managing care of this patient today: 45 minutes. Quality Stroke Does the patient have a stroke diagnosis?: No VTE Prior VTE?: No VTE Risk Level:: Medical - low VTE Device Contraindication: N/A - Device Ordered VTE Drug Contraindication: N/A - Med Ordered
[2024-05-10] MEDS: Midodrine HCl 2.5 MG TABLET PO (12:20)
[2024-05-10] MEDS: Sertraline HCL 50 MG TABLET PO (12:20)
[2024-05-10] MEDS: Folic Acid 1 MG TABLET PO (12:20)
[2024-05-10] MEDS: Multivitamin TABLET 1 TAB PO (12:20)
[2024-05-10 12:26] LABS: C Reactive Protein 0.29 mg/dL (< or = 0.50)
--- NOTE | 2024-05-10 12:44 | MHC.CM.PN ---
Addendum entered by Clementina Villar RN 05/10/24 14:28: PT ACCEPTED AT [facility] PER LIAISON ELLA AND REQUESTED CM REACH OUT TO DNS ADINA RIOS AT [phone], CM ATTEMPTED TO CONTACT ADINA AT 2:20PM, NO ANSWER AND DETAILED MESSAGE LEFT, CM WILL FOLLOW UP IN AM IF NO RESPONSE BY END OF DAY. PT AND SON AKOSUA AWARE. Original Note: EMR REVIEWED, P.T. RECOMMENDING STR, CM MET W/PT'S SON AKOSUA AT BEDSIDE, PER PREVIOUS DISCUSSION CM WILL ATTMEPT TO GET PT IN TO [facility] IN [place] WHERE PT'S WENT FOR LTC ON TUESDAY 05/08, PT'S PLAN IS FOR STR AND THEN SHE WILL BE MOVING INTO AN [place] NEAR SON [facility]. CM TO EMAIL ELLA IN ADMISSIONS AT [email or web address] W/REFERRAL THEY DO NOT ANSWER ON FACEBOOK.
[2024-05-10 12:49] LABS: Procalcitonin 0.19 ng/mL
[2024-05-10] MEDS: 0.9 % Sodium Chloride 500 ML 125 ML IVCONT (12:52)
[2024-05-10 13:11] LABS: Lactic Acid 1.5 mmol/L (0.5-2.0)
[2024-05-10] MEDS: Losartan Potassium 50 MG TABLET 100 MG PO (14:10)
--- NOTE | 2024-05-10 14:18 | PM.EVENT ---
Event Note Date of Service: 05/10/24 Event Note: Pt drowsy, BP 92/52 Had just had 17 beats of SVT This AM got 20 mg furosemide, 100 mg losartan, 25 mg carvedilol Awake/alert but c/o R-sided neck pain, same as yesterday SUspect due to orthostasis Will change hold parameters on losartan + carevdilol; to give only if SBP 150 or greater Will give 500 mL NS over 4hr Will give 2.5 mg midodrine Continue to monitor; Nephrology following BP improved to 122/58 Time Spent With Patient Time: Total time managing care of this patient today ____ minutes.
--- NOTE | 2024-05-10 14:23 | P.PNNP_ITS ---
Subjective Subjective Date of Service: 05/10/24 Interval history: 79-year-old elderly lady with medical history of hypertension, single kidney (s/p left nephrectomy for tumor), early dementia presented to ED for SBP>230. on carvedilol 25mg BID and losartan 100mg daily at home, BPs were not well controlled. She being evaluated for hypertension and underlying chronic kidney disease. MRI of right kidney shows benign cyst and cortical lesion, no dedicated follow up recommended per radiology. currently taking carvedilol 25mg BID PO, losartan 100mg PO daily, and furosemide 20mg PO daily per bedside RN, pt recieved dose of IV lasix this a.m. blood pressures have been improving, though have episode of low BP late this morning (92/52), pt felt dyspneic and dizzy getting out of bed to the chair. she reports this has since resolved. most recent BP 105/57 pt denies current shortness of breath, chest pain, swelling, dizziness, headaches, and denies urinary symptoms including dysuria, difficulty emptying bladder, flank pain, blood in her urine. Physical Exam 2 Vital Signs: Vital Signs: Last Vital Signs Temp 97.5 F 05/10/24 11:10 Pulse 64 05/10/24 11:10 Resp 18 05/10/24 11:10 BP 105/57 L 05/10/24 12:29 Pulse Ox 99 05/10/24 11:10 O2 Del Method Room Air 05/10/24 11:10 O2 Flow Rate 1.5 05/08/24 00:00 BMI result Body Mass Index 20.5 Const: General: comfortable and no acute distress O rientation/consciousness: oriented to person, oriented to place and oriented to time Neck: Neck: Yes no JVD Resp: Effort & Inspection: able to speak in complete sentences A uscultation: clear to auscultation bilaterally Cardio: Jugular venous distension: no JVD Rate: regular rate Rhythm: r egular rhythm Heart sounds: S1 normal heart sound present, S2 normal heart sound present and Murmur heart sound present GI: Palpation (GI): Soft to palpation Rectal Exam - Female: No tenderness : General: Yes no CVA tenderness Back/Spine/Pelvis: Back: no CVA tenderness Skin: Rashes: no rashes Neuro: General: oriented to person, oriented to place and oriented to time Extrem: General: Yes normal to inspection, No edema and No pedal edema Objective Data Labs 05/10/24 06:31 05/10/24 06:31 Labs: Laboratory Results - last 24 hr 05/10/24 05/10/24 06:31 12:57 WBC 3.7 L RBC 2.80 L Hgb 8.0 L Hct 26.3 L MCV 93.9 MCH 28.6 MCHC 30.4 L RDW 14.9 Plt Count 188 MPV 11.6 Immature Gran % (Auto) 0.5 H Neut % (Auto) 49.1 Lymph % (Auto) 27.5 [place] % (Auto) 16.9 H Eos % (Auto) 4.9 H Baso % (Auto) 1.1 Lymph # (Auto) 1.0 L [place] # (Auto) 0.6 Eos # (Auto) 0.2 Baso # (Auto) 0.0 Abs Immat Gran (auto) 0.02 Absolute Neuts (auto) 1.8 L Absolute Nucleated RBC 0.000 Nucleated RBC % (auto) 0.0 Sodium 141 Potassium 3.5 Chloride 108 Carbon Dioxide 23 Anion Gap 14 BUN 52 H Creatinine 2.72 H Estim Creat Clear Calc 15.0 Estimated GFR 17 Random Glucose 93 Lactic Acid 1.5 Calcium 9.3 Phosphorus 5.8 H Magnesium 2.4 C-Reactive Protein 0.29 B-Natriuretic Peptide 123 H Procalcitonin 0.19 Imaging MRI - abdomen: Radiologist's impression: KIDNEYS: Status post left nephrectomy. There is a minimally complex exophytic cyst with thin septations in the lateral midpole of the right kidney measuring up to 5 cm. No enhancing nodular component. 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 Additional non-enhancing/hypoenhancing subcentimeter cortical lesion in the anterior cortex of the lower pole of the right kidney without definite correlate on T2-weighted images is too small to characterize and may also relate to a minimally complex cyst, 12:61. Right kidney otherwise demonstrates normal size and enhancement. No hydronephrosis. Procedures Date of Service Date of Service: 05/10/24 Assessment & Plan Assessment and plan (1) Hypertensive urgency: Status: Acute (2) CKD (chronic kidney disease) stage 4, GFR 15-29 ml/min: Status: Acute (3) Solitary kidney, acquired: Status: Acute (4) Anemia due to chronic kidney disease: Status: Acute Plan Elderly woman with a history of stage 4 chronic kidney disease in the setting of longstanding hypertension and solitary right kidney. Status post left nephrectomy for renal cell carcinoma. recent MRI shows benign cyst in right kidney. Given this finding, cyst is unlikely contributor to hypertension. Doppler of renal artery was not suggestive of renal artery stenosis. Recommendations: Optimize blood pressure. Continue losartan 100mg daily, carvedilol 20mg daily Hold diuretic (hold lasix), suspect drop in BP earlier today related to hypovolemia. continue calcium supplement with meals- phosophorous binders with meals to aid in lowering phosphorous. Goal is to achieve target systolic blood pressure of 140 to 160 mm Hg Avoid rapid drops in blood pressure and rapidly active antihypertensive agents. Monitor renal function Iron deficiency anemia, recommend iron supplementation. Once the blood pressure is optimized we will re-evaluate her for erythropoietin replacement therapy to correct anemia. Discussed with Dr Ruvalcaba She will follow along with the team. Thank you Time Spent With Patient Time: Total time managing care of this patient today ____ minutes. Progress Note: Quality Stroke Does the patient have a stroke diagnosis?: No
[2024-05-11] VITALS (9 sets, daily range): BP systolic 79–184; BP diastolic 45–80; PULSE 68–75; RESP 16–19; TEMP 35.7–36.6; O2SAT 69–100
[2024-05-11] MEDS: 0.9 % Sodium Chloride Flush 3 ML SYRINGE IVFLUSH ×4 (00:02→20:04)
[2024-05-11] MEDS: Heparin Sodium,Porcine 5,000 UNIT/ML VIAL 5000 UNIT SUBCUT ×2 (06:02→15:24)
[2024-05-11 06:58] LABS: MANUAL DIFF FLAG NO
[2024-05-11 07:12] LABS: Basophils Percent Auto 0.6 % (0-2); Eosinophils Absolute Auto 0.3 X10*3/uL (0.0-0.4); Eosinophils Percent Auto 4.1 % (0-4); Hematocrit 26.5 % (37.0-47.0); Hemoglobin 8.4 g/dl (12.0-16.0); Imm Gran Abs Auto 0.02 X10*3/uL (0.00-0.03); Imm Gran Pct Auto 0.3 % (0.0-0.4); Lymphocytes Absolute Auto 1.3 X10*3/uL (1.2-4.9); Lymphocytes Percent Auto 20.2 % (20-40); Mean Corpuscular HGB Conc 31.7 g/dl (31.0-35.0); Mean Corpuscular Hemoglobin 29.7 pg (27.0-33.0); Mean Corpuscular Volume 93.6 fL (80.0-98.0); Mean Platelet Volume 11.8 fL (9.4-12.3); Neutrophils Absolute Auto 3.7 x10*3/uL (2.0-8.3); Neutrophils Percent Auto 58.8 % (45-73); Platelet Count 222 X10*3/uL (160-400); Red Blood Count 2.83 X10*6/uL (4.20-5.50); Red Cell Distribution Width 14.6 % (11.0-16.0); White Blood Count 6.3 X10*3/uL (4.8-10.8)
[2024-05-11 07:16] LABS: Anion Gap 14 (12-20); Blood Urea Nitrogen 60 mg/dL (9-16); Calcium 9.4 mg/dL (8.4-10.2); Carbon Dioxide 22 mmol/L (22-29); Chloride 107 mmol/L (96-108); Estimated Glomerular Filt Rate 18; Glucose Random 99 mg/dL (60-115); Magnesium 2.4 mg/dL (1.6-2.6); Phosphorus 5.2 mg/dL (2.7-4.5); Potassium 3.5 mmol/L (3.3-5.1); Sodium 139 mmol/L (135-145)
--- NOTE | 2024-05-11 08:25 | MHC.CM.PN ---
Addendum entered by Clementina Villar RN 05/11/24 09:54: CM ATTEMPTED TO CONTACT JESUS NINO AT 9:45AM, CM WAS TRNASFERRED TO HER EXTENSION HOWEVER NO ANSWER AND 2ND DETAILED MESSAGE LEFT. Original Note: CM ATTEMPTED TO CONTACT ADINA SHEN AT [facility] AT 8:22AM HOWEVER JESUS NINO NOT IN YET, CM TO REVISIT.
[2024-05-11] MEDS: Sertraline HCL 50 MG TABLET PO (08:39)
[2024-05-11] MEDS: Calcium + Vitamin D 250 MG TABLET PO (08:39)
[2024-05-11] MEDS: Multivitamin TABLET 1 TAB PO (08:39)
[2024-05-11] MEDS: Aspirin 81 MG TAB.CHEW PO (08:39)
[2024-05-11] MEDS: Ferrous Sulfate 324 MG TABLET.DR PO (08:39)
[2024-05-11] MEDS: Folic Acid 1 MG TABLET PO (08:39)
--- NOTE | 2024-05-11 10:34 | MHC.CM.PN ---
Addendum entered by Clementina Villar RN 05/11/24 14:21: DARIA EMAILED TO [employer] [facility]ER[facility] [facility]A AT [email or web address], ELLA UPDATED ON PT'S STATUS, ELLA REPORTS THEY WILL HOLD BED FOR PT AND CM WILL FOLLOW UP IN AM. Original Note: EMR REVIEWED, PER HOSPITAL PT IN ORTHOSTASIS AND NOT YET MEDICALLY CLEARED FOR DC, HOSPITALIST ALSO REPORTING PT WILL NEED OUTPT FOLLOW-UP W/NEPHRO AND CAN BE DONE A TELE-HEALTH VISIT, PT'S SON/HCP AKOSUA UPDATED AND CM WILL CHANGE PT'S NUMBER IN EXPANSE TO KEVINS # FOR FOLLOW-UP PURPOSES D/T PT'S DEMENTIA, CM STILL AWAITING CALL BACK FROM ADINA AT [facility], CM WILL CONT TO FOLLOW DC NEEDS.
--- NOTE | 2024-05-11 11:10 | HO.PM.IMPN ---
Subjective Subjective Date of Service: 05/11/24 Interval History: Highly orthostatic with supine BP 184/76, standing 79/45 with symptoms of lightheadedness Neck pain + dyspnea improved Occasional runs of SVT Review of Systems Review of Systems: Yes all other systems are reviewed and are negative Physical Exam Vital Signs: Vital Signs: Last Vital Signs Temp 97.5 F 05/11/24 07:38 Pulse 72 05/11/24 10:39 Resp 18 05/11/24 07:38 BP 79/45 L 05/11/24 10:39 Pulse Ox 72 L 05/11/24 08:37 O2 Del Method Room Air 05/11/24 04:00 O2 Flow Rate 1.5 05/08/24 00:00 BMI result Body Mass Index 20.5 Gen: in no acute distress HEENT: sclera anicteric, moist mucus membranes Neck: supple Lungs: clear to auscultation bilaterally Heart: regular rate and rhythm, no murmurs Abd: soft, non-tender, non-distended Ext: no edema Skin: warm/well-perfused Neuro: alert and oriented to self/place, no focal weakness Psych: appropriate affect Objective Data Active Medications Aspirin (Aspirin 81 Mg Tab.Chew) 81 mg PO DAILY [facility] Last Admin: 05/11/24 08:39 Dose: 81 mg Documented By: JAVIER Calcium Carbonate/Cholecalciferol (Calcium + Vitamin D 250 Mg Tablet) 250 mg PO DAILY [facility] Last Admin: 05/11/24 08:39 Dose: 250 mg Documented By: JAVIER Carvedilol (Carvedilol 25 Mg Tablet) 25 mg PO BID [facility] Last Admin: 05/11/24 10:57 Dose: Not Given Documented By: JAVIER Non-Admin Reason: Physician Held Med Ferrous Sulfate (Ferrous Sulfate 324 Mg Tablet.) 324 mg PO DAILY [facility] Last Admin: 05/11/24 08:39 Dose: 324 mg Documented By: JAVIER Folic Acid (Folic Acid 1 Mg Tablet) 1 mg PO DAILY [facility] Last Admin: 05/11/24 08:39 Dose: 1 mg Documented By: JAVIER Furosemide (Furosemide 20 Mg Tablet) 20 mg PO DAILY [facility]; Protocol Last Admin: 05/11/24 10:58 Dose: Not Given Documented By: JAVIER Non-Admin Reason: Physician Held Med Heparin Sodium (Porcine) (Heparin Sodium,Porcine 5,000 Unit/Ml Vial) 5,000 unit SUBCUT Q12H [facility] Last Admin: 05/11/24 06:02 Dose: 5,000 unit Documented By: JAMEE Comments: downtime meditech Sodium Chloride (Ns) 500 mls @ 125 mls/hr IVCONT .Q4H [facility] Last Admin: 05/11/24 10:57 Dose: Not Given Documented By: JAVIER Non-Admin Reason: Physician Held Med Losartan Potassium (Losartan Potassium 50 Mg Tablet) 100 mg PO DAILY [facility] Last Admin: 05/11/24 10:58 Dose: Not Given Documented By: JAVIER Non-Admin Reason: Physician Held Med Multivitamins/Vitamin C (Multivitamin Tablet) 1 tab PO DAILY [facility] Last Admin: 05/11/24 08:39 Dose: 1 tab Documented By: JAVIER Sertraline HCl (Sertraline Hcl 50 Mg Tablet) 50 mg PO DAILY [facility] Last Admin: 05/11/24 08:39 Dose: 50 mg Documented By: JAVIER Sodium Chloride (0.9 % Sodium Chloride Flush 3 Ml Syringe) 3 ml IVFLUSH QSHIFT [facility] Last Admin: 05/11/24 08:38 Dose: 3 ml Documented By: JAVIER Labs 05/11/24 06:35 05/11/24 06:35 Labs: Laboratory Results - last 24 hr 05/10/24 05/10/24 05/11/24 06:31 12:57 06:35 MCV 93.6 MCH 29.7 MCHC 31.7 RDW 14.6 Plt Count 222 MPV 11.8 Immature Gran % (Auto) 0.3 Neut % (Auto) 58.8 Lymph % (Auto) 20.2 [place] % (Auto) 16.0 H Eos % (Auto) 4.1 H Baso % (Auto) 0.6 Lymph # (Auto) 1.3 [place] # (Auto) 1.0 Eos # (Auto) 0.3 Baso # (Auto) 0.0 Abs Immat Gran (auto) 0.02 Absolute Neuts (auto) 3.7 Absolute Nucleated RBC 0.000 Nucleated RBC % (auto) 0.0 Anion Gap 14 Estim Creat Clear Calc 16.0 Estimated GFR 18 Random Glucose 99 Lactic Acid 1.5 Calcium 9.4 Phosphorus 5.2 H Magnesium 2.4 C-Reactive Protein 0.29 Procalcitonin 0.19 Assessment and Plan (1) SVT (supraventricular tachycardia): Status: Acute (2) Hypertensive emergency: Status: Acute Plan d5 79yo F with HTN, 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, CKD4, dementia, HFpEF presenting with acute dyspnea and diuresed; had HTN emergency and admitted to ICU for nicardipine drip; restarted home carvedilol + losartan, also started on HCTZ, and stepped down to telemetry 05/08 HTN emergency orthostatic HTN - discussed with Nephrology: will give carvedilol only at hs; d/c losartan + furosemide; consider outpt norethindrone; TEDs; no midodrine for now - send plasma metanephrines + catecholamines - outpt f/u with Nephrology by televisit since she is going to [facility] in [place] 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 TTE with findings of ischemic caridomyopathy but invasive treatment not recommended by Cardiology VTE ppx - UFH dispo - plan STR In my clinical judgment, the patient requires continued inpatient hospitalization for the following reasons: labile BP Total time managing care of this patient today: 50 minutes. Quality Stroke Does the patient have a stroke diagnosis?: No VTE Prior VTE?: No VTE Risk Level:: Medical - low VTE Device Contraindication: N/A - Device Ordered VTE Drug Contraindication: N/A - Med Ordered
--- NOTE | 2024-05-11 12:24 | PM.PNNEP ---
Subjective Subjective Date of Service: 05/11/24 Interval history: 79-year-old female with hypertension, single kidney (s/p left nephrectomy for tumor), early dementia presented to ED for hyeprtensive urgency, being evaluated for HTN and chronic kidney disease. MRI of right kidney with benign cyst and cortical lesion, no dedicated follow up recommended per radiology. currently taking carvedilol 25mg BID PO, losartan 100mg PO daily, and furosemide 20mg PO daily had episode of dizziness and BP in low 100s yesterday when out of bed to chair. This a.m. has significant orthostatic hypotension again, SBP dropped from 130s to 70s upon standing. Pt reports dizziness during episode. pt denies current shortness of breath, chest pain, swelling, dizziness, headaches, and denies urinary symptoms including dysuria, difficulty emptying bladder, flank pain, blood in her urine. Physical Exam Vital Signs: Vital Signs: Last Vital Signs Temp 96.9 F 05/11/24 11:13 Pulse 75 05/11/24 11:13 Resp 18 05/11/24 11:13 BP 110/52 L 05/11/24 11:13 Pulse Ox 100 05/11/24 11:13 O2 Del Method Room Air 05/11/24 11:13 O2 Flow Rate 1.5 05/08/24 00:00 BMI result Body Mass Index 20.5 Const: General: comfortable and no acute distress Orientation/consciousness: oriented to person, oriented to place and oriented to time Neck: Neck: Yes no JVD Resp: Effort & Inspection: able to speak in complete sentences Auscultation: clear to auscultation bilaterally Cardio: Jugular venous distension: no JVD Rate: regular rate Rhythm: regular rhythm Heart sounds: S1 normal heart sound present, S2 normal heart sound present and Murmur heart sound present GI: Palpation (GI): Soft to palpation Rectal Exam - Female: No tenderness : General: Yes no CVA tenderness Back/Spine/Pelvis: Back: no CVA tenderness Skin: Rashes: no rashes Neuro: General: oriented to person, oriented to place and oriented to time Extrem: General: Yes normal to inspection, No edema and No pedal edema Objective Data Labs 05/11/24 06:35 05/11/24 06:35 Labs: Laboratory Results - last 24 hr 05/10/24 05/10/24 05/11/24 06:31 12:57 06:35 WBC 6.3 RBC 2.83 L Hgb 8.4 L Hct 26.5 L MCV 93.6 MCH 29.7 MCHC 31.7 RDW 14.6 Plt Count 222 MPV 11.8 Immature Gran % (Auto) 0.3 Neut % (Auto) 58.8 Lymph % (Auto) 20.2 [place] % (Auto) 16.0 H Eos % (Auto) 4.1 H Baso % (Auto) 0.6 Lymph # (Auto) 1.3 [place] # (Auto) 1.0 Eos # (Auto) 0.3 Baso # (Auto) 0.0 Abs Immat Gran (auto) 0.02 Absolute Neuts (auto) 3.7 Absolute Nucleated RBC 0.000 Nucleated RBC % (auto) 0.0 Sodium 139 Potassium 3.5 Chloride 107 Carbon Dioxide 22 Anion Gap 14 BUN 60 H Creatinine 2.54 H Estim Creat Clear Calc 16.0 Estimated GFR 18 Random Glucose 99 Lactic Acid 1.5 Calcium 9.4 Phosphorus 5.2 H Magnesium 2.4 C-Reactive Protein 0.29 Procalcitonin 0.19 Procedures Date of Service Date of Service: 05/11/24 Assessment & Plan Assessment and plan (1) Hypertensive urgency: Status: Acute (2) CKD (chronic kidney disease) stage 4, GFR 15-29 ml/min: Status: Acute (3) Solitary kidney, acquired: Status: Acute (4) Anemia due to chronic kidney disease: Status: Acute (5) Orthostatic hypotension: Status: Acute Plan Elderly woman with a history of stage 4 chronic kidney disease in the setting of longstanding hypertension and solitary right kidney. Status post left nephrectomy for renal cell carcinoma. significant supine hypertension with orthostatic hypotension ([facility]) Given benign MRI findings, renal cyst is unlikely contributor to hypertension. Doppler of renal artery was not suggestive of renal artery stenosis. Recommendations: Continue losartan 100mg daily at bedtime, carvedilol 25mg PO daily at nighttime PRN for SBP> 150, lasix 20mg daily PO Goal is to achieve target systolic blood pressure of 140 to 160 mm Hg Avoid rapid drops in blood pressure and rapidly active antihypertensive agents. recommend checking catecholamines hold off on midodrine for now recommend precautions for orthostasis: compression stockings, slow movements from sitting to standing- avoid rapid position changes, head elecated at 30 degrees while supine. Monitor renal function continue calcium supplement with meals- phosophorous binder to aid in lowering phosphorous. Iron deficiency anemia, recommend iron supplementation. Once the blood pressure is optimized we will re-evaluate her for erythropoietin replacement therapy to correct anemia. Discussed with Dr Ruvalcaba She will follow along with the team. Thank you Time Spent With Patient Time: Total time managing care of this patient today ____ minutes. Progress Note: Quality Stroke Does the patient have a stroke diagnosis?: No
[2024-05-12] VITALS (8 sets, daily range): BP systolic 146–214; BP diastolic 59–76; PULSE 66–110; RESP 16–20; TEMP 36.1–36.9; O2SAT 98–100
[2024-05-12] MEDS: Heparin Sodium,Porcine 5,000 UNIT/ML VIAL 5000 UNIT SUBCUT (02:29)
[2024-05-12 07:09] LABS: MANUAL DIFF FLAG NO
[2024-05-12 07:20] LABS: Basophils Percent Auto 0.9 % (0-2); Eosinophils Absolute Auto 0.2 X10*3/uL (0.0-0.4); Eosinophils Percent Auto 5.6 % (0-4); Hemoglobin 8.1 g/dl (12.0-16.0); Imm Gran Abs Auto 0.02 X10*3/uL (0.00-0.03); Imm Gran Pct Auto 0.5 % (0.0-0.4); Lymphocytes Absolute Auto 1.1 X10*3/uL (1.2-4.9); Lymphocytes Percent Auto 26.6 % (20-40); Mean Corpuscular HGB Conc 31.2 g/dl (31.0-35.0); Mean Corpuscular Hemoglobin 29.2 pg (27.0-33.0); Mean Corpuscular Volume 93.9 fL (80.0-98.0); Mean Platelet Volume 11.9 fL (9.4-12.3); Monocytes Absolute Auto 0.7 X10*3/uL (0.1-1.2); Monocytes Percent Auto 15.2 % (2-11); Neutrophils Absolute Auto 2.2 x10*3/uL (2.0-8.3); Neutrophils Percent Auto 51.2 % (45-73); Platelet Count 196 X10*3/uL (160-400); Red Blood Count 2.77 X10*6/uL (4.20-5.50); White Blood Count 4.3 X10*3/uL (4.8-10.8)
[2024-05-12 08:02] LABS: Anion Gap 13 (12-20); Blood Urea Nitrogen 63 mg/dL (9-16); Calcium 9.7 mg/dL (8.4-10.2); Carbon Dioxide 22 mmol/L (22-29); Chloride 108 mmol/L (96-108); Creatinine Clr Calc Pharmacy 16.6; Estimated Glomerular Filt Rate 19; Glucose Random 94 mg/dL (60-115); Magnesium 2.2 mg/dL (1.6-2.6); Phosphorus 4.9 mg/dL (2.7-4.5); Potassium 3.8 mmol/L (3.3-5.1); Sodium 139 mmol/L (135-145)
[2024-05-12] MEDS: Calcium + Vitamin D 250 MG TABLET PO (08:39)
[2024-05-12] MEDS: Aspirin 81 MG TAB.CHEW PO (08:39)
[2024-05-12] MEDS: 0.9 % Sodium Chloride Flush 3 ML SYRINGE IVFLUSH (08:39)
[2024-05-12] MEDS: Multivitamin TABLET 1 TAB PO (08:40)
[2024-05-12] MEDS: Ferrous Sulfate 324 MG TABLET.DR PO (08:40)
[2024-05-12] MEDS: Folic Acid 1 MG TABLET PO (08:40)
[2024-05-12] MEDS: Sertraline HCL 50 MG TABLET PO (08:40)
--- NOTE | 2024-05-12 10:05 | P.PNNP_ITS ---
Subjective Subjective Date of Service: 05/12/24 Interval history: 79-year-old female with hypertension, single kidney (s/p left nephrectomy for tumor), early dementia presented to ED for hyeprtensive urgency, being evaluated for HTN and chronic kidney disease. MRI of right kidney with benign cyst and cortical lesion, no dedicated follow up recommended per radiology. currently taking carvedilol 25mg at nighttime PRN for SBP>150 pt having significant supine hypertension with orthostatic hypotension pt reports feeling well overnight when she was pt denies current shortness of breath, chest pain, swelling, dizziness, headaches, and denies urinary symptoms including dysuria, difficulty emptying bladder, flank pain, blood in her urine. Physical Exam 2 Vital Signs: Vital Signs: Last Vital Signs Temp 97.8 F 05/12/24 07:43 Pulse 84 05/12/24 08:43 Resp 16 05/12/24 07:43 BP 153/65 H 05/12/24 08:43 Pulse Ox 100 05/12/24 07:43 O2 Del Method Room Air 05/12/24 07:43 O2 Flow Rate 1.5 05/08/24 00:00 BMI result Body Mass Index 20.5 Const: General: comfortable and no acute distress O rientation/consciousness: oriented to person, oriented to place and oriented to time Neck: Neck: Yes no JVD Resp: Effort & Inspection: able to speak in complete sentences A uscultation: clear to auscultation bilaterally Cardio: Jugular venous distension: no JVD Rate: regular rate Rhythm: r egular rhythm Heart sounds: S1 normal heart sound present, S2 normal heart sound present and Murmur heart sound present GI: Palpation (GI): Soft to palpation Rectal Exam - Female: No tenderness : General: Yes no CVA tenderness Back/Spine/Pelvis: Back: no CVA tenderness Skin: Rashes: no rashes Neuro: General: oriented to person, oriented to place and oriented to time Extrem: General: Yes normal to inspection, No edema and No pedal edema Objective Data Labs 05/12/24 06:33 05/12/24 06:33 Labs: Laboratory Results - last 24 hr 05/12/24 06:33 WBC 4.3 L RBC 2.77 L Hgb 8.1 L Hct 26.0 L MCV 93.9 MCH 29.2 MCHC 31.2 RDW 14.0 Plt Count 196 MPV 11.9 Immature Gran % (Auto) 0.5 H Neut % (Auto) 51.2 Lymph % (Auto) 26.6 [place] % (Auto) 15.2 H Eos % (Auto) 5.6 H Baso % (Auto) 0.9 Lymph # (Auto) 1.1 L [place] # (Auto) 0.7 Eos # (Auto) 0.2 Baso # (Auto) 0.0 Abs Immat Gran (auto) 0.02 Absolute Neuts (auto) 2.2 Absolute Nucleated RBC 0.000 Nucleated RBC % (auto) 0.0 Sodium 139 Potassium 3.8 Chloride 108 Carbon Dioxide 22 Anion Gap 13 BUN 63 H Creatinine 2.45 H Estim Creat Clear Calc 16.6 Estimated GFR 19 Random Glucose 94 Calcium 9.7 Phosphorus 4.9 H Magnesium 2.2 Procedures Date of Service Date of Service: 05/12/24 Assessment & Plan Assessment and plan (1) Hypertensive urgency: Status: Acute (2) CKD (chronic kidney disease) stage 4, GFR 15-29 ml/min: Status: Acute (3) Solitary kidney, acquired: Status: Acute (4) Anemia due to chronic kidney disease: Status: Acute (5) Orthostatic hypotension: Status: Acute Plan Elderly woman with a history of stage 4 chronic kidney disease in the setting of longstanding hypertension and solitary right kidney. Status post left nephrectomy for renal cell carcinoma. significant supine hypertension with orthostatic hypotension ([facility]) Given benign MRI findings, renal cyst is unlikely contributor to hypertension. Doppler of renal artery was not suggestive of renal artery stenosis. Recommendations: Add losartan 50mg daily at bedtime, continue carvedilol 25mg PO daily at nighttime PRN for SBP> 150 Goal is to achieve target systolic blood pressure of 140 to 160 mm Hg Avoid rapid drops in blood pressure and rapidly active antihypertensive agents. catecholamines pending recommend precautions for orthostasis: compression stockings, slow movements from sitting to standing- avoid rapid position changes, head elecated at 30 degrees while supine. Monitor renal function continue calcium supplement with meals- phosophorous binder to aid in lowering phosphorous. Iron deficiency anemia, recommend iron supplementation. Once the blood pressure is optimized we will re-evaluate her for erythropoietin replacement therapy to correct anemia. Discussed with Dr Ruvalcaba She will follow along with the team. Thank you Time Spent With Patient Time: Total time managing care of this patient today ____ minutes. Progress Note: Quality Stroke Does the patient have a stroke diagnosis?: No
--- NOTE | 2024-05-12 11:23 | MHC.CM.PN ---
Second IMM given 05/12, addressed with pts son/HCP Clarence (present at bedside) due to pts confusion. Pt is medically cleared for discharge to [facility] today. Pt will transport there via [facility] at 12pm. This CM spoke with Fritz in admissions at [facility] to confirm transport time.
--- NOTE | 2024-05-12 11:25 | PM.DS ---
DS: Providers Provider Date of Service: 05/12/24 Date of admission: 05/07/24 14:39 Date of discharge: 05/12/24 Primary care physician: Kevan Ang MD Consults: 05/08/24 16:24 Consult to Nephrology Routine Consulting Provider: [facility] Reason for consultation: HTN emergency with solitary kidney 05/09/24 09:31 Consult to Cardiology Routine Consulting Provider: [facility] Reason for consultation: Vtach DS: Diagnosis Discharge Diagnosis (1) Solitary kidney, acquired: Status: Acute (2) Anemia due to chronic kidney disease: Status: Acute (3) Orthostatic hypotension: Status: Acute (4) Hypertensive emergency: Status: Acute (5) SVT (supraventricular tachycardia): Status: Acute (6) Elevated TSH: Status: Acute (7) Acute worsening of stage 4 chronic kidney disease: Status: Acute (8) Renal cysts, acquired, bilateral: Status: Acute (9) Pancreatic cyst: Status: Acute (10) Fluid overload: Status: Acute DS: Summary Hospital Course Hospital Course: From the history and physical by the admitting intenivist, Dr Pepito Bingham, 05/07/24: This 79-year-old sweet elderly lady with past medical history of hypertension, single kidney (s/pnephrectomy for tumor), early dementia had presented to the hospital as her is being he had at the ER overflow due to advanced Alzheimer's disease. Her blood pressure was found to be in 230 systolic so MICU was consulted for admission. According to the son who is her POA her home blood pressure has been ranging around 180s for the past month, she is on carvedilol and losartan 100 mg daily at home which she has been taking. She was put on amlodipine in the past but it caused lower extremity swelling so she stopped taking it. 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 She was diuresed and then admitted to the ICU for an IV nicardipine drip. She was restarted on home carvedilol + losartan, then stepped down to the telemetry unit 05/08. She had extremely labile blood pressure including florid orthostatic hypotension with standing BP dropping as low as 79/48. Nephrology was consulted. No renal artery stenosis in the solitary kidney and no evidence of renal cell carcinoma [she has a Bosniak type 2 5 cm cyst in the lateral midpole of the kidney; no further workup is required; also there as an additional subcentimeter lesion in the lower pole too small to characterize]. Ultimately, CHRISTIN stockings were placed with careful orthostatic precautions [slow movements from sitting to standing- avoid rapid position changes, head elevated at 30 degrees while supine] and her BP was managed with losartan 50 mg qhs standing PLUS carvedilol 25 mg qhs prn SBP of 150 or greater. BP target for her is no less than 150/80 due to the severe orthostasis. Plasma metanephrines and catecholamines were drawn on 05/11/24 and will be followed up by the consulting journalism intern [Dr Jeff Ruvalcaba of [facility]]. The patient will follow up with [facility] via televisit in 2 weeks and should have daily orthostatic vital signs checked until then. She may eventually benefit from droxidopa therapy. She had some acute worsening of her creatinine, likely due to uncontrolled BP; this improved over the course of hospitalization. BMP should be repeated in 1 week. Hospitalization was also noted for runs of SVT without symptoms. Cardiology was consulted. TTE showed normal EF but grade 2 diastolic dysfunction and inferior and inferolateral hypokinesis. Given her age, frailty, and renal insufficiency invasive treatment was not recommended. Carvedilol will be continued as above. She was discharged to [facility] in [place] for short-term rehabilitation and will establish primary care in that area once she gets transferred to assisted living facility there. Incidentally, a subcentimeter pancreatic cyst was found on imaging and consideration could be given to follow-up imaging in 2 years. TSH was also elevated with normal free T4 and recommend repeat TFTs in 6 weeks. Time Attestation Discharge Coordination Time (in mins): 55 Quality: Safe Use of Opioids Does Pt have an Active Cancer Diagnosis on the Problem List?: No Quality: Stroke Does the patient have a stroke diagnosis?: No Physical Exam Vital Signs: Vital Signs: Last Vital Signs Temp 97.8 F 05/12/24 07:43 Pulse 84 05/12/24 08:43 Resp 16 05/12/24 07:43 BP 153/65 H 05/12/24 08:43 Pulse Ox 100 05/12/24 07:43 O2 Del Method Room Air 05/12/24 07:43 O2 Flow Rate 1.5 05/08/24 00:00 BMI result Body Mass Index 20.5 Gen: in no acute distress HEENT: sclera anicteric, moist mucus membranes Neck: supple Lungs: clear to auscultation bilaterally Heart: regular rate and rhythm, no murmurs Abd: soft, non-tender, non-distended Ext: no edema Skin: warm/well-perfused Neuro: alert and oriented to self/place, no focal weakness Psych: appropriate affect DS: Data Data Completed and Pending Completed studies during hospitalization [Text1]: Laboratory Results WBC 4.3 X10*3/uL (4.8-10.8) L 05/12/24 06:33 RBC 2.77 X10*6/uL (4.20-5.50) L 05/12/24 06:33 Hgb 8.1 g/dl (12.0-16.0) L 05/12/24 06:33 Hct 26.0 % (37.0-47.0) L 05/12/24 06:33 MCV 93.9 fL (80.0-98.0) 05/12/24 06:33 MCH 29.2 pg (27.0-33.0) 05/12/24 06:33 MCHC 31.2 g/dl (31.0-35.0) 05/12/24 06:33 RDW 14.0 % (11.0-16.0) 05/12/24 06:33 Plt Count 196 X10*3/uL (160-400) 05/12/24 06:33 MPV 11.9 fL (9.4-12.3) 05/12/24 06:33 Immature Gran % (Auto) 0.5 % (0.0-0.4) H 05/12/24 06:33 Neut % (Auto) 51.2 % (45-73) 05/12/24 06:33 Lymph % (Auto) 26.6 % (20-40) 05/12/24 06:33 [place] % (Auto) 15.2 % (2-11) H 05/12/24 06:33 Eos % (Auto) 5.6 % (0-4) H 05/12/24 06:33 Baso % (Auto) 0.9 % (0-2) 05/12/24 06:33 Lymph # (Auto) 1.1 X10*3/uL (1.2-4.9) L 05/12/24 06:33 [place] # (Auto) 0.7 X10*3/uL (0.1-1.2) 05/12/24 06:33 Eos # (Auto) 0.2 X10*3/uL (0.0-0.4) 05/12/24 06:33 Baso # (Auto) 0.0 X10*3/uL (0.0-0.2) 05/12/24 06:33 Abs Immat Gran (auto) 0.02 X10*3/uL (0.00-0.03) 05/12/24 06:33 Absolute Neuts (auto) 2.2 x10*3/uL (2.0-8.3) 05/12/24 06:33 Absolute Nucleated RBC 0.000 X10*3/uL (0.0-0.012) 05/12/24 06:33 Nucleated RBC % (auto) 0.0 /100WBC (0.0-0.2) 05/12/24 06:33 Absolute Retic 0.071 X10*6/uL (0.026-0.095) 05/09/24 06:28 Percent Retic 2.5 % (0.5-1.8) H 05/09/24 06:28 Immature Retic Fraction 26.8 % (3.0-15.9) H 05/09/24 06:28 Retic Hgb Equivalent 30.2 pg (30.0-35.0) 05/09/24 06:28 VBG pH 7.52 (7.32-7.43) H 05/08/24 04:31 VBG pCO2 31 mmHg 05/08/24 04:31 VBG pO2 26 mmHg 05/08/24 04:31 VBG HCO3 26 mmol/L (22-26) 05/08/24 04:31 VBG O2 Saturation < 30.0 % 05/08/24 04:31 VBG Base Excess 3.7 mmol/L 05/08/24 04:31 Sodium 139 mmol/L (135-145) 05/12/24 06:33 Potassium 3.8 mmol/L (3.3-5.1) 05/12/24 06:33 Chloride 108 mmol/L (96-108) 05/12/24 06:33 Carbon Dioxide 22 mmol/L (22-29) 05/12/24 06:33 Anion Gap 13 (12-20) 05/12/24 06:33 BUN 63 mg/dL (9-16) H 05/12/24 06:33 Creatinine 2.45 mg/dL (0.5-1.4) H 05/12/24 06:33 Estim Creat Clear Calc 16.6 05/12/24 06:33 Estimated GFR 19 05/12/24 06:33 POC Glucose 126 mg/dL (60-115) H 05/09/24 09:21 Random Glucose 94 mg/dL (60-115) 05/12/24 06:33 Lactic Acid 1.5 mmol/L (0.5-2.0) 05/10/24 12:57 Calcium 9.7 mg/dL (8.4-10.2) 05/12/24 06:33 Phosphorus 4.9 mg/dL (2.7-4.5) H 05/12/24 06:33 Magnesium 2.2 mg/dL (1.6-2.6) 05/12/24 06:33 Iron 15 mcg/dL (30-160) L 05/09/24 06:28 TIBC 294 mcg/dL (228-428) 05/09/24 06:28 % Saturation 5 % (15-50) L 05/09/24 06:28 Unsat Iron Binding 279 ug/dL 05/09/24 06:28 Ferritin 27 ng/mL (10-250) 05/09/24 06:28 Total Bilirubin 0.6 mg/dL (0.0-1.0) 05/08/24 04:31 AST 17 U/L (5-31) 05/08/24 04:31 ALT 13 U/L (0-31) 05/08/24 04:31 Alkaline Phosphatase 57 U/L (39-117) 05/08/24 04:31 Lactate Dehydrogenase 210 U/L (122-220) 05/09/24 06:28 Troponin I High Sens 11.1 ng/L (<3.5-17.0) 05/09/24 12:41 C-Reactive Protein 0.29 mg/dL (< or = 0.50) 05/10/24 06:31 B-Natriuretic Peptide 123 pg/mL (<100) H 05/10/24 06:31 Total Protein 7.1 g/dL (6.5-8.0) 05/08/24 04:31 Albumin 4.2 g/dL (3.5-5.0) 05/08/24 04:31 Vitamin B12 266 pg/mL (200-900) 05/09/24 12:41 Folate 14.0 ng/mL (> or = 4.0) 05/09/24 12:41 Procalcitonin 0.19 ng/mL 05/10/24 06:31 TSH 5.84 uIU/mL (0.32-4.0) H 05/08/24 10:09 Free T4 1.12 ng/dL (0.71-1.85) 05/08/24 10:09 Urine Color Yellow 05/08/24 Unknown Urine Appearance Clear 05/08/24 Unknown Urine pH 7.5 (5.0-9.0) 05/08/24 Unknown Ur Specific [place] 1.010 (1.005-1.025) 05/08/24 Unknown Urine Protein Negative mg/dL (Neg-Trace) 05/08/24 Unknown Urine Glucose (UA) Negative mg/dL (Negative) 05/08/24 Unknown Urine Ketones Negative mg/dL (Negative) 05/08/24 Unknown Urine Blood Negative (Negative) 05/08/24 Unknown Urine Nitrite Negative (Negative) 05/08/24 Unknown Ur Leukocyte Esterase Negative (Negative) 05/08/24 Unknown Urine RBC 0-2 /HPF (0-2) 05/08/24 Unknown Urine WBC 0-5 /HPF (0-5) 05/08/24 Unknown Ur Squamous Epith Cells 0-2 /HPF (0-2) 05/08/24 Unknown Urine Bacteria None Seen (None Seen) 05/08/24 Unknown Hyaline Casts 0-2 /LPF (0-2) 05/08/24 Unknown Blood Type O Positive 05/08/24 10:09 Antibody Screen NEGATIVE 05/08/24 10:09 Impressions Chest X-Ray 05/07/24 08:47 IMPRESSION: Interstitial and pulmonary vascular prominence with small bilateral pleural effusions and bibasilar airspace opacities, new/increased when compared to the prior examination. Findings can be seen in the setting of pulmonary edema. Electronically signed by: Juni Stearns MD 05/07/2024 09:26 AM EDT RP Abdomen MRI 05/09/24 15:13 IMPRESSION: Status post prior left nephrectomy. 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 No dedicated follow-up imaging is required. Additional non-enhancing/hypoenhancing subcentimeter cortical lesion in the anterior cortex of the lower pole of the right kidney without definite correlate on T2-weighted images is too small to characterize and may also relate to a minimally complex cyst. Small hepatic hemangiomas. Subcentimeter pancreatic cystic lesion. Follow-up imaging in 2 years is recommended. Small bilateral pleural effusions with bibasilar atelectasis Electronically signed by: Ayaz Zepeda MD 05/10/2024 09:37 AM EDT RP Pending studies at discharge: Drawn 05/11/24: plasma catecholamines and plasma metaphrines; to be followed by journalism intern Dr Ruvalcaba Discharge Plan Discharge Anticipated Discharge Date/Time: 05/12/24 11:10 Patient Disposition: Xfer [facility] Discharge Diagnosis: - hypertensive emergency - orthostatic hypotension - [id number] kidney disease stage 4 - supraventricular tachycardia incidental diagnoses: - renal cysts - pancreatic cyst - elevated TSH but normal free T4 Referrals: [facility] [Other] - 1 Day (SHORT TERM REHAB) Jeff Ruvalcaba MD [Physician] - 2 Weeks (Follow up via televisit; Dr Ruvalcaba consulted on patient in the hospital) Kevan Ang MD [Primary Care Provider] - 1 Week Discharge Medications: New carvedilol 25 mg Tablet 25 mg PO BEDTIME PRN (Reason: SBP of 150 or greater) Qty: 30 0RF Protocol: Hold for SBP/HR < HOLD for SBP < : 90 HOLD for HR < : 60 losartan 50 mg tablet 50 mg PO .daily@bedtime Qty: 30 0RF Continued ferrous sulfate 325 mg (65 mg iron) tablet,delayed release (DR/EC) 325 mg PO DAILY multivitamin Tablet 1 tab PO DAILY aspirin 81 mg Tablet,Delayed Release (Dr/Ec) 81 mg PO DAILY calcium carbonate-vitamin D3 [Calcium 600 + D(3)] 600 mg-10 mcg (400 unit) Tablet 1 tab PO DAILY sertraline 50 mg tablet 50 mg PO DAILY folic acid 1 mg Tablet 1 mg PO DAILY Qty: 30 0RF Discontinued carvedilol 12.5 mg tablet 12.5 mg PO BID losartan 100 mg tablet 100 mg PO DAILY Discharge Orders: Discharge Order (Routine); Ordered 05/12/24 Ordered By: Jelani Torres Diet: Advance to usual diet Activity on Discharge: As tolerated Stand Alone Forms: Patient Portal Discharge page Print Language: Greenlandic Other Ambulatory Orders: Basic Metabolic Panel (Routine) Timeframe: 1 Week Facility: [facility] - Location: Laboratory Ordered By: Jelani Torres Care Plan Goals: reasonable BP control fall prevention kidney health Health Concerns: - hypertensive emergency: - orthostatic hypotension: - CHRISTIN stockings to both legs - losartan 50 mg at bedtime - carvedilol 25 mg at bedtime if systolic blood pressure is 150 or greater - orthostatic precautions: slow movements from sitting to standing- avoid rapid position changes, head elevated at 30 degrees while supine - check orthostatic vital signs daily for next 2 weeks - follow up with [facility] [Dr Jeff Ruvalcaba] via televisit in 2 weeks - [id number] kidney disease stage 4: repeat BMP [nonfasting] in 1 week, follow up with Nephrology as above - supraventricular tachycardia: carvedilol as above incidental diagnoses: - renal cysts: no further workup recommended - pancreatic cyst: consider repeat imaging in 2 years - elevated TSH but normal free T4: consider repeat TSH in 6 weeks Plan of Treatment: as above Assessment: See Discharge Summary.
--- NOTE | 2024-05-12 14:02 | P.CDIM_ITS ---
PROVIDER RESPONSE TEXT: To clarify, the appropriate diagnosis supported by the clinical indicators: Mild QUERY TEXT: PHYSICIAN'S DOCUMENTATION REQUEST Date of Query: 05/09/2024 08:06 AM EDT Patient Name: Nataliya Forrest Admit Date: 05/07/2024 Dear Jelani Torres MD, A review of the medical record indicates additional documentation may be needed. Please review below and update the documentation accordingly. Documentation includes the diagnosis of malnutrition within ICU progress note dated 05/07 - Chronic ma lnutrition. We will improve diet as tolerated. Poor nutrition, underweight If possible, please provide additional specificity regarding the severity of the malnutrition using t he above information: Mild Moderate Severe Other (explain) Clinically unable to determine (explain) Thank you, Marleny Rosales, CCS, CDIS Use of terms such as suspected, likely, concern for, or probable (associated with a specific diagnosi s that is being evaluated, monitored, or treated as if it exists) are acceptable and can be coded in the inpatient se tting, when documented at the time of discharge. Please use your independent medical judgment in providing your response. THIS QUERY IS PART OF THE PERMANENT MEDICAL RECORD
[2024-05-15 21:13] LABS: Metanephrine, Free 37 pg/mL (<=57); Normetanephrines, Free 123 pg/mL (<=148); Total Metanephrine, Free 160 pg/mL (<=205)
== END 2024-05-12 12:17 | disposition skilled nursing facility (03) | DRG 305 ==
LOC: HO.ED 10:35 → HO.EDOVER 14:53 → HO.ICU 14:53 → HO.IMC 05-08 13:42
PROVIDERS: Internal Medicine Critical Care Medicine; Registered Nurse Community Health; Admitting Provider Internal Medicine Critical Care Medicine; Emergency Provider Emergency Medicine; PCP Family Medicine; Visit Provider Family Medicine
DX: I16.1 Hypertensive emergency (principal); I47.10 Supraventricular tachycardia, unspecified; N18.4 Chronic kidney disease, stage 4 (severe); I50.22 Chronic systolic (congestive) heart failure; E44.1 Mild protein-calorie malnutrition; Z68.20 Body mass index [BMI] 20.0-20.9, adult; I13.0 Hypertensive heart and chronic kidney disease with heart failure and stage 1 through stage 4 chronic kidney disease, or unspecified chronic kidney disease; I95.1 Orthostatic hypotension; N28.1 Cyst of kidney, acquired; G30.9 Alzheimer's disease, unspecified; Z66 Do not resuscitate; D63.1 Anemia in chronic kidney disease; F02.80 Dementia in other diseases classified elsewhere, unspecified severity, without behavioral disturbance, psychotic disturbance, mood disturbance, and anxiety; Z90.5 Acquired absence of kidney; Z23 Encounter for immunization; Z85.528 Personal history of other malignant neoplasm of kidney; Z79.82 Long term (current) use of aspirin; Z79.899 Other long term (current) drug therapy
CPT/HCPCS: 36415; 71045; 74183; 80048; 80053; 81001; 82384; 82607; 82728; 82746; 82803; 82947; 83540; 83605; 83615; 83735; 83835; 83880; 84100; 84145; 84439; 84443; 84484; 85025; 85045; 86140; 86850; 86900; 86901; 90656; 93005; 93306; 97110; 97162; 99285; A9585; J0360; J1644; J1940; J2060; J2404; P9047; Q9957

== ENCOUNTER 2024-05-07 14:39 | Outpatient (BNV) | payer MEDICARE, BC, SELFPAY | END 2024-05-09 07:00 | PROVIDERS: Admitting Provider Internal Medicine Critical Care Medicine; Emergency Provider Emergency Medicine; PCP Family Medicine; Visit Provider Internal Medicine | DX: I34.81 Nonrheumatic mitral (valve) annulus calcification (principal); I51.89 Other ill-defined heart diseases; R93.1 Abnormal findings on diagnostic imaging of heart and coronary circulation | CPT/HCPCS: 93306 ==

== ENCOUNTER → 2024-05-07 14:39 | Outpatient (BNV) | payer MEDICARE, BC, SELFPAY | PROVIDERS: Admitting Provider Internal Medicine Critical Care Medicine; Emergency Provider Emergency Medicine; PCP Family Medicine; Visit Provider Internal Medicine Hypertension Specialist | DX: I16.0 Hypertensive urgency (principal); N18.4 Chronic kidney disease, stage 4 (severe); Z90.5 Acquired absence of kidney; N18.9 Chronic kidney disease, unspecified; D63.1 Anemia in chronic kidney disease; I95.1 Orthostatic hypotension | CPT/HCPCS: 99223; 99232 ==

== ENCOUNTER → 2024-05-07 14:39 | Outpatient (BNV) | payer MEDICARE, BC, SELFPAY | PROVIDERS: Admitting Provider Internal Medicine Critical Care Medicine; Emergency Provider Emergency Medicine; PCP Family Medicine; Visit Provider Internal Medicine Critical Care Medicine | DX: I16.0 Hypertensive urgency (principal) | CPT/HCPCS: 99223; 99291 ==

== ENCOUNTER → 2024-05-07 14:39 | Outpatient (BNV) | payer MEDICARE, BC, SELFPAY | PROVIDERS: Admitting Provider Internal Medicine Critical Care Medicine; Emergency Provider Emergency Medicine; PCP Family Medicine; Visit Provider Internal Medicine | DX: I47.10 Supraventricular tachycardia, unspecified (principal); N18.4 Chronic kidney disease, stage 4 (severe) | CPT/HCPCS: 99223; 99233 ==

== ENCOUNTER → 2024-05-07 14:39 | Outpatient (BNV) | payer MEDICARE, BC, SELFPAY | PROVIDERS: Admitting Provider Internal Medicine Critical Care Medicine; Emergency Provider Emergency Medicine; PCP Family Medicine; Visit Provider Family Medicine | DX: Z90.5 Acquired absence of kidney (principal); N18.4 Chronic kidney disease, stage 4 (severe); D63.1 Anemia in chronic kidney disease; I95.1 Orthostatic hypotension; I16.1 Hypertensive emergency; I47.10 Supraventricular tachycardia, unspecified; R79.89 Other specified abnormal findings of blood chemistry; N28.1 Cyst of kidney, acquired; K86.2 Cyst of pancreas; E87.70 Fluid overload, unspecified | CPT/HCPCS: 99232; 99233; 99239; 99499 ==